=== PATIENT | female | born 1985 | race Caucasian/White ===

== ENCOUNTER 2018-03-21 01:31 | Inpatient (IN) | payer OTHER ==
[~2018-03-21] VITALS: Ht 162.6 cm; Wt 103.6 kg
[2018-03-21 04:15] LABS: CLARITY,URINE CLOUDY (CLEAR); COLOR,URINE AMBER (YELLOW)
[2018-03-21 04:16] LABS: BACTERIA,URINE MANY /HPF; BILIRUBIN,URINE NEGATIVE (NEGATIVE); EPITHELIAL CELLS,URINE FEW /LPF; KETONES,URINE TRACE (NEGATIVE); LEUKOCYTE ESTERASE ,URINE 1+ (NEGATIVE); MUCUS,URINE MANY (RARE); NITRITE,URINE POSITIVE (NEGATIVE); PROTEIN,URINE DIPSTICK 2+ (NEGATIVE); RBC,URINE >50 /HPF (0-5); URINE UROBILINOGEN 0.2 mg/dL (0.2 - 1); WBC,URINE (MAN) 21-50 /HPF (0-5)
[2018-03-21] MEDS ORDERED: CEFTRIAXONE SOD 1 GM/NS 50 ML 50 ML IV ONE (04:45)
[2018-03-21 04:46] LABS: BASOPHILS % 0.4 % (0.0-1.0); EOSINOPHILS # (AUTO) 0.4 (0.0-0.4); EOSINOPHILS % 4.1 % (0.0-6.0); HEMATOCRIT 42.7 % (34.2-44.1); HEMOGLOBIN 13.8 g/dL (12.0-16.0); LYMPHOCYTES # (AUTO) 5.6 (1.0-3.2); LYMPHOCYTES % 54.3 % (18.0-39.1); MEAN CORPUSCULAR HEMOGLOBIN 29.2 pg (28-32); MEAN CORPUSCULAR HGB CONC 32.3 g/dL (31-35); MEAN CORPUSCULAR VOLUME 90.5 fL (81-99); MONOCYTES # (AUTO) 0.6 (0.2-0.8); NEUTROPHILS # (AUTO) 3.6 (2.1-6.9); NEUTROPHILS % 34.7 % (38.7-80.0); PLATELET COUNT 268 x10e3/uL (140-360); RED BLOOD COUNT 4.72 x10e6/uL (3.6-5.1); RED CELL DISTRIBUTION WIDTH 13.7 % (11.7-14.4)
--- NOTE | 2018-03-21 05:03 | Diagnostic Imaging Report ---
EXAM: CT Abdomen and Pelvis WITHOUT contrast INDICATION: Pain COMPARISON: None. TECHNIQUE: Abdomen and Pelvis was scanned utilizing a multidetector helical scanner without the use of IV contrast. Coronal and sagittal reformations were obtained. IV CONTRAST: None COMPLICATIONS: None RADIATION DOSE: Total DLP: 851 mGy*cm Estimated effective dose: (DLP x 0.015 x size factor) mSv CTDIvol has been reviewed. It is below the limits set by the Radiation Protocol Committee (RPC). Appropriate CT dose reduction techniques were utilized. FINDINGS: Abdomen: Lung Bases: Respiratory motion limits. Solid Organs: Cholecystectomy clips. Several calculi right kidney, largest central renal pelvis 7 mm. No ureteral calculi. Nonenhanced images solid organs otherwise unremarkable. Upper GI Tract: Decompressed stomach limits evaluation. No small bowel obstructive changes. Vascularity: No aortic aneurysm. Lymph Nodes: No suspicious adenopathy. Other: None. Pelvis: Bladder: Decompressed, limiting evaluation. Other: IUD present. Colon: No acute colonic findings. Bones: Height loss superior endplate L5, likely secondary to Schmorl's node. IMPRESSION: 1. Several central calcifications right kidney, largest central renal pelvis 7 mm. Minimal inflammation about renal pelvis and proximal right ureter. Superimposed infection possible. Signed by: Dr. Dustin Diallo MD on 03/21/2018 5:00 AM
[2018-03-21 05:44] LABS: ALANINE AMINOTRANSFERASE 39 IU/L (0-55); ALBUMIN 3.6 g/dL (3.5-5.0); ALBUMIN/GLOBULIN RATIO 1.2 (0.8-2.0); ALKALINE PHOSPHATASE 52 IU/L (40-150); AMYLASE 35 U/L (25-125); ANION GAP 14.5 mmol/L (8-16); BLOOD UREA NITROGEN 9 mg/dL (7-26); BUN/CREATININE RATIO 15 (6-25); CALCIUM 9.1 mg/dL (8.4-10.2); CARBON DIOXIDE 17 mmol/L (22-29); CHLORIDE 109 mmol/L (98-107); CREATININE, SERUM 0.62 mg/dL (0.57-1.11); EST GLOMERULAR FILTRATION RATE > 60 ML/MIN (60-); GLUCOSE 93 mg/dL (74-118); LIPASE 46 U/L (8-78); POTASSIUM 3.5 mmol/L (3.5-5.1); SODIUM 137 mmol/L (136-145)
[2018-03-21] MEDS ORDERED: HYDROMORPHONE 1MG/1ML INJ IV PRN (06:15)
[2018-03-21] MEDS ORDERED: SODIUM CHLORIDE 0.9% 1000ML 1,000 ML ONE (06:22)
[2018-03-21] MEDS: SODIUM CHLORIDE 0.9% 1000ML 1,000 ML IV SCH ×3 (06:23→22:44)
[2018-03-21] MEDS ORDERED: MORPHINE SULFATE 2 MG/ML SYR 1ML IV PRN (06:30)
[2018-03-21] MEDS: ONDANSETRON HCL INJ 2MG/ML 2ML 2 MG/ML VIAL IV PRN ×4 (06:39→22:29)
[2018-03-21] MEDS: MEROPENEM 1GM 100 ML IV SCH ×3 (06:39→22:15)
--- NOTE | 2018-03-21 06:55 | NUR ---
ASSUMED CARE AT THIS TIME. PATIENT LAYING IN BED WITH EYES CLOSED. SKIN WARM AND DRY. RESP EVEN AND UNLABORED. NO SIGNS OF ACUTE DISTRESS NOTED AT THIS TIME.
[2018-03-21] MEDS ORDERED: ACETAMINOPHEN 325 MG TAB PO PRN (08:30)
[2018-03-21] MEDS ORDERED: HYDRALAZINE HCL 20 MG/ML VIAL IV PRN (08:30)
--- NOTE | 2018-03-21 08:41 | NUR ---
OMAR GALINDO, AMPLIFIER MECHANIC AT BEDSIDE FOR PATIENT EVAL AND DISCUSSING THE CURRENT PLAN OF CARE WITH PATIENT, VERBALIZED UNDERSTANDING. NO SIGNS OF ACUTE DISTRESS NOTED AT THIS TIME.
[2018-03-21] MEDS ORDERED: FLUOXETINE HCL20 MG PO (08:58)
[2018-03-21] MEDS ORDERED: GUAIFENESI100 MG/5 M (08:58)
--- NOTE | 2018-03-21 08:59 | NUR ---
DR Dariel POST AT BEDSIDE FOR PATIENT EVAL.
--- OUTSIDE RECORDS SUMMARY | 2018-03-21 09:03 | XMS REPORT ---
Author Author [facility] Address Unknown Phone Unavailable Care Team Providers Care Technician Anatomic Pathology Name Role Phone Arnav PEREZ Unavailable Unavailable Problems This patient has no known problems. Allergies, Adverse Reactions, Alerts Allergy Name Allergy Type Status Severity Reaction(s) Onset Date Inactive Date Treating Clinician Comments No Known Allergies DA Active U 2017-01-06 00:00:00 Medications This patient has no known medications. Results Test Description Test Time Test Comments Text Results Atomic Results Result Comments CT ABDOMEN/PELVIS WO 2018-03-21 04:56:00 [place] [address] Patient Name: YUSEF SMART MR #: [id number] : 1985 Age/Sex: 32/F Req #: [id number] Adm Physician: Ordered by: LORA PEREZ MD Report #: [id number] Location: ER Room/Bed: Procedure: 1960-1944 CT/CT ABDOMEN/PELVIS WO Exam Date: Exam Time: REPORT STATUS: Signed EXAM: CT Abdomen and Pelvis WITHOUT contrast INDICATION: Pain COMPARISON: None. TECHNIQUE: Abdomen and Pelvis was scanned utilizing a multidetector helical scanner without the use of IV contrast. Coronal and sagittal reformations were obtained. IV CONTRAST: None COMPLICATIONS: None RADIATION DOSE: Total DLP: 851 mGy*cm Estimated effective dose: (DLP x 0.015 x size factor) mSv C TDIvol has been reviewed. It is below the limits set by the Radiation Protocol Committee (RPC). Appropriate CT dose reduction techniques were utilized. FINDINGS: Abdomen: Lung Bases: Respiratory motion limits. Solid Organs: Cholecystectomy clips. Several calculi right kidney, largest central renal pelvis 7 mm. No ureteral calculi. Nonenhanced images solid organs otherwise unremarkable. Upper GI Tract: Decompressed stomach limits evaluation. No small bowel obstructive changes. Vascularity: No aortic aneurysm. Lymph Nodes: No suspicious adenopathy. Other: None. Pelvis: Bladder: Decompressed, limiting evaluation. Other: IUD present. Colon: No acute colonic findings. Bones: Height loss superior endplate L5, likely secondary to Schmorl's node. IMPRESSION: 1. Several central calcifications right kidney, largest central renal pelvis 7 mm. Minimal inflammation about renal pelvis and proximal right ureter. Superimposed infection possible. Signed by: Dr. Dustin Koehler MD on 03/21/2018 5:00 AM Dictated By: DUSTIN KOEHLER MD 9 Transcribed By: MARY on 03/21/18499 COPY TO: LORA PEREZ MD COMPREHENSIVE METABOLIC PANEL 2018-03-12 06:30:00 SODIUM (test code=NA) 139 mEq/L 134-147 POTASSIUM (test code=K) 3.8 mEq/L 3.4-5.0 CHLORIDE (test code=CL) 112 mEq/L 100-108 CARBON DIOXIDE (test code=CO2) 20 mEq/L 21-33 ANION GAP (test code=GAP) 11 0-20 GLUCOSE (test code=GLU) 87 mg/dL 70-110 BLOOD UREA NITROGEN (test code=BUN) 11 mg/dL 7-18 GLOMERULAR FILTRATION RATE (test code=GFR) 142.1 105-110 Units of measure=ml/min/1.73 m2 CREATININE (test code=CREAT) 0.5 mg/dL 0.6-1.3 TOTAL PROTEIN (test code=PROT) 6.9 g/dL 6.4-8.2 ALBUMIN (test code=ALB) 3.40 g/dL 3.4-5.0 CALCIUM (test code=CA) 8.4 mg/dL 8.0-10.5 BILIRUBIN TOTAL (test code=BILT) 0.30 mg/dL 0.0-1.0 SGOT/AST (test code=AST) 28 IUnit/L 15-37 SGPT/ALT (test code=ALT) 42 IUnit/L 15-65 ALKALINE PHOSPHATASE TOTAL (test code=ALKP) 61 IUnit/L 20-125 [facility] PHONE# for [phone] or [phone] PHONE [phone], FAX# [phone] W/AUTO [id number] 06:22:00* Test Item Value Reference Range Comments WHITE BLOOD CELL (test code=WBC) 8.67 x10 3/uL 4.5-11.0 RED BLOOD CELL (test code=RBC) 4.16 x10 6/uL 3.54-5.02 HEMOGLOBIN (test code=HGB) 12.2 g/dL 11.0-15.0 HEMATOCRIT (test code=HCT) 38.4 % 33.0-45.0 MEAN CELL VOLUME (test code=MCV) 92.3 fL 81.0-99.0 MEAN CELL HGB (test code=MCH) 29.3 pg 27.0-33.0 MEAN CELL HGB CONCETRATION (test code=MCHC) 31.8 g/dL 33.0-37.0 RED CELL DISTRIBUTION WIDTH CV (test code=RDW) 13.2 % 11.5-14.5 RED CELL DISTRIBUTION WIDTH SD (test code=RDW-SD) 44.7 fL 37.0-54.0 PLATELET COUNT (test code=PLT) 239 x10 3/uL 150-400 MEAN PLATELET VOLUME (test code=MPV) 10.5 fL 7.0-9.0 NEUTROPHIL % (test code=NT%) 49.7 % 56.0-77.0 IMMATURE GRANULOCYTE % (test code=IG%) 1.0 % 0.0-2.0 LYMPHOCYTE % (test code=LY%) 37.3 % 14.0-32.0 MONOCYTE % (test code=MO%) 7.3 % 4.8-9.0 EOSINOPHIL % (test code=EO%) 4.5 % 0.3-3.7 BASOPHIL % (test code=BA%) 0.2 % 0.0-2.0 NUCLEATED RBC % (test code=NRBC%) 0.0 % 0-0 NEUTROPHIL # (test code=NT#) 4.31 x10 3/uL 2.0-7.6 IMMATURE GRANULOCYTE # (test code=IG#) 0.09 x10 3/uL 0.00-0.03 LYMPHOCYTE # (test code=LY#) 3.23 x10 3/uL 1.0-3.8 MONOCYTE # (test code=MO#) 0.63 x10 3/uL 0.1-0.8 EOSINOPHIL # (test code=EO#) 0.39 x10 3/uL 0.0-0.2 BASOPHIL # (test code=BA#) 0.02 x10 3/uL 0.0-0.2 NUCLEATED RBC # (test code=NRBC#) 0.00 x10 3/uL 0.0-0.1 MANUAL DIFF REQUIRED (test code=MDIFF) [facility] PHONE# for [phone] or [phone] PHONE , FAX#
[2018-03-21] MEDS ORDERED: XARELTO20 MG PO (09:10)
[2018-03-21] MEDS ORDERED: ULTRAM 50MG50 MG PO (09:10)
[2018-03-21] MEDS ORDERED: ACETAMINOPHEN325 M1 PO (09:10)
[2018-03-21] MEDS ORDERED: MAALOX MAXIMUM355 ML PO (09:10)
[2018-03-21] MEDS ORDERED: TOPIRAMATE25 MG PO (09:10)
[2018-03-21] MEDS ORDERED: MIRALAX17 GM PO (09:10)
[2018-03-21] MEDS ORDERED: CHLORASEPTIC177 ML MT (09:10)
[2018-03-21] MEDS ORDERED: LAMICTAL100 MG PO (09:10)
[2018-03-21] MEDS ORDERED: VENLAFAXINE HCL75 M1 PO (09:10)
[2018-03-21] MEDS ORDERED: ZOFRAN4 MG PO (09:10)
[2018-03-21] MEDS ORDERED: TRANSDERM-SCOP1 EACH TD (09:10)
[2018-03-21] MEDS ORDERED: RISPERIDONE0.5 MG PO ×2 (09:10)
[2018-03-21] MEDS ORDERED: MELATONIN3 MG PO (09:10)
[2018-03-21] MEDS ORDERED: NAPROXEN250 MG PO (09:10)
[2018-03-21] MEDS ORDERED: LACTULOSE20 GM/30 M PO (09:10)
[2018-03-21] MEDS ORDERED: FLOMAX0.4 MG PO (09:10)
--- NOTE | 2018-03-21 09:50 | NUR ---
INCONTINENT CARE PROVIDED, CLEAN BRIEF APPLIED, TOLERATED WELL. HEAL PROTECTORS APPPLIED AND REPOSITIONED IN BED FOR COMFORT. NO SIGNS OF ACUTE DISTRESS NOTED AT THIS TIME
--- NOTE | 2018-03-21 09:55 | NUR ---
PATIENT VOMMITED APPROX 100ML YELLOW/GREEN EMESIS, CLEAN SHEETS APPLIED, PATIENT CLEANED, REPOSITIONED IN BED FOR COMFORT,CLEAN EMESIS BAG PROVIDED. SUCTION AT BEDSIDE. NO SIGNS OF ACUTE DISTRESS NOTED AT THIS TIME.
[2018-03-21] MEDS: MORPHINE SULFATE INJ 4 MG/ML INJ 1ML IV PRN ×2 (10:01→17:52)
[2018-03-21] MEDS: FAMOTIDINE 20 MG TAB PO SCH ×2 (10:02→17:42)
--- NOTE | 2018-03-21 10:04 | NUR ---
PATIENT AWAKE AND ALERT LAYING IN BED ON I-PAD. RESP EVEN AND UNLABORED. SKIN WARM AND DRY. NO SIGNS OF ACUTE DISTRESS NOTED AT THIS TIME.
[2018-03-21] MEDS ORDERED: GUAIFENESIN 200 MG/10 ML UDC PO PRN (10:15)
[2018-03-21] MEDS ORDERED: PROMETHAZINE 25MG/ NS 50ML (IV) IV PRN (11:00)
--- NOTE | 2018-03-21 11:40 | NUR ---
PATIENT REPOSITIONED IN BED FOR COMFORT, POSITIONING WEDGE PLACED UNDER RIGHT HIP, POSITIONED IN LEFT LATERAL, TOLERATED WELL. EDUCATED PATIENT AND FAMILY ON WEIGHT SHIFTING WHILE IN BED AND PRESSURE ULCER PREVENTION TECHNIQUES,VERBALIZED UNDERSTANDING. NO SIGNS OF ACUTE DISTRESS NOTED AT THIS TIME.
[2018-03-21] MEDS: SCOPOLAMINE 1.5 MG PATCH TD SCH (12:00)
--- NOTE | 2018-03-21 12:38 | NUR ---
PATIENT LAYING IN BED WITH EYES CLOSED. SKIN WARM AND DRY. RESP EVEN AND UNLABORED. NO SIGNS OF ACUTE DISTRESS NOTED AT THIS TIME.
--- NOTE | 2018-03-21 13:10 | NUR ---
PATIENT REFUSING TO TAKE SCHEDULED MEDICATIONS, STATES SHE HAS NOT EATEN AND WILL NOT TAKE MEDICATIONS UNTIL EATING, OFFER PATIENT LUNCH TRAY, PATIENT DECLINED. NO SIGNS OF ACUTE DISTRESS NOTED AT THIS TIME.
--- NOTE | 2018-03-21 13:18 | Consultation ---
DATE OF CONSULTATION: March 21, 2018 UROLOGY CONSULTATION REASON FOR CONSULTATION: Kidney stone and renal colic. HISTORY OF PRESENT ILLNESS: David Campbell is a 32-year-old woman with a history of urolithiasis. The patient has had a previous history of stone management, including ESWL and what sounds like stents and ureteroscopy as well. The patient had right-sided flank pain. She was brought from [facility] to the emergency room where she was evaluated, and found to have the diagnoses as below, and was appropriately admitted. The patient has recurrent urinary tract infections. She has had gross hematuria as well. She did not have any fever according to her. She does have urinary incontinence. She is debilitated and unable to get up. She voids into a diaper. PAST MEDICAL AND SURGICAL HISTORY 1. Status post tonsillectomy. 2. zero. 3. Multiple sclerosis. 4. Bipolar. 5. Depression. 6. Tremors. 7. Insomnia. 8. Obesity. ALLERGIES: NONE KNOWN. CURRENT MEDICATIONS: Refer to the MAR. SOCIAL HISTORY: The patient denies smoking, ethanol or drug use. 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 REVIEW OF SYSTEMS: As consistent above in the history of present illness and past medical history. Otherwise, negative for all other systems. FAMILY HISTORY: Noncontributory to the active urological problems. PHYSICAL EXAMINATION GENERAL: A very pleasant 32-year-old woman lying in bed in no apparent distress. VITALS: She is currently afebrile. Vital signs are currently stable. ABDOMEN: Soft, obese and nondistended. She is tender in the right flank with mild right-sided costovertebral angle tenderness. Kidneys not palpable without hepatosplenomegaly. No obvious evidence of hernia. GENITOURINARY: The patient has a diaper in place. The diaper had yellow urine without any sign of gross hematuria. For the remaining physical examination systems, please refer to the admission history and physical on the chart. LABORATORY STUDIES: The patient's white blood cell count is 10,350, hemoglobin 13.8 and platelets 268,000. The patient's creatinine is 0.62. Her calcium is normal at 9.1. Urinalysis significant for greater than 50 rbcs, 21-50 wbcs, many bacteria. Urine culture is pending. CT scan of the abdomen and pelvis was done as a stone protocol. It reveals several calculi in the right kidney. The largest is in the central renal pelvis measuring 7 mm. There is minimal inflammation around the renal pelvis and the right proximal ureter. ASSESSMENT 1. Right nephrolithiasis. 2. Right renal colic. 3. Urinary tract infection. 4. Hematuria. 5. Gross hematuria in the past. 6. Urinary incontinence. 7. Obesity. 8. Microhematuria. PLAN 1. IV antibiotics. 2. Admission. 3. Will follow. 4. Once the patient is appropriately on antibiotics, extracorporal shock wave lithotripsy, as well as possible ureteral stenting will be indicated. Thank you very much for involving us in the care of your patient. Will be happy to follow her along with you, as well as an outpatient. Job#: [id number] HANNAH
[2018-03-21] MEDS: HYDROMORPHONE 2MG/ML 2 MG/ML ML IV PRN (13:57)
[2018-03-21] MEDS: LAMOTRIGINE 100 MG TAB PO SCH ×2 (14:23→22:04)
[2018-03-21] MEDS: TOPIRAMATE 25 MG TAB PO SCH ×2 (14:23→22:05)
--- NOTE | 2018-03-21 14:25 | NUR ---
DR LE AT BEDSIDE FOR PATIENT EVAL.
--- NOTE | 2018-03-21 15:20 | NUR ---
INCONTINENT CARE PROVIDED, CLEAN BRIEF APPLIED, TOLERATED WELL. POSITIONING WEDGE PLACED UNDER LEFT HIP ,PATIENT REPOSITIONED IN RIGHT LATERAL. NO SIGNS OF ACUTE DISTRESS NOTED AT THIS TIME.
[2018-03-21 16:00] VITALS: BP 113/57
--- NOTE | 2018-03-21 16:29 | NUR ---
WOUND CARE CONSULTATION- INITIAL EVALUATION Patient admitted from [place] to ER for Renal Pelvis Calculous with pyelonephritis, dull flank pain for > 2 Wks. HX: MS, Contractures. LABS: WBC10.35 HCT42.7 NEUT%34.7 GLU93 ALB3.6 Wound Care Consulted for Bilateral Gluteal Ulcers: Patient Visit: -Fuad Score 10 -Strict PUP Active -Visco Mattress in place -Bilateral Heel Protectors - Patient in bed, in good spirits with Mother at bedside. - Head to toe assessment performed during visit. - Left Gluteal - Open skin area of 0.3x0.3x0.1cm - Scant Serosanguineous fluid. Healing with epithelialization to kimberlyn wound and pink healthy scarring. - Right Gluteal - 100% epithelialized. Bodfish, Healthy appearance. - Wilner Feet foot drop otherwise unremarkable. IMPRESSION: Bilateral Gluteal - Healing Stage II Pressure Ulcers Present On Admission RECOMMENDATION: 1. Bilateral Gluteal- Healing Stage II P.U. POA. - Cleanse areas with NS and 4x4 gauze and Pat Dry Thoroughly. - Apply Bryan Skin Barrier Every Other Day. - Apply Allevyn Life Sacrum Foam Dressings Daily and PRN Soiling. 2. Turn and Reposition Every 2 Hours 3. Alternating Pressure Air Mattress 4. Continue using Bilateral Heel Protectors. Thank you for Consulting with Wound Care. Addendum: 03/21/18 at 1637 by Yazan Vega RN Amended: Links added.
[2018-03-21 17:15] VITALS: BP 113/57
--- NOTE | 2018-03-21 17:33 | Consultation ---
DATE OF CONSULTATION: March 21, 2018 NEUROLOGY CONSULT NOTE HISTORY OF PRESENT ILLNESS: Ms. Campbell is a 32-year-old woman with past medical history significant for multiple sclerosis, admitted to [facility] on March 21, 2018, with a right renal pelvis calculus and pyelonephritis. The neurology service is consulted for management of multiple sclerosis. Ms. Campbell reports being diagnosed with multiple sclerosis "a long time ago." According to her mother, the patient first showed signs of multiple sclerosis at the age of 18 years. However, she was not diagnosed until her early 20s. As a result of her multiple sclerosis, the patient is unable to walk. She is losing strength in both arms. Ms. Campbell reports possible urinary retention with possible overflow urinary incontinence. Her mother reports cognitive impairment as a result of multiple sclerosis as well. Ms. Campbell was diagnosed by Dr. White in the [facility]. According to the patient, she has never received treatment for multiple sclerosis. Most recently, Ms. Campbell has been seen by Dr. Laisha Glaser at [facility] for further evaluation and treatment of her multiple sclerosis. At present, the patient is not taking any medications for treatment of multiple sclerosis. Dr. Glaser is in the process of collecting and reviewing the patient's prior medical records before recommending further evaluation and treatment. Ms. Campbell is receiving physical and occupational therapy at her custodial multiple days per week. Ms. Campbell does not report new or worsening neurological symptoms suspicious for a multiple sclerosis exacerbation at present. REVIEW OF SYSTEMS: Abdominal/flank pain, nausea, vomiting, dysphasia for 1 year, dark discoloration to the urine, malodorous urine, urinary frequency, urinary urgency, cognitive impairment, weakness of the arms and legs, urinary incontinence, possible urinary retention, word finding difficulty. PAST MEDICAL HISTORY: Reactive airway disease, bipolar disorder, multiple sclerosis, chronic pain, prior pulmonary embolus and DVT, multiple bouts of pneumonia, decubitus ulcers. PAST SURGICAL HISTORY: Cholecystectomy, tonsillectomy/adenoidectomy, left knee surgery, lithotripsy, surgery to remove renal calculus. PAST HOSPITALIZATIONS: Surgeries/procedures as listed, multiple hospitalizations for pneumonia, unknown prior hospitalizations for multiple sclerosis exacerbations. FAMILY MEDICAL HISTORY: The patient's paternal and maternal grandparents are . Their medical histories are unknown. The patient's father is alive and has asthma. The patient's mother is alive and has a clotting disorder requiring her to take aspirin daily. Ms. Campbell has one sibling, a brother, who is alive. Her brother has asthma, eczema, macular degeneration, and glaucoma. The patient has no children. SOCIAL HISTORY: Ms. Campbell is single. She resides in a custodial. The patient is on disability. Ms. Campbell does not report current or prior tobacco or recreational drug use. She reports occasional alcohol use. HOME MEDICATIONS: Reviewed. Please see the list of home medications available in the electronic medical record. ALLERGIES: NO KNOWN DRUG ALLERGIES. FISH. NO KNOWN ALLERGIES TO LATEX. NO KNOWN ALLERGIES TO IODINE OR OTHER CONTRAST MATERIALS. PHYSICAL EXAMINATION VITAL SIGNS: Height 64 inches, weight 210 pounds, BMI 36.0 kg per meter squared. Blood pressure 114/63 mmHg, pulse 95 beats per minute, respiratory rate 20 breaths per minute, oxygen saturation 97% on room air. GENERAL: The patient is awake and alert, does not appear distressed. Obese. HEENT: Normocephalic and atraumatic. Pupils are equal, round and reactive to light. Moist mucous membranes. NECK: Supple. No appreciable thyromegaly. No appreciable carotid bruits. CARDIOVASCULAR: S1, S2. Regular rate and rhythm. No murmurs, rubs, or gallops. RESPIRATORY: Clear to auscultation bilaterally. No wheezes, rhonchi, or rales. EXTREMITIES: The skin is warm and dry. No clubbing, cyanosis, or edema. The posterior tibial and dorsalis pedis pulses are 2+ and symmetric. SKIN: According to the emergency center documentation, the patient has stage 2 decubitus ulcers on both buttocks. NEUROLOGIC Memory/Attention: The patient is awake and alert. Oriented to person, place, time and situation. Cranial Nerves: Cranial nerve I--not tested. Cranial nerve II, III, IV, and --pupils are equal and round, react briskly to light (from 4 mm to 2 mm). Extraocular movements intact. No nystagmus. Cranial nerve V--sensation to light touch and pinprick is intact in the bilateral V1 through V3 distributions. Strength of the temporalis and masseter muscles is within normal limits. Cranial nerve VII--the face is symmetric as are all facial movements. Strength is within normal limits. Cranial nerve VIII--hearing is intact to finger rub bilaterally. Cranial nerve IX, X--the soft palate elevates equally and symmetrically. Cranial nerve XI--normal strength of the bilateral sternocleidomastoid and trapezius muscles. Cranial nerve XII--the tongue protrudes midline and moves symmetrically from side to side. Strength: Bulk is diminished in the legs. Strength is 3/5 in the arms with drift in the right arm. Strength is 0/5 in both legs. Tone is markedly increased in both legs and the left arm. Tone is normal in the right arm. DTRs: Deep tendon reflexes are 3+ at the left triceps, biceps, brachioradialis, bilateral patellas, and bilateral Achilles. Deep tendon reflexes are 2+ at the right triceps, biceps, and brachioradialis. Plantar responses are mute bilaterally. Sensation: Sensation is intact to noxious stimulation in both arms and both legs. Cerebellar: Ncagvo-gpxz-ojpbci and heel-ramos movements are impaired but within the bounds of paresis. Gait: Deferred. Speech: Spontaneous speech is mildly dysarthric without aphasia. Repetition is intact. Involuntary Movements: None. Pronator Drift: As per motor exam. LABORATORY DATA: A comprehensive metabolic panel shows an elevated chloride of 109, and a carbon dioxide 17. Amylase 35. Lipase 46. The CBC with differential and platelets reveals a white blood cell count of 10.35 with a right shift with 34.7% neutrophils, 54.3% lymphocytes, 6.0% monocytes, 4.1% eosinophils, and 0.4% basophils. A urinalysis revealed ez colored urine, cloudy, with a specific gravity of 1.030, 2+ protein, trace ketones, 4+ blood, positive nitrites, 1+ leukocyte esterase, greater than 50 red blood cells, 21 to 50 white blood cells, few urine epithelials cells, and many urine bacteria. A urine culture has been collected and is pending. A urine test is negative. DIAGNOSTIC STUDIES: CT of the abdomen/pelvis without contrast 03/21/2018: Several central calcifications, right kidney, largest central renal pelvis 7 mm. Minimal inflammation about renal pelvis and proximal right ureter. Superimposed infection possible. ASSESSMENT AND PLAN: Ms. Campbell is a 32-year-old woman with reported multiple sclerosis, admitted to [facility] on March 21, 2018, with right renal pelvis calculus with pyelonephritis. The patient has undergone a thorough neurological examination with findings detailed above. Her laboratory data and other diagnostic studies have been reviewed and are documented above. I will make an effort to contact the patient's outpatient neurologist to determine whether or not any diagnostic study should be performed while the patient is in the hospital. Otherwise, initiation of disease modifying therapy is not recommended at this time. Thank you for this consultation. I will continue to follow the patient while she remains in the hospital. TIME SPENT: 70 minutes. Job#: [id number] JORGE CATALAN
--- NOTE | 2018-03-21 17:34 | NUR ---
PT ADMITTED FROM ER 1620 TO RM 213, [id number], TRANSPORTED VIA STRETCHER, HX OF MS PT IS PARAPLEGIC AND HAS SOME CONTRACTIONS ON UPPER EXTREMITIES BUT CAN FEED SELF. PT HAS A STAGE 2 ON RT SACRUM AND STAGE 1 ON LT SACRUM. DRESSING CHANGE AND INTACT. GENERAL SKIN INTACT. IN ROOM WITH MOTHER, ORIENTED TO ROOM AND CALL LIGHT IN PLACE. PAIN MEDS GIVEN ORDERED. WILL CONTINUE TO MONITOR. NOT MUCH FROM FAMILY HISTORY BUT BROTHER WITH ASTHMA. PT IS ON RA AND NO DISTRESS NOTED. WILL CONTINUE TO MONITOR.
--- NOTE | 2018-03-21 19:30 | NUR ---
Patient received lying in bed. Mother at bedside. AAO x 3. Patient had no complaints of pain. No signs of respiratory distress. Fall precautions maintained. Patient instructed to call for assistance when needed. Call light within reach.
[2018-03-21 20:00] VITALS: BP 97/57
--- NOTE | 2018-03-21 20:57 | NUR ---
Patient assessed and noted to be wheezing. An order received from Estrella Teague ([facility]SS[facility]) for Nebulizer treatments Q4 PRN.
[2018-03-21] MEDS ORDERED: ALBUTEROL/IPRATROPIUM 3 ML NEB NEB PRN (21:15)
[2018-03-21] MEDS: RISPERIDONE 0.5 MG TAB PO SCH (22:05)
[2018-03-21] MEDS: MELATONIN 3 MG TAB PO SCH (22:05)
[2018-03-21] MEDS: TRAMADOL HCL 50 MG TAB PO PRN (22:28)
[2018-03-22] VITALS (8 sets, daily range): BP systolic 97–132; BP diastolic 51–73
[2018-03-22] MEDS: LAMOTRIGINE 100 MG TAB PO SCH ×3 (01:30→21:00)
[2018-03-22] MEDS: MELATONIN 3 MG TAB PO SCH ×2 (01:30→21:00)
[2018-03-22] MEDS: TOPIRAMATE 25 MG TAB PO SCH ×3 (01:30→21:00)
[2018-03-22] MEDS: RISPERIDONE 0.5 MG TAB PO SCH ×3 (01:30→21:00)
[2018-03-22] MEDS: MEROPENEM 1GM 100 ML IV SCH ×3 (06:24→22:00)
[2018-03-22] MEDS: SODIUM CHLORIDE 0.9% 1000ML 1,000 ML IV SCH ×3 (06:25→22:10)
[2018-03-22 07:26] LABS: BASOPHILS % 0.3 % (0.0-1.0); EOSINOPHILS # (AUTO) 0.3 (0.0-0.4); EOSINOPHILS % 4.2 % (0.0-6.0); HEMATOCRIT 35.8 % (34.2-44.1); HEMOGLOBIN 11.6 g/dL (12.0-16.0); LYMPHOCYTES # (AUTO) 2.9 (1.0-3.2); LYMPHOCYTES % 46.7 % (18.0-39.1); MEAN CORPUSCULAR HEMOGLOBIN 29.3 pg (28-32); MEAN CORPUSCULAR HGB CONC 32.4 g/dL (31-35); MEAN CORPUSCULAR VOLUME 90.4 fL (81-99); MONOCYTES # (AUTO) 0.5 (0.2-0.8); MONOCYTES % 7.2 % (4.4-11.3); NEUTROPHILS # (AUTO) 2.5 (2.1-6.9); PLATELET COUNT 231 x10e3/uL (140-360); RED BLOOD COUNT 3.96 x10e6/uL (3.6-5.1); RED CELL DISTRIBUTION WIDTH 13.8 % (11.7-14.4)
--- NOTE | 2018-03-22 07:26 | NUR ---
Walking rounds done. Shift report given to oncoming nurse.
[2018-03-22 07:43] LABS: ANION GAP 9.7 mmol/L (8-16); BLOOD UREA NITROGEN 7 mg/dL (7-26); BUN/CREATININE RATIO 11 (6-25); CALCIUM 8.1 mg/dL (8.4-10.2); CARBON DIOXIDE 18 mmol/L (22-29); CHLORIDE 115 mmol/L (98-107); CREATININE, SERUM 0.65 mg/dL (0.57-1.11); EST GLOMERULAR FILTRATION RATE > 60 ML/MIN (60-); GLUCOSE 87 mg/dL (74-118); POTASSIUM 3.7 mmol/L (3.5-5.1); SODIUM 139 mmol/L (136-145)
[2018-03-22] MEDS: FLUOXETINE HCL 20 MG CAP PO SCH (09:41)
[2018-03-22] MEDS: MORPHINE SULFATE INJ 4 MG/ML INJ 1ML IV PRN ×3 (09:41→21:00)
[2018-03-22] MEDS: FAMOTIDINE 20 MG TAB PO SCH ×2 (09:41→16:30)
[2018-03-22] MEDS: TAMSULOSIN HCL 0.4 MG CAP PO SCH (09:41)
[2018-03-22] MEDS: ONDANSETRON HCL INJ 2MG/ML 2ML 2 MG/ML VIAL IV PRN ×3 (09:41→21:28)
[2018-03-22] MEDS: ALBUTEROL/IPRATROPIUM 3 ML NEB NEB SCH ×3 (11:00→20:25)
[2018-03-22] MEDS: LORATADINE 10 MG TAB PO SCH (11:15)
[2018-03-22] MEDS ORDERED: LACTULOSE SYRUP 20 GM/30 ML UDC PO PRN (11:15)
[2018-03-22] MEDS ORDERED: ONDANSETRON HCL INJ 2MG/ML 2ML 2 MG/ML VIAL ONE ×2 (13:31→19:12)
[2018-03-22] MEDS ORDERED: PROPOFOL IV EMULSION 10 MG/ML 20 ML VIAL ONE (13:31)
[2018-03-22] MEDS ORDERED: LIDOCAINE HCL 2% LOCAL INJ 5 ML SDV VIAL INJ ONE (13:31)
[2018-03-22] MEDS ORDERED: DEXAMETHASONE SOD PHOS INJ 4 MG/ML VIAL ONE (13:31)
[2018-03-22] MEDS ORDERED: SEVOFLURANE INHAL SOLN 250 ML PEN BTL ONE (13:31)
[2018-03-22] MEDS ORDERED: MIDAZOLAM HCL 2 MG/2 ML VIAL ONE (13:39)
--- NOTE | 2018-03-22 15:28 | NUR ---
CASE MANAGEMENT INITIAL ASSESSMENT Mailing Clerk to bedside to discuss plan of care with patient/family. CM/SW role and care transitions discussed. Anticipated discharge plan discussed along with duration of care. CM/SW discussed patients right to make decisions in care. CM/SW work hours given. Patient lives: at [facility] Admit/Transfer: thru ED Hospital/ER visits since last admit: last hospitalization in 2017 POA/Emergency contact: kvng Campbell [phone] (cell), (work) Current/Previous Home Health: none PCP/Follow-up Care: Pt and her mom does not remember name of MD following pt at [facility], as she has only been there less than 1 week. Current/Previous DME: wheelchair, nebulizer Medications (referring to index hospitalization or the first time you were in the hospital) a. Were changes made in your medications when you were in the hospital on [date of index hospitalization]? n/a b. Did you understand the changes? n/a c. Were you able to obtain your new medications right away? n/a d. Were you able to take your medications like the doctor wanted you to? n/a e. Did the hospital give you an accurate, easy to understand list of medications when you left? n/a Scale of 1-10 how comfortable does patient feel with disease management in outpatient setting: Other Services: none Employment Status: unemployed Areas of Concerns: renal calculus, pyelonephritis Referral Needs: none, will return to [place] on discharge Education Needs: medical management IMM/GOMEZ given and signed (if applicable): n/a Goal for discharge: back to [facility] - choice letter signed and placed in chart. copy given to pt's mom. CM/SW left business card at the bedside with contact information. Name and number was also written on the patients whiteboard. Patient verbalized understanding of discussion. CM will follow-up with ongoing discharge and transition of care needs.
--- NOTE | 2018-03-22 16:02 | NUR ---
SPOKE WITH [facility] AND LET KNOW PT WAITING ON UROLOGY AND SHOULD BE READY TO SEND BACK TO FACILITY TOMORROW. SHE IS A [facility] PATIENT THERE AND WILL ONLY NEED NURSE TO CALL REPORT TO [phone]. SHE WILL RETURN TO HER ROOM AT FACILITY. ONCE DISCHARGE ORDER IS RECEIVED READY FOR DISCHARGE FROM CM STANDPOINT.
[2018-03-22] MEDS ORDERED: BELLADONNA/OPIUM 30 MG SUPP RC ONE ×2 (16:54→18:08)
[2018-03-22] MEDS ORDERED: IOPAMIDOL 610MG/1ML 300 MG/ML VIAL IV ONE ×2 (16:54→18:08)
[2018-03-22] MEDS: OYST-CAL-D 500MG TABLET PO SCH (17:00)
--- NOTE | 2018-03-22 17:35 | NUR ---
PATIENT OFF UNIT FOR CYSTOSCOPY WITH POSSIBLE STENT PLACEMENT.
[2018-03-22] MEDS ORDERED: FENTANYL CITRATE/PF 100MCG/2 ML INJ ONE (19:04)
--- NOTE | 2018-03-22 19:05 | NUR ---
PATIENT CONTINUES OFF UNIT, REPORT GIVEN TO ONCOMING NURSE.
[2018-03-22] MEDS ORDERED: METOCLOPRAMIDE HCL 10 MG/2ML VIAL ONE (19:12)
--- NOTE | 2018-03-22 19:30 | NUR ---
Patient back to room from Cystoscopy /Retrograde pyelogram procedure. Patient assessed and in stable condition.
--- NOTE | 2018-03-22 22:00 | NUR ---
Patient refused medications scheduled for 2100 except Merrem 1gm and pain medications. Patient's mother notified (Daria) of patient's refusal of medications. Mother arrived at facility and encouraged patient to take her medications. Medication administered at 0100.
[2018-03-22] MEDS: TRAMADOL HCL 50 MG TAB PO PRN (22:37)
[2018-03-22] MEDS: HYDROMORPHONE 2MG/ML 2 MG/ML ML IV PRN (23:34)
[2018-03-23] VITALS (9 sets, daily range): BP systolic 108–132; BP diastolic 56–73
[2018-03-23] MEDS: RISPERIDONE 0.5 MG TAB PO SCH ×3 (01:00→21:35)
[2018-03-23] MEDS: TOPIRAMATE 25 MG TAB PO SCH ×3 (01:00→21:35)
[2018-03-23] MEDS: MELATONIN 3 MG TAB PO SCH ×2 (01:00→21:35)
[2018-03-23] MEDS: LAMOTRIGINE 100 MG TAB PO SCH ×3 (01:00→21:35)
[2018-03-23] MEDS: ALBUTEROL/IPRATROPIUM 3 ML NEB NEB SCH ×4 (01:30→19:00)
--- NOTE | 2018-03-23 03:30 | NUR ---
Blood specimen sent to lab for analysis.
[2018-03-23 04:30] LABS: BASOPHILS % 0.3 % (0.0-1.0); EOSINOPHILS % 0.1 % (0.0-6.0); HEMATOCRIT 36.1 % (34.2-44.1); HEMOGLOBIN 11.4 g/dL (12.0-16.0); LYMPHOCYTES % 14.2 % (18.0-39.1); MEAN CORPUSCULAR HEMOGLOBIN 29.1 pg (28-32); MEAN CORPUSCULAR HGB CONC 31.6 g/dL (31-35); MEAN CORPUSCULAR VOLUME 92.1 fL (81-99); MONOCYTES # (AUTO) 0.2 (0.2-0.8); MONOCYTES % 2.5 % (4.4-11.3); NEUTROPHILS # (AUTO) 5.5 (2.1-6.9); NEUTROPHILS % 81.6 % (38.7-80.0); PLATELET COUNT 221 x10e3/uL (140-360); RED BLOOD COUNT 3.92 x10e6/uL (3.6-5.1); RED CELL DISTRIBUTION WIDTH 13.8 % (11.7-14.4)
[2018-03-23] MEDS: MORPHINE SULFATE INJ 4 MG/ML INJ 1ML IV PRN (04:33)
[2018-03-23] MEDS: ONDANSETRON HCL INJ 2MG/ML 2ML 2 MG/ML VIAL IV PRN ×3 (04:34→21:35)
[2018-03-23 04:52] LABS: ANION GAP 10.9 mmol/L (8-16); BLOOD UREA NITROGEN 5 mg/dL (7-26); BUN/CREATININE RATIO 7 (6-25); CALCIUM 8.3 mg/dL (8.4-10.2); CARBON DIOXIDE 16 mmol/L (22-29); CHLORIDE 115 mmol/L (98-107); CREATININE, SERUM 0.74 mg/dL (0.57-1.11); EST GLOMERULAR FILTRATION RATE > 60 ML/MIN (60-); GLUCOSE 142 mg/dL (74-118); MAGNESIUM 2.1 MG/DL (1.3-2.1); POTASSIUM 3.9 mmol/L (3.5-5.1); SODIUM 138 mmol/L (136-145)
[2018-03-23] MEDS: MEROPENEM 1GM 100 ML IV SCH (06:30)
[2018-03-23] MEDS: SODIUM CHLORIDE 0.9% 1000ML 1,000 ML IV SCH ×3 (06:30→22:10)
[2018-03-23] MEDS ORDERED: CEFTRIAXONE SOD 1 GM VIAL IV SCH (09:00)
[2018-03-23] MEDS: RIVAROXABAN 20 MG TABLET PO SCH (09:00)
[2018-03-23] MEDS: FAMOTIDINE 20 MG TAB PO SCH ×2 (09:33→17:04)
[2018-03-23] MEDS: OYST-CAL-D 500MG TABLET PO SCH ×2 (09:33→17:04)
[2018-03-23] MEDS: VENLAFAXINE HCL 75 MG CAPCR PO SCH (09:33)
[2018-03-23] MEDS: TAMSULOSIN HCL 0.4 MG CAP PO SCH (09:33)
[2018-03-23] MEDS: FLUOXETINE HCL 20 MG CAP PO SCH (09:33)
[2018-03-23] MEDS: HYDROMORPHONE 2MG/ML 2 MG/ML ML IV PRN ×4 (09:33→21:35)
[2018-03-23] MEDS: LORATADINE 10 MG TAB PO SCH (09:33)
[2018-03-23] MEDS: CEFTRIAXONE SOD 1 GM/NS 50 ML 50 ML IV SCH (09:41)
[2018-03-23] MEDS: FLUTICASONE PROPIONATE NASAL SPRAY NS SCH ×2 (10:12→17:04)
[2018-03-23] MEDS: PHENAZOPYRIDINE HCL 100 MG TAB PO SCH ×2 (17:05→21:35)
--- NOTE | 2018-03-23 17:05 | NUR ---
per may administer 1st dose pyridium now.
[2018-03-23] MEDS: OXYBUTYNIN CHLORIDE 5 MG TAB PO SCH (21:35)
[2018-03-24 00:36] VITALS: BP 103/80
[2018-03-24] MEDS: ALBUTEROL/IPRATROPIUM 3 ML NEB NEB SCH ×4 (01:00→19:00)
[2018-03-24 05:07] LABS: BASOPHILS % 0.4 % (0.0-1.0); EOSINOPHILS # (AUTO) 0.6 (0.0-0.4); EOSINOPHILS % 6.9 % (0.0-6.0); HEMATOCRIT 34.6 % (34.2-44.1); HEMOGLOBIN 10.7 g/dL (12.0-16.0); LYMPHOCYTES # (AUTO) 3.7 (1.0-3.2); LYMPHOCYTES % 43.2 % (18.0-39.1); MEAN CORPUSCULAR HEMOGLOBIN 28.7 pg (28-32); MEAN CORPUSCULAR HGB CONC 30.9 g/dL (31-35); MEAN CORPUSCULAR VOLUME 92.8 fL (81-99); MONOCYTES # (AUTO) 0.5 (0.2-0.8); MONOCYTES % 6.3 % (4.4-11.3); NEUTROPHILS # (AUTO) 3.7 (2.1-6.9); NEUTROPHILS % 42.6 % (38.7-80.0); PLATELET COUNT 215 x10e3/uL (140-360); RED BLOOD COUNT 3.73 x10e6/uL (3.6-5.1); RED CELL DISTRIBUTION WIDTH 14.2 % (11.7-14.4)
[2018-03-24] MEDS: ONDANSETRON HCL INJ 2MG/ML 2ML 2 MG/ML VIAL IV PRN ×2 (05:21→21:38)
[2018-03-24] MEDS: HYDROMORPHONE 2MG/ML 2 MG/ML ML IV PRN ×3 (05:21→21:38)
[2018-03-24 05:30] LABS: BLOOD UREA NITROGEN 7 mg/dL (7-26); BUN/CREATININE RATIO 12 (6-25); CALCIUM 8.3 mg/dL (8.4-10.2); CARBON DIOXIDE 18 mmol/L (22-29); CHLORIDE 114 mmol/L (98-107); CREATININE, SERUM 0.59 mg/dL (0.57-1.11); EST GLOMERULAR FILTRATION RATE > 60 ML/MIN (60-); GLUCOSE 87 mg/dL (74-118); MAGNESIUM 1.9 MG/DL (1.3-2.1); SODIUM 138 mmol/L (136-145)
[2018-03-24 05:59] VITALS: BP 125/65
[2018-03-24] MEDS: SODIUM CHLORIDE 0.9% 1000ML 1,000 ML IV SCH ×3 (06:10→22:10)
[2018-03-24 07:47] VITALS: BP 117/62
[2018-03-24 08:08] VITALS: BP 117/62
[2018-03-24] MEDS: CEFTRIAXONE SOD 1 GM/NS 50 ML 50 ML IV SCH (09:25)
[2018-03-24] MEDS: FLUTICASONE PROPIONATE NASAL SPRAY NS SCH ×2 (09:25→17:19)
[2018-03-24] MEDS: FAMOTIDINE 20 MG TAB PO SCH ×2 (09:25→15:35)
[2018-03-24] MEDS: LORATADINE 10 MG TAB PO SCH (09:25)
[2018-03-24] MEDS: OYST-CAL-D 500MG TABLET PO SCH ×2 (09:26→17:19)
[2018-03-24] MEDS: TOPIRAMATE 25 MG TAB PO SCH ×2 (09:26→21:37)
[2018-03-24] MEDS: FLUOXETINE HCL 20 MG CAP PO SCH (09:26)
[2018-03-24] MEDS: RIVAROXABAN 20 MG TABLET PO SCH (09:26)
[2018-03-24] MEDS: TAMSULOSIN HCL 0.4 MG CAP PO SCH (09:26)
[2018-03-24] MEDS: PHENAZOPYRIDINE HCL 100 MG TAB PO SCH ×3 (09:26→21:37)
[2018-03-24] MEDS: LAMOTRIGINE 100 MG TAB PO SCH ×2 (09:26→21:37)
[2018-03-24] MEDS: RISPERIDONE 0.5 MG TAB PO SCH ×2 (09:26→21:37)
[2018-03-24] MEDS: VENLAFAXINE HCL 75 MG CAPCR PO SCH (09:26)
[2018-03-24] MEDS: OXYBUTYNIN CHLORIDE 5 MG TAB PO SCH ×3 (09:26→21:37)
[2018-03-24 12:02] VITALS: BP 112/60
[2018-03-24] MEDS: SCOPOLAMINE 1.5 MG PATCH TD SCH (12:48)
[2018-03-24 17:03] VITALS: BP 103/56
[2018-03-24] MEDS: MELATONIN 3 MG TAB PO SCH (21:37)
[2018-03-25] VITALS (9 sets, daily range): BP systolic 90–118; BP diastolic 52–58
[2018-03-25] MEDS: ALBUTEROL/IPRATROPIUM 3 ML NEB NEB SCH ×4 (01:00→20:18)
[2018-03-25] MEDS: SODIUM CHLORIDE 0.9% 1000ML 1,000 ML IV SCH ×3 (06:10→22:10)
[2018-03-25] MEDS: RISPERIDONE 0.5 MG TAB PO SCH ×2 (09:00→21:06)
[2018-03-25] MEDS: VENLAFAXINE HCL 75 MG CAPCR PO SCH (10:17)
[2018-03-25] MEDS: LAMOTRIGINE 100 MG TAB PO SCH ×2 (10:17→21:06)
[2018-03-25] MEDS: OXYBUTYNIN CHLORIDE 5 MG TAB PO SCH ×3 (10:17→21:06)
[2018-03-25] MEDS: OYST-CAL-D 500MG TABLET PO SCH ×2 (10:17→17:25)
[2018-03-25] MEDS: LORATADINE 10 MG TAB PO SCH (10:17)
[2018-03-25] MEDS: TAMSULOSIN HCL 0.4 MG CAP PO SCH (10:17)
[2018-03-25] MEDS: TOPIRAMATE 25 MG TAB PO SCH ×2 (10:17→21:06)
[2018-03-25] MEDS: FAMOTIDINE 20 MG TAB PO SCH ×2 (10:17→16:10)
[2018-03-25] MEDS: HYDROMORPHONE 2MG/ML 2 MG/ML ML IV PRN ×2 (10:17→14:08)
[2018-03-25] MEDS: FLUTICASONE PROPIONATE NASAL SPRAY NS SCH ×2 (10:17→17:25)
[2018-03-25] MEDS: FLUOXETINE HCL 20 MG CAP PO SCH (10:17)
[2018-03-25] MEDS: PHENAZOPYRIDINE HCL 100 MG TAB PO SCH ×3 (10:17→21:06)
[2018-03-25] MEDS: RIVAROXABAN 20 MG TABLET PO SCH (10:17)
[2018-03-25] MEDS: CEFTRIAXONE SOD 1 GM/NS 50 ML 50 ML IV SCH (10:17)
--- NOTE | 2018-03-25 12:11 | NUR ---
PT WILL RETURN TO PCB DESIGN ENGINEER CARE PLACEMENT, RTF COMPLETED AND PUT ON CHART. CALLED MOTHER MURALI EDUCATED ABOUT IMM, SHE STATES JUST TO LET HER KNOW WHEN SHE IS BEING TRANSPORTED BACK TO FACILITY. SHE STATES NO PREFERENCE ON TRANSPORT BACK TO FACILITY. RTF COMPLETED AND GIVEN TO NURSE, CLINICALS PUT IN ENVELOPE TO RETURN WITH PT BACK TO FACILITY. POST DISCHARGE FORM SIGNED AND FILED IN CHART. PT TO GO TO ROOM 109B UNDER DR SHERRIE MYRICK. CALL REPORT TO [phone].
--- NOTE | 2018-03-25 19:40 | NUR ---
Patient visited in room during nursing rounds. Patient bed bound and extremely weak on all extremities. Mother at bedside. Allevyn covering right and left buttock ulcers (Stage 2 and 1 respectively). Pt c/o of frequent pain on right side. Patient aware BP low at 94/54. Informed pt will re-check BP later and when above 100 SBP, pt will have pain med.
[2018-03-25] MEDS ORDERED: Albuterol/Ipratropium Nebulize NEB ×2 (20:01)
[2018-03-25] MEDS ORDERED: FAMOTIDINE20 MG PO (20:01)
[2018-03-25] MEDS ORDERED: ASCORBIC ACID500 MG PO (20:01)
[2018-03-25] MEDS ORDERED: PYRIDIUM100 MG PO (20:01)
[2018-03-25] MEDS ORDERED: Hydrocodone/Apap 10MG-325MG PO (20:01)
[2018-03-25] MEDS ORDERED: Calcium Carbonate PO (20:01)
[2018-03-25] MEDS ORDERED: OXYBUTYNIN CHLOR5 MG PO (20:01)
[2018-03-25] MEDS: MELATONIN 3 MG TAB PO SCH (21:06)
--- NOTE | 2018-03-25 21:30 | NUR ---
Nurse (Curly) spoke to Dariashe Campbell (mother). Daria requested that patient not be discharged or transferred to [facility]. Informed mother that Sergio Nascimento will be called and asked about this request.
--- NOTE | 2018-03-25 22:00 | NUR ---
Patient requested to be disconnnected from IVF. IV saline locked at this time.
[2018-03-25] MEDS: ONDANSETRON HCL INJ 2MG/ML 2ML 2 MG/ML VIAL IV PRN (22:23)
--- NOTE | 2018-03-25 22:40 | NUR ---
Called and spoke with Sarah (nurse at [facility]) for report. Sarah mentioned that since patient still has pain, she might send patient back to the hospital. She also said its too late at night and suggested best to d/c patient tomorrow morning.
--- NOTE | 2018-03-25 22:52 | NUR ---
Called and spoke with Sergio Nascimento to inform that patient is refusing to be transferred tonight; mother request for patient to stay tonight and possibly d/c tomorrow morning (03/27/18); nurse at [facility] informing she might send pt back to hospital if pt still c/o pain. Sergio decided to keep pt at the hospital tonight and will re-evaluate pt tomorrow.
--- NOTE | 2018-03-25 22:57 | NUR ---
Called and spoke to Daria (mother) to inform pt will stay tonight per order from Sergio Nascimento NP.
[2018-03-26] VITALS (7 sets, daily range): BP systolic 103–123; BP diastolic 55–92
[2018-03-26] MEDS: HYDROCODONE/APAP 10MG-325MG TAB PO PRN ×3 (00:23→15:56)
[2018-03-26] MEDS: ALBUTEROL/IPRATROPIUM 3 ML NEB NEB SCH ×4 (01:25→20:37)
--- NOTE | 2018-03-26 04:54 | Discharge Summary ---
NO DICTATION (length 00:16 seconds) ABDULLAHI FERREIRA MD Job#: [id number] CF
--- NOTE | 2018-03-26 05:20 | Discharge Summary ---
PERTINENT HISTORY AND PHYSICAL FINDINGS: Ms. Campbell is a 32-year-old female who initially complained of sharp, constant right flank pain for 2 weeks. Nothing improved the pain or worsened the pain. She denied fever, dysuria, hematuria, or frequency. She is a resident of [facility]. PAST MEDICAL HISTORY: Significant for pneumonia, bipolar depression, tremors, insomnia, and kidney stones. The patient's outpatient neurologist spoke with Dr. Watts today and per their discussion the patient does not a definite diagnosis of multiple sclerosis. PAST SURGICAL HISTORY: Tonsillectomy. ALLERGIES: NONE KNOWN. ADMISSION DIAGNOSES 1. Urinary tract infection. 2. Kidney stones. 3. Multiple sclerosis. 4. Bipolar depression. 5. Tremors. 6. Insomnia. DISCHARGE DIAGNOSES 1. Right nephrolithiasis, status post stent March 17, 2018. 2. Urinary tract infection with Escherichia coli. 3. Possible multiple sclerosis. 4. Bipolar depression. 5. Insomnia. 6. Hypocalcemia. 7. Bilateral buttock decubitus ulcers, stage 1 on the left side and stage 2 on the right. 8. [facility] the [facility]. 9. Morbid obesity. During her stay, Dr. Warren with urology and Dr. Watts with neurology followed the patient. Patient's white blood cell count is improved to 8.56. BUN 7 and creatinine 0.59. GFR greater than 60. B-type natriuretic peptide 110.1. Urine culture from March 21, 2018, showed E. coli of the urine. The patient has been on Rocephin IV q.24 h. Vitamin C added. Continue wound care. Subjectively, the patient has minimal complaints overall, some sore throat. Does complain of dysuria and pain that is "11/10." However, the patient was calm and relaxed with her eyes closed when I entered the room. Per the nursing staff, she stated that she loved Dilaudid. The patient told me that she wanted to [facility]id at the [facility] after discharge. I explained to the patient that they do not give Dilaudid in the [facility]. I have discontinued her Dilaudid and put her on Gill 10 mg per 325 mg 1 tablet p.o. q.6 h. p.r.n. for severe pain. Patient is to follow up with neurology on an outpatient basis p.r.n. and follow up with Dr. Warren with urology in 2 weeks. No major change in physical examination. Currently, there is normal saline infusing at 75 mL an hour. Continue regular diet. Dictated by: Sergio Nascimento, LYSSA ABDULLAHI FERREIRA MD Job#: [id number] CF
[2018-03-26] MEDS: SODIUM CHLORIDE 0.9% 1000ML 1,000 ML IV SCH ×2 (06:10→12:58)
[2018-03-26] MEDS: CEFTRIAXONE SOD 1 GM/NS 50 ML 50 ML IV SCH (09:41)
[2018-03-26] MEDS: OXYBUTYNIN CHLORIDE 5 MG TAB PO SCH ×3 (09:42→22:14)
[2018-03-26] MEDS: PHENAZOPYRIDINE HCL 100 MG TAB PO SCH ×3 (09:42→22:15)
[2018-03-26] MEDS: RIVAROXABAN 20 MG TABLET PO SCH (09:42)
[2018-03-26] MEDS: LORATADINE 10 MG TAB PO SCH (09:42)
[2018-03-26] MEDS: OYST-CAL-D 500MG TABLET PO SCH ×2 (09:42→15:53)
[2018-03-26] MEDS: LAMOTRIGINE 100 MG TAB PO SCH ×2 (09:42→22:15)
[2018-03-26] MEDS: ONDANSETRON HCL INJ 2MG/ML 2ML 2 MG/ML VIAL IV PRN ×3 (09:42→20:21)
[2018-03-26] MEDS: TAMSULOSIN HCL 0.4 MG CAP PO SCH (09:42)
[2018-03-26] MEDS: FLUTICASONE PROPIONATE NASAL SPRAY NS SCH ×2 (09:42→15:53)
[2018-03-26] MEDS: ASCORBIC ACID 500 MG TAB PO SCH ×2 (09:42→15:53)
[2018-03-26] MEDS: RISPERIDONE 0.5 MG TAB PO SCH ×2 (09:42→22:15)
[2018-03-26] MEDS: FAMOTIDINE 20 MG TAB PO SCH ×2 (09:42→15:53)
[2018-03-26] MEDS: TOPIRAMATE 25 MG TAB PO SCH ×2 (09:42→22:16)
[2018-03-26] MEDS: FLUOXETINE HCL 20 MG CAP PO SCH (09:42)
[2018-03-26] MEDS: VENLAFAXINE HCL 75 MG CAPCR PO SCH (09:42)
--- NOTE | 2018-03-26 19:15 | NUR ---
Patient visited in room during nursing rounds. Patient bed bound and extremely weak on all extremities. Patient alert and oriented x2-3. Allevyn covering right and left buttock ulcers (Stage 2 and 1 respectively). Patient having frequent pain on right side of body. Pt aware Dr. Benítez would not order IV pain med. Pt on [place] 10/325mg prn. Patient stated she does not want to be transferred to [facility]. Call henderson within reach. Bed alarm active.
--- NOTE | 2018-03-26 20:00 | NUR ---
Dr. Benítez came to the unit. aware pt requests not to go back to [facility]. Dr. Benítez ordered to consult for help on searching for other nursing homes.
--- NOTE | 2018-03-26 21:00 | NUR ---
Spoke to patient's mother, Daria, and informed her that Dr. Benítez ordered CM consult to help in searching for other nursing homes (aside from [facility]).
[2018-03-26] MEDS: MELATONIN 3 MG TAB PO SCH (22:15)
[2018-03-27] VITALS: BP 99/55
[2018-03-27] MEDS: HYDROCODONE/APAP 10MG-325MG TAB PO PRN (00:15)
[2018-03-27] MEDS: ALBUTEROL/IPRATROPIUM 3 ML NEB NEB SCH ×3 (01:22→13:00)
[2018-03-27 04:00] VITALS: BP 110/64
[2018-03-27 05:27] LABS: BASOPHILS % 0.3 % (0.0-1.0); EOSINOPHILS # (AUTO) 0.7 (0.0-0.4); EOSINOPHILS % 7.8 % (0.0-6.0); HEMATOCRIT 34.5 % (34.2-44.1); HEMOGLOBIN 10.7 g/dL (12.0-16.0); LYMPHOCYTES % 34.5 % (18.0-39.1); MEAN CORPUSCULAR HEMOGLOBIN 28.7 pg (28-32); MEAN CORPUSCULAR VOLUME 92.5 fL (81-99); MONOCYTES # (AUTO) 0.6 (0.2-0.8); MONOCYTES % 6.3 % (4.4-11.3); NEUTROPHILS # (AUTO) 4.5 (2.1-6.9); NEUTROPHILS % 50.8 % (38.7-80.0); PLATELET COUNT 197 x10e3/uL (140-360); RED BLOOD COUNT 3.73 x10e6/uL (3.6-5.1); RED CELL DISTRIBUTION WIDTH 13.8 % (11.7-14.4)
[2018-03-27 05:43] LABS: ANION GAP 10.7 mmol/L (8-16); BLOOD UREA NITROGEN 10 mg/dL (7-26); BUN/CREATININE RATIO 17 (6-25); CALCIUM 8.6 mg/dL (8.4-10.2); CARBON DIOXIDE 19 mmol/L (22-29); CHLORIDE 110 mmol/L (98-107); CREATININE, SERUM 0.59 mg/dL (0.57-1.11); EST GLOMERULAR FILTRATION RATE > 60 ML/MIN (60-); GLUCOSE 91 mg/dL (74-118); POTASSIUM 3.7 mmol/L (3.5-5.1); SODIUM 136 mmol/L (136-145)
[2018-03-27 07:58] VITALS: BP 100/63
[2018-03-27 09:00] VITALS: BP 100/63
[2018-03-27] MEDS: CEFTRIAXONE SOD 1 GM/NS 50 ML 50 ML IV SCH (09:15)
[2018-03-27] MEDS: FLUTICASONE PROPIONATE NASAL SPRAY NS SCH (09:40)
[2018-03-27] MEDS: FLUOXETINE HCL 20 MG CAP PO SCH (09:40)
[2018-03-27] MEDS: TOPIRAMATE 25 MG TAB PO SCH (09:40)
[2018-03-27] MEDS: LORATADINE 10 MG TAB PO SCH (09:40)
[2018-03-27] MEDS: OXYBUTYNIN CHLORIDE 5 MG TAB PO SCH (09:40)
[2018-03-27] MEDS: PHENAZOPYRIDINE HCL 100 MG TAB PO SCH (09:40)
[2018-03-27] MEDS: TAMSULOSIN HCL 0.4 MG CAP PO SCH (09:40)
[2018-03-27] MEDS: ASCORBIC ACID 500 MG TAB PO SCH (09:40)
[2018-03-27] MEDS: RIVAROXABAN 20 MG TABLET PO SCH (09:40)
[2018-03-27] MEDS: FAMOTIDINE 20 MG TAB PO SCH (09:40)
[2018-03-27] MEDS: OYST-CAL-D 500MG TABLET PO SCH (09:40)
[2018-03-27] MEDS: RISPERIDONE 0.5 MG TAB PO SCH (09:40)
[2018-03-27] MEDS: VENLAFAXINE HCL 75 MG CAPCR PO SCH (09:40)
[2018-03-27] MEDS: LAMOTRIGINE 100 MG TAB PO SCH (09:40)
[2018-03-27 11:43] VITALS: BP 105/77
[2018-03-27] MEDS: SCOPOLAMINE 1.5 MG PATCH TD SCH (12:56)
--- NOTE | 2018-03-27 13:11 | NUR ---
pt going to [facility], room 109B report called to [phone]. Dr. Cortes accepting patient at this facility. Report given to Jordan.
--- NOTE | 2018-03-27 15:24 | NUR ---
pt left via stretcher with EMS to [place] in stable condition with all personal belongings. Mother at side.
--- NOTE | 2018-04-15 08:01 | Operative Report ---
DATE OF PROCEDURE: 03/22/2018 SURGEON: Magdaleno Warren MD PREOPERATIVE DIAGNOSES: 1. Right hydronephrosis due to stone. 2. Urinary tract infection. 3. Hematuria. POSTOPERATIVE DIAGNOSIS: Mild cystocele. OPERATION PERFORMED: 1. Cystourethroscopy with bilateral ureteral catheterization and retrograde ureteropyelography (separate procedure performed for the hematuria and urinary tract infections). 2. Interpretation of retrograde ureteropyelography. 3. Supervision of fluoroscopy, no radiologist present. 4. Cystourethroscopy with insertion of right indwelling ureteral stent (separate procedure performed for the hydronephrosis). 5. Pelvic examination under anesthesia. ANESTHESIA: General. COMPLICATIONS: None. CLINICAL SUMMARY: Davdi Campbell is a 32-year-old woman with obstructing nephrolithiasis. She is brought for the above procedures. She and her mother are aware of the risks of bleeding, infection, injury to adjacent structures, need for additional procedures and elected to proceed. OPERATIVE PROCEDURE IN DETAIL: Informed consent was verified. David Campbell was properly identified, taken to the operating room, placed on the cystoscopy table in supine position. Anesthesia was uneventfully begun. The patient was then carefully and gently repositioned in dorsal lithotomy position with all pressure points well padded. Her genitalia were prepared and draped in usual sterile fashion. A cystoscope sheath was inserted in the patient's urethra and the bladder was drained. Panendoscopy revealed no suspicious mucosal lesions, no tumors, no stones, and no diverticula, normally positioned and configured ureteral orifices were identified. Mild erythema was noted. A ureteral catheter was used to cannulate the left ureter and retrograde ureteropyelogram was performed. It was then inserted in the right ureter and retrograde ureteropyelogram was performed. Interpretation of Retrograde Ureteropyelography: Contrast was instilled in a retrograde fashion bilaterally. There were no tumors, no stones, and no diverticula. Unobstructed drainage was observed on the left hand side. The right hand side exhibited a large stone in the kidney and some hydronephrosis. With cystoscopic and fluoroscopic guidance, a right-sided indwelling ureteral stent was then placed. It was curled in the patient's kidneys as well as the patient's bladder. The retaining suture was cut short. The patient's bladder was drained. Pelvic examination revealed a mild cystocele. No rectocele. No abnormal palpable pelvic masses could be appreciated. No suspicious mucosal lesions were identified. The patient was then uneventfully reversed from anesthesia and taken to recovery room in stable condition. Explicit postop instructions were left in the chart. Plan will be to [facility] the [facility] following this hospitalization and bring her back electively for ureteroscopy with laser lithotripsy and stent change. Magdaleno MD PATY Warren/CLARY /[id number]
== END 2018-03-27 15:25 | DRG 661 ==
LOC: ER 01:31 → ERHOLD 06:10 → MED/SURG2 15:57
PROVIDERS: ADMIT Internal Medicine; ATTEND Internal Medicine
PROC: 0T788ZZ Dilation of Bilateral Ureters, Via Natural or Artificial Opening Endoscopic (ICD-10-PCS; principal; 2018-03-22 18:11)
PROC: BT141ZZ Fluoroscopy of Kidneys, Ureters and Bladder using Low Osmolar Contrast (ICD-10-PCS; principal; 2018-03-22 18:11)
PROC: 0T768DZ Dilation of Right Ureter with Intraluminal Device, Via Natural or Artificial Opening Endoscopic (ICD-10-PCS; principal; 2018-03-22 18:11)
DX: N13.2 Hydronephrosis with renal and ureteral calculous obstruction (principal); N39.0 Urinary tract infection, site not specified; N20.0 Calculus of kidney; G35 Multiple sclerosis; F31.9 Bipolar disorder, unspecified; G47.00 Insomnia, unspecified; R25.1 Tremor, unspecified; Z91.19 Patient's noncompliance with other medical treatment and regimen; L89.321 Pressure ulcer of left buttock, stage 1; E83.51 Hypocalcemia; B96.20 Unspecified Escherichia coli [E. coli] as the cause of diseases classified elsewhere; L89.312 Pressure ulcer of right buttock, stage 2; E66.9 Obesity, unspecified; Z68.39 Body mass index [BMI] 39.0-39.9, adult; Z86.718 Personal history of other venous thrombosis and embolism; Z79.01 Long term (current) use of anticoagulants; Z86.711 Personal history of pulmonary embolism; N39.490 Overflow incontinence; G31.84 Mild cognitive impairment of uncertain or unknown etiology; R31.29 Other microscopic hematuria
CPT/HCPCS: 36415; 74176; 74420; 80048; 80053; 81001; 81025; 82150; 82948; 83690; 83735; 83880; 85025; 87086; 87186; 94640; 99285; C1758; C2617; J0696; J1100; J2001; J2250; J2270; J2405; J2550; J2765; J7030

== ENCOUNTER 2018-04-10 07:55 | Observation (INO) | payer OTHER ==
[~2018-04-10] VITALS: Ht 167.6 cm; Wt 101.2 kg
[~2018-04-10 07:55] MED LIST: ACETAMINOPHEN325 M1 PO; ASCORBIC ACID500 MG PO; Albuterol/Ipratropium Nebulize NEB; CHLORASEPTIC177 ML MT; Calcium Carbonate PO; FAMOTIDINE20 MG PO; FLOMAX0.4 MG PO; FLUOXETINE HCL20 MG PO; GUAIFENESI100 MG/5 M; Hydrocodone/Apap 10MG-325MG PO; LACTULOSE20 GM/30 M PO; LAMICTAL100 MG PO; MAALOX MAXIMUM355 ML PO; MELATONIN3 MG PO; MIRALAX17 GM PO; NAPROXEN250 MG PO; OXYBUTYNIN CHLOR5 MG PO; PYRIDIUM100 MG PO; RISPERIDONE0.5 MG PO; TOPIRAMATE25 MG PO; TRANSDERM-SCOP1 EACH TD; ULTRAM 50MG50 MG PO; VENLAFAXINE HCL75 M1 PO; XARELTO20 MG PO; ZOFRAN4 MG PO
[2018-04-10] MEDS ORDERED: SODIUM CHLORIDE 0.9% 1000ML 1,000 ML IV STA (08:18)
--- NOTE | 2018-04-10 08:34 | NUR ---
I spoke w/ Dr Lolis Warren - admit pt to Dr Benítez, hold npo for likely surgery today, IV Cefepime. He does not want any imaging
[2018-04-10] MEDS ORDERED: SODIUM CHLORIDE 0.9% 1000ML 1,000 ML IV SCH (08:47)
[2018-04-10] MEDS ORDERED: HYDROMORPHONE 1MG/1ML INJ IV PRN (09:00)
[2018-04-10] MEDS ORDERED: ONDANSETRON HCL INJ 2MG/ML 2ML 2 MG/ML VIAL IV PRN (09:00)
[2018-04-10] MEDS: HYDROMORPHONE 2MG/ML 2 MG/ML ML IV PRN ×2 (09:34→16:35)
[2018-04-10] MEDS: CEFEPIME 2 GM/NS 0.9% 100 ML 100 ML IV SCH ×2 (09:40→21:58)
[2018-04-10 10:24] LABS: PREGNANCY TEST, URINE NEGATIVE (NEGATIVE)
[2018-04-10 10:29] LABS: BASOPHILS % 0.2 % (0.0-1.0); EOSINOPHILS # (AUTO) 0.4 (0.0-0.4); EOSINOPHILS % 4.5 % (0.0-6.0); HEMATOCRIT 34.8 % (34.2-44.1); HEMOGLOBIN 10.8 g/dL (12.0-16.0); LYMPHOCYTES # (AUTO) 3.2 (1.0-3.2); MEAN CORPUSCULAR HEMOGLOBIN 29.2 pg (28-32); MEAN CORPUSCULAR VOLUME 94.1 fL (81-99); MONOCYTES # (AUTO) 0.5 (0.2-0.8); MONOCYTES % 6.2 % (4.4-11.3); NEUTROPHILS # (AUTO) 4.3 (2.1-6.9); NEUTROPHILS % 50.5 % (38.7-80.0); PLATELET COUNT 228 x10e3/uL (140-360); RED CELL DISTRIBUTION WIDTH 14.6 % (11.7-14.4)
[2018-04-10] MEDS ORDERED: GENTAMICIN 120MG/NS 100ML 100 ML IV STA (10:35)
[2018-04-10 10:42] LABS: CLARITY,URINE CLOUDY (CLEAR); COLOR,URINE BROWN (YELLOW); KETONES,URINE NEGATIVE (NEGATIVE); LEUKOCYTE ESTERASE ,URINE NEGATIVE (NEGATIVE); NITRITE,URINE NEGATIVE (NEGATIVE); PROTEIN,URINE DIPSTICK 2+ (NEGATIVE); URINE UROBILINOGEN 0.2 mg/dL (0.2 - 1)
[2018-04-10 10:43] LABS: BACTERIA,URINE RARE /HPF; BILIRUBIN,URINE 2+ (NEGATIVE); RBC,URINE >50 /HPF (0-5); WBC,URINE (MAN) 0-5 /HPF (0-5)
[2018-04-10 11:15] LABS: ALANINE AMINOTRANSFERASE 24 IU/L (0-55); ALBUMIN 3.7 g/dL (3.5-5.0); ALBUMIN/GLOBULIN RATIO 1.2 (0.8-2.0); ALKALINE PHOSPHATASE 68 IU/L (40-150); ANION GAP 13.1 mmol/L (8-16); BLOOD UREA NITROGEN 15 mg/dL (7-26); BUN/CREATININE RATIO 23 (6-25); CALCIUM 9.2 mg/dL (8.4-10.2); CARBON DIOXIDE 16 mmol/L (22-29); CHLORIDE 111 mmol/L (98-107); CREATININE, SERUM 0.65 mg/dL (0.57-1.11); EST GLOMERULAR FILTRATION RATE > 60 ML/MIN (60-); GLUCOSE 94 mg/dL (74-118); POTASSIUM 4.1 mmol/L (3.5-5.1); SODIUM 136 mmol/L (136-145)
[2018-04-10] MEDS ORDERED: BELLADONNA/OPIUM 30 MG SUPP RC ONE (11:16)
[2018-04-10] MEDS ORDERED: IOPAMIDOL 610MG/1ML 300 MG/ML VIAL IV ONE (11:17)
[2018-04-10 11:20] LABS: INR 0.99
[2018-04-10 11:21] LABS: PARTIAL THROMBOPLASTIN TIME 29.4 seconds (23.8-35.5)
[2018-04-10] MEDS ORDERED: FENTANYL CITRATE/PF 100MCG/2 ML INJ ONE ×2 (12:58→18:44)
[2018-04-10] MEDS ORDERED: BISACODYL 10 MG SUPP PR PRN (13:45)
[2018-04-10] MEDS ORDERED: BELLADONNA/OPIUM 30 MG SUPP RC PRN (13:45)
[2018-04-10] MEDS ORDERED: NALOXONE HCL INJ 0.4 MG/ML AMP IV PRN (13:45)
[2018-04-10] MEDS ORDERED: MORPHINE SULFATE 1 MG/ML 30ML PCA IV PRN (13:45)
[2018-04-10] MEDS ORDERED: DIPHENHYDRAMINE HCL 25 MG CAP PO PRN (13:45)
[2018-04-10] MEDS ORDERED: HYDROMORPHONE 2MG/ML 2 MG/ML ML ONE (14:25)
--- NOTE | 2018-04-10 14:45 | NUR ---
RECEIVED REPORT FROM TYLER IN PACU. AWAITING FOR PT TO ARRIVE TO UNIT
[2018-04-10 15:06] VITALS: BP_SYST 112; BP_DIAS 72; BP_DIAS 91
--- NOTE | 2018-04-10 15:06 | NUR ---
RECEIVED PT TO FLOOR [id number]. WITH HX OF MENTAL RETARDATION. MOTHER IS AT BEDSIDE. PT IS COMPLETE BEDBOUND. UNABLE TO MOVE LOWER EXTREMITIES DUE TO MS. PT IS ON AIR MATRESS AND ON SEDS FOR DVT PRECAUTION. PT HAS A IN TO THE RIGHT FA IV THAT IS PATENT DRY AND INTACT. PT COMPLAINTS OF PAIN UNABLE TO RATE PAIN TO BLADDER SITE. PT HAS A BED SORE X2 TO THE BUTTOCKS AREA. APPLIED ALLIVEN DRESSING PER PROTOCOL. PT RECEIVED PAIN MEDICINE IN PACU. WILL WAIT FOR TIME TO BE DUE AGAIN. AT THIS TIME CALL LIGHT IS AT REACH. BED ALARM IS ON , BED WHEELS LOCKED, INSTRUCTED TO CALL FOR ASSISTANCE IF NEEDED
[2018-04-10] MEDS ORDERED: AL HYDROX PO PRN (15:15)
[2018-04-10] MEDS ORDERED: GUAIFENESIN 200 MG/10 ML UDC PO PRN (15:15)
[2018-04-10] MEDS ORDERED: NON-FORMULARY MEDICATION ([Albuterol/Ipratropium Nebulize] 3 ML) NEB PRN (15:15)
[2018-04-10] MEDS ORDERED: SIMETH PO PRN (15:15)
[2018-04-10] MEDS ORDERED: LACTULOSE SYRUP 20 GM/30 ML UDC PO PRN (15:15)
[2018-04-10] MEDS ORDERED: ACETAMINOPHEN 325 MG TAB PO PRN (15:15)
[2018-04-10] MEDS ORDERED: [UNRECOGNIZED DRUG - OTHER] PO PRN (15:15)
[2018-04-10] MEDS ORDERED: TRAMADOL HCL 50 MG TAB PO PRN (15:15)
[2018-04-10] MEDS ORDERED: NON-FORMULARY MEDICATION ([Hydrocodone/Apap 10MG-325MG] 1 EA) PO PRN (15:15)
[2018-04-10] MEDS ORDERED: CHLORASEPTIC SPRAY 177 ML BTL MM PRN (15:15)
[2018-04-10] MEDS ORDERED: NON-FORMULARY MEDICATION (Ondansetron Hcl* (Zofran*) 4 MG) PO PRN (15:15)
[2018-04-10] MEDS ORDERED: MAG HYDROX PO PRN (15:15)
[2018-04-10 15:30] LABS: % IRON SATURATION 16 % (15-50); IRON 49 ug/dL (50-170); TOTAL IRON BINDING CAPACITY 298 ug/dL (261-478); TRANSFERRIN 213 mg/dL (180-382)
[2018-04-10] MEDS ORDERED: ALBUTEROL/IPRATROPIUM 3 ML NEB INH PRN (16:15)
[2018-04-10] MEDS ORDERED: BISACODYL 10 MG SUPP PR NR (16:30)
[2018-04-10] MEDS ORDERED: HYDROCODONE/APAP 10MG-325MG TAB PO PRN (16:30)
[2018-04-10] MEDS ORDERED: ONDANSETRON HCL 4 MG ORAL DISINTEGRATING TAB PO PRN (16:30)
[2018-04-10] MEDS: FAMOTIDINE 20 MG TAB PO SCH (16:30)
[2018-04-10] MEDS ORDERED: MAGNESIUM/ALUMINUM/SIMETHICONE 30 ML UDC PO PRN (16:30)
[2018-04-10] MEDS: D5.45%NS/KCL 20MEQ 1,000 ML IV SCH (16:35)
[2018-04-10] MEDS ORDERED: ASCORBIC ACID 500 MG TAB PO SCH (17:00)
[2018-04-10] MEDS ORDERED: NON-FORMULARY MEDICATION ([Calcium Carbonate] 500 MG) PO SCH (17:00)
--- NOTE | 2018-04-10 17:00 | NUR ---
CLARIFIED DIET WITH MD POST DUE TO NPO STATUS ORDER ON COMP. STATES PT CAN HAVE REG DIET AT THIS TIME
[2018-04-10] MEDS ORDERED: NORCO 5-325 TA1 EACH PO (17:26)
[2018-04-10] MEDS ORDERED: ROBITUSSIN-COU237 ML PO (17:26)
[2018-04-10] MEDS ORDERED: LORATADINE10 MG PO (17:26)
[2018-04-10] MEDS ORDERED: ASCORBIC ACID500 MG PO (17:26)
[2018-04-10] MEDS ORDERED: FLUTICASONE PRO16 GM NS (17:26)
[2018-04-10] MEDS ORDERED: DOCUSATE SODIU100 MG PO (17:26)
[2018-04-10] MEDS ORDERED: BENADRYL25 M1 PO (17:26)
[2018-04-10] MEDS ORDERED: TYLENOL # 31 EA PO (17:26)
[2018-04-10] MEDS ORDERED: CALCIUM +D & M1 EACH PO (17:26)
--- NOTE | 2018-04-10 17:27 | NUR ---
REVIEWED HOME MEDICATIONS WITH PT FAMILY. A LIST WAS GIVEN FROM HER CURRENT SNF AND ARE NOW UP TO DATE ON REC MEDS
[2018-04-10] MEDS: CALCIUM CARBONATE 500 MG CHEWABLE TABS PO SCH (18:21)
[2018-04-10] MEDS: PHENAZOPYRIDINE HCL 100 MG TAB PO SCH (18:21)
[2018-04-10] MEDS: DOCUSATE SODIUM 100 MG CAP PO SCH (18:21)
[2018-04-10] MEDS: LAMOTRIGINE 100 MG TAB PO SCH (18:21)
[2018-04-10] MEDS: TOPIRAMATE 25 MG TAB PO SCH (18:21)
[2018-04-10] MEDS ORDERED: PROPOFOL IV EMULSION 10 MG/ML 20 ML VIAL ONE (18:39)
[2018-04-10] MEDS ORDERED: LIDOCAINE HCL 2% LOCAL INJ 5 ML SDV VIAL INJ ONE (18:39)
[2018-04-10] MEDS ORDERED: SEVOFLURANE INHAL SOLN 250 ML PEN BTL ONE (18:39)
[2018-04-10] MEDS ORDERED: ONDANSETRON HCL INJ 2MG/ML 2ML 2 MG/ML VIAL ONE (18:39)
[2018-04-10] MEDS ORDERED: MIDAZOLAM HCL 2 MG/2 ML VIAL ONE (18:44)
[2018-04-10] MEDS ORDERED: NON-FORMULARY MEDICATION ([Albuterol/Ipratropium Nebulize] 3 ML) NEB SCH (19:00)
[2018-04-10] MEDS: ALBUTEROL/IPRATROPIUM 3 ML NEB INH SCH (19:50)
[2018-04-10 20:00] VITALS: BP 134/75
[2018-04-10] MEDS: RISPERIDONE 0.5 MG TAB PO SCH (21:58)
[2018-04-10] MEDS: OXYBUTYNIN CHLORIDE 5 MG TAB PO SCH (21:58)
[2018-04-10] MEDS: MELATONIN 3 MG TAB PO SCH (21:58)
[2018-04-11] VITALS (7 sets, daily range): BP systolic 89–117; BP diastolic 53–73
--- NOTE | 2018-04-11 00:16 | NUR ---
REFUSED Q2 TURN
[2018-04-11] MEDS: ALBUTEROL/IPRATROPIUM 3 ML NEB INH SCH ×4 (00:30→21:00)
[2018-04-11] MEDS: D5.45%NS/KCL 20MEQ 1,000 ML IV SCH ×4 (01:38→18:25)
[2018-04-11] MEDS: ONDANSETRON HCL INJ 2MG/ML 2ML 2 MG/ML VIAL IV PRN ×2 (04:16→14:31)
[2018-04-11 06:32] LABS: BASOPHILS % 0.3 % (0.0-1.0); EOSINOPHILS # (AUTO) 0.3 (0.0-0.4); EOSINOPHILS % 3.4 % (0.0-6.0); HEMATOCRIT 31.9 % (34.2-44.1); LYMPHOCYTES # (AUTO) 1.9 (1.0-3.2); LYMPHOCYTES % 25.6 % (18.0-39.1); MEAN CORPUSCULAR HEMOGLOBIN 29.5 pg (28-32); MEAN CORPUSCULAR HGB CONC 31.3 g/dL (31-35); MEAN CORPUSCULAR VOLUME 94.1 fL (81-99); MONOCYTES # (AUTO) 0.6 (0.2-0.8); MONOCYTES % 8.5 % (4.4-11.3); NEUTROPHILS # (AUTO) 4.5 (2.1-6.9); NEUTROPHILS % 61.7 % (38.7-80.0); PLATELET COUNT 193 x10e3/uL (140-360); RED BLOOD COUNT 3.39 x10e6/uL (3.6-5.1); RED CELL DISTRIBUTION WIDTH 14.6 % (11.7-14.4)
[2018-04-11 06:48] LABS: ANION GAP 9.1 mmol/L (8-16); BLOOD UREA NITROGEN 7 mg/dL (7-26); BUN/CREATININE RATIO 13 (6-25); CALCIUM 8.5 mg/dL (8.4-10.2); CARBON DIOXIDE 17 mmol/L (22-29); CHLORIDE 114 mmol/L (98-107); CREATININE, SERUM 0.56 mg/dL (0.57-1.11); EST GLOMERULAR FILTRATION RATE > 60 ML/MIN (60-); GLUCOSE 99 mg/dL (74-118); POTASSIUM 4.1 mmol/L (3.5-5.1); SODIUM 136 mmol/L (136-145)
[2018-04-11 07:26] LABS: FOLATE 8.8 ng/mL (7.0-15.4)
--- NOTE | 2018-04-11 07:37 | NUR ---
Received patient and walking rounds complete. Patient awake at this time no signs of distress. Call light in reach, will continue to monitor.
[2018-04-11] MEDS ORDERED: ACETAMINOPHEN/CODEINE 300MG - 30MG TAB PO PRN (08:30)
[2018-04-11] MEDS ORDERED: SCOPOLAMINE 1.5 MG PATCH TD SCH (09:00)
[2018-04-11] MEDS: DOCUSATE SODIUM 100 MG CAP PO SCH ×2 (09:07→17:02)
[2018-04-11] MEDS: RISPERIDONE 0.5 MG TAB PO SCH ×2 (09:07→21:45)
[2018-04-11] MEDS: CEFEPIME 2 GM/NS 0.9% 100 ML 100 ML IV SCH ×2 (09:07→21:35)
[2018-04-11] MEDS: CALCIUM CARBONATE 500 MG CHEWABLE TABS PO SCH ×2 (09:07→17:02)
[2018-04-11] MEDS: PHENAZOPYRIDINE HCL 100 MG TAB PO SCH ×3 (09:07→17:02)
[2018-04-11] MEDS: LAMOTRIGINE 100 MG TAB PO SCH ×2 (09:07→17:02)
[2018-04-11] MEDS: OXYBUTYNIN CHLORIDE 5 MG TAB PO SCH ×3 (09:07→21:45)
[2018-04-11] MEDS: VENLAFAXINE HCL 75 MG CAPCR PO SCH (09:07)
[2018-04-11] MEDS: FLUOXETINE HCL 20 MG CAP PO SCH (09:07)
[2018-04-11] MEDS: TOPIRAMATE 25 MG TAB PO SCH ×2 (09:07→21:45)
[2018-04-11] MEDS: TAMSULOSIN HCL 0.4 MG CAP PO SCH (09:07)
[2018-04-11] MEDS: FAMOTIDINE 20 MG TAB PO SCH ×2 (09:07→17:02)
--- NOTE | 2018-04-11 09:45 | NUR ---
Patient A/O X3 even respirations on 2LNC. Bowel sounds active, no edema. SCD's in place. Stage 2 pressure ulcer on buttock, wound care consulted. Right FA 20 gauge IV with fluids at 125 mls/hr. Patient needs assistance with ADL'S. Rosenthal in place with dark ez urine. ANIMAL CARE ATTENDANT morphine at bedside. Mother at bedside, call light in reach, will continue to monitor.
--- NOTE | 2018-04-11 15:17 | NUR ---
Discontinued patients CORPORATE TRAVEL MANAGER pump at this time.
--- NOTE | 2018-04-11 15:47 | NUR ---
WOUND CARE CONSULTATION - INITIAL EVALUATION Patient admitted from [facility] to ER for right flank pain.S/P sent placement and fecal disimpaction. HX: MS, Recurrent Kidney Stones, Contractures. Wound care consulted for wounds present on admission to bilateral buttocks. LABS: WBC7.3 HGB10 HCT31.9 ALB3.7 NEUT%61.7 PATIENT VISIT: Sergo 32 y/o f with mother at bedside. Fuad Score 14 Alternating Pressure Air Mattress in place Moderate PUP Active Bilateral heels intact, no pressure ulcers noted. no swelling, no tenderness. Diapered Left Gluteal - Healing - 100% epithelialized wound. Dry Scaly frail appearance Right Gluteal - Oval ulceration with serosanguineous, fluid filled bullae r/t shear friction and pressure. Bilateral Breast folds presents with moisture related linear ulcerations at fold crease. Epithelialization present and appears to be healing well. No redness, no swelling noted. Voices tenderness at site upon touch. Bilateral Groin - moisture related linear ulcerations at fold crease. Epithelialization present and appears to be healing well. No redness, no swelling noted. Does however complain of tenderness at site upon touch. IMPRESSION: Left Gluteal - Healing Stage II Pressure Ulcer - Present On Admission Right Gluteal - Stage II pressure ulcer- Present on Admission. Bilateral Groin and Breast Folds - Moisture related ulcerations Present on Admission RECOMMENDATION: 1. Bilateral Gluteal- Healing Stage II P.U. Present on Admission: - Cleanse areas with NS and 4x4 gauze and Pat Dry Thoroughly. - Apply Venelex Ointment and Cover with Allevyn Foam Sacrum Dressing Daily. 2. Bilateral Groin and Breast Folds - Moisture related ulcerations Present on Admission: - Wash areas with mild soap and water daily - Apply Nystatin Powder q12 and PRN Soiling. 3. Turn and Reposition Every 2 Hours 4. Alternating Pressure Air Mattress 5. Bilateral Heel Protectors. Thank you for consulting with Wound Care. Addendum: 04/11/18 at 1607 by Yazan Vega RN Amended: Links added.
[2018-04-11] MEDS: HYDROMORPHONE 2MG/ML 2 MG/ML ML IV PRN ×2 (17:03→22:25)
[2018-04-11] MEDS: NYSTATIN 15 GM POWDER UD BTL TOP SCH (18:19)
[2018-04-11] MEDS: LACTULOSE SYRUP 20 GM/30 ML UDC PO SCH (18:19)
[2018-04-11] MEDS ORDERED: POLYETHYLENE GLYCOL 3350 17 GM PACK PO SCH (21:00)
[2018-04-11] MEDS: MELATONIN 3 MG TAB PO SCH (21:45)
[2018-04-12] VITALS: BP 103/61
[2018-04-12 04:00] VITALS: BP 111/59
[2018-04-12] MEDS: NYSTATIN 15 GM POWDER UD BTL TOP SCH ×2 (04:20→15:26)
[2018-04-12] MEDS: HYDROMORPHONE 2MG/ML 2 MG/ML ML IV PRN ×3 (04:20→15:54)
[2018-04-12] MEDS: D5.45%NS/KCL 20MEQ 1,000 ML IV SCH ×2 (05:34→13:34)
[2018-04-12] MEDS: LACTULOSE SYRUP 20 GM/30 ML UDC PO SCH ×3 (06:00→12:55)
[2018-04-12 06:11] LABS: BASOPHILS % 0.3 % (0.0-1.0); EOSINOPHILS # (AUTO) 0.4 (0.0-0.4); EOSINOPHILS % 6.5 % (0.0-6.0); HEMATOCRIT 32.9 % (34.2-44.1); LYMPHOCYTES # (AUTO) 2.4 (1.0-3.2); LYMPHOCYTES % 36.3 % (18.0-39.1); MEAN CORPUSCULAR HEMOGLOBIN 29.2 pg (28-32); MEAN CORPUSCULAR HGB CONC 30.4 g/dL (31-35); MEAN CORPUSCULAR VOLUME 95.9 fL (81-99); MONOCYTES # (AUTO) 0.6 (0.2-0.8); MONOCYTES % 9.2 % (4.4-11.3); NEUTROPHILS # (AUTO) 3.1 (2.1-6.9); NEUTROPHILS % 47.4 % (38.7-80.0); PLATELET COUNT 231 x10e3/uL (140-360); RED BLOOD COUNT 3.43 x10e6/uL (3.6-5.1); RED CELL DISTRIBUTION WIDTH 14.6 % (11.7-14.4)
[2018-04-12 06:28] LABS: ANION GAP 7.2 mmol/L (8-16); BLOOD UREA NITROGEN 5 mg/dL (7-26); BUN/CREATININE RATIO 9 (6-25); CALCIUM 9.1 mg/dL (8.4-10.2); CARBON DIOXIDE 20 mmol/L (22-29); CHLORIDE 114 mmol/L (98-107); CREATININE, SERUM 0.57 mg/dL (0.57-1.11); EST GLOMERULAR FILTRATION RATE > 60 ML/MIN (60-); GLUCOSE 97 mg/dL (74-118); POTASSIUM 4.2 mmol/L (3.5-5.1); SODIUM 137 mmol/L (136-145)
--- NOTE | 2018-04-12 06:55 | NUR ---
SPOKE TO DR. POST AT THIS TIME. NEW ORDER RCV TO REMOVE RAM. ALSO SAID PT IS OK DC BACK TO [facility]
[2018-04-12] MEDS: ALBUTEROL/IPRATROPIUM 3 ML NEB INH SCH ×2 (07:00→12:52)
[2018-04-12] MEDS: FAMOTIDINE 20 MG TAB PO SCH (08:30)
[2018-04-12] MEDS: RISPERIDONE 0.5 MG TAB PO SCH (09:00)
[2018-04-12] MEDS ORDERED: BISACODYL 10 MG SUPP PR SCH (09:00)
[2018-04-12] MEDS ORDERED: BALSAM PERU/CASTOR OIL 60 GM OINT...G. TP SCH (09:00)
[2018-04-12 09:16] VITALS: BP 101/55
[2018-04-12] MEDS: PHENAZOPYRIDINE HCL 100 MG TAB PO SCH ×2 (10:00→14:00)
[2018-04-12] MEDS: CALCIUM CARBONATE 500 MG CHEWABLE TABS PO SCH (10:00)
[2018-04-12] MEDS: FLUOXETINE HCL 20 MG CAP PO SCH (10:00)
[2018-04-12] MEDS: VENLAFAXINE HCL 75 MG CAPCR PO SCH (10:00)
[2018-04-12] MEDS: LAMOTRIGINE 100 MG TAB PO SCH (10:00)
[2018-04-12] MEDS: OXYBUTYNIN CHLORIDE 5 MG TAB PO SCH ×2 (10:00→15:26)
[2018-04-12] MEDS: TAMSULOSIN HCL 0.4 MG CAP PO SCH (10:00)
[2018-04-12] MEDS: DOCUSATE SODIUM 100 MG CAP PO SCH (10:00)
[2018-04-12] MEDS: TOPIRAMATE 25 MG TAB PO SCH (10:00)
[2018-04-12] MEDS ORDERED: SODIUM CHLORIDE 0.9% 250ML 250 ML IV ONE (11:00)
[2018-04-12] MEDS: ONDANSETRON HCL INJ 2MG/ML 2ML 2 MG/ML VIAL IV PRN (11:15)
[2018-04-12 11:57] VITALS: BP 101/55
[2018-04-12 12:20] VITALS: BP 105/65
--- NOTE | 2018-04-12 14:45 | NUR ---
REPORT TO GHULAM AT [facility], BRISTLE MACHINE OPERATOR TELEPHONED AMBULANCE, ETA 1 HOUR , NO FAMILY AT SIDE AT THIS TIME, SPOKE WITH MOTHER LIBERTAD EARLIER IN DAY, AWARE THAT PT IS TRANSFERRING BACK TO [facility] TODAY
--- NOTE | 2018-04-12 15:59 | NUR ---
PT MEDICATED FOR 5/10 PAIN PER MD ORDER, PT REFUSED TO HAVE IV REMOVED, STATES " I WANT THE DILAUDID OVER THERE", PT EDUCATED THAT THE DR WILL DECIDE ONCE SHE IS THERE TO WHAT PAIN MEDICATION SHE WILL BE GETTING AND THEY DO NOT GIVE IV DILAUDID, PT STILL REFUSING TO HAVE IV REMOVED, AMBULANCE HERE TO TRANSFER PT TO HOLDEN ROOM 109B, TELEPHONED TO MAKE GHULAM AWARE THAT PT REFUSING TO HAVE IV REMOVED, WHEELED OFF UNIT FOR TRANSFER, NO CHANGE IN CONDITION
[2018-04-12] MEDS ORDERED: FUROSEMIDE INJ 10 MG/ML 2 ML VIAL IV SCH (17:00)
--- NOTE | 2018-04-13 18:23 | Discharge Summary ---
ADMISSION DIAGNOSES: 1. Acute blood loss anemia. 2. Hematuria. 3. Kidney stones. 4. Bipolar. 5. Morbid obesity. 6. Chronic constipation. 7. Multiple sclerosis. 8. Buttock decubitus, stage 2. DISCHARGE DIAGNOSES: 1. Acute blood loss anemia. 2. Hematuria. 3. Kidney stones. 4. Bipolar. 5. Morbid obesity. 6. Chronic constipation. 7. Multiple sclerosis. 8. Buttock decubitus, stage 2. 9. Rule out urinary tract infection, status post right stent placement. HISTORY: The patient has a history of pneumonia, bipolar, depression, tremors, insomnia, kidney stones. The patient has a functional quad, has chronic constipation and sometimes experienced auditory hallucination. SURGICAL HISTORY: Tosillectomy. HOSPITAL COURSE: A 32-year-old female with kidney stones and renal colic and hematuria for the last few days. She resides at [facility]. On admission, the patient's urine culture was negative, blood culture was negative. The patient was taken to have a cystoscopy with right stent placement as well as catheter placement. Hematuria was stable. Hemoglobin on admission was 10.8; on discharge, hemoglobin was 10. Rosenthal was discontinued prior to discharge. The patient will discharge back to [facility] on regular medicine. Vital signs stable. The patient afebrile. The patient's pain will be controlled at [facility] as that appears to be the biggest problem. The patient will follow up with Dr. Warren in about 4 weeks and primary care in 1 to 2 weeks. The patient and mother understand discharge instructions and agreed to plan. Dictated by Estrella Teague NP MD SOBEIDA Doss/MODL /[id number]
--- NOTE | 2018-04-15 11:08 | Operative Report ---
DATE OF PROCEDURE: 04/10/2018 SURGEON: Magdaleno Warren MD PREOPERATIVE DIAGNOSES: 1. Right nephrolithiasis. 2. Right hydronephrosis. 3. Indwelling ureteral stent. 4. Mild cystocele. POSTOPERATIVE DIAGNOSES: OPERATIONS PERFORMED: 1. Cystourethroscopy with complicated removal of right indwelling ureteral stent (separate procedure performed for the diagnosis of the stent was done with a separate scope). 2. Right ureteroscopy with holmium laser lithotripsy and placement of stent (separate procedure performed for the right nephrolithiasis). 3. Urological Services with supervision and interpretation of ureteroscopy. 4. Interpretation of retrograde ureteropyelography. 5. Supervision of fluoroscopy, no radiologist present. 6. Pelvic examination under anesthesia. ANESTHESIA: General. COMPLICATIONS: None. CLINICAL SUMMARY: David Campbell is a 32-year-old woman with an indwelling ureteral stent placed for a large obstructing renal stone. The patient is brought for the above procedure. She and her mother are aware of the risks of bleeding, infection, injury to adjacent structures, need for additional procedures, and elected to proceed. OPERATIVE PROCEDURE IN DETAIL: Informed consent was verified. David Campbell was properly identified, taken to the operating room, placed on the cystoscopy table in supine position. Anesthesia was uneventfully begun. The patient was then carefully and gently repositioned in the dorsal lithotomy position with all pressure points well padded. Her genitalia were prepared and draped in usual sterile fashion. The 22.5-Swedish cystoscope sheath with the obturator in place was atraumatically inserted into the patient's urethra. The urethra was stenotic, but did accommodate this sheath. We drained the bladder. Panendoscopy revealed a stent emerging from the right ureteral orifice and it was somewhat encrusted. A guidewire was then placed alongside the stent and guided to the level of the patient's kidney. The stent was then grasped, completely removed and discarded. A flexible ureteroscope was then placed over the guidewire and guided to the level of the patient's kidney. We identified a large stone burden. We then performed holmium laser lithotripsy and fragmented all visible stones into smaller fragments. There was old blood within the kidney and some debris and visualization was less than ideal. Nevertheless, we pulverized multiple stones into small fragments and then we left the second guidewire in place and placed a stent coiled within the patient's kidney as well as the patient's bladder. The retaining suture was cut short. The patient's bladder was drained with a Rosenthal catheter. Pelvic examination under anesthesia revealed a mild cystocele. No rectocele. No atrophy was noted. No abdominal or palpable pelvic masses could be appreciated. The patient was then uneventfully reversed from the anesthesia and taken to the recovery room in stable condition. There were no complications to the procedure. She tolerated the procedure well. Plans will be to admit the patient postoperatively for pain control and monitoring. Following this, we will discharge the patient back to her [facility] and bring her back to the operating room in several weeks to remove her stent, perform ureteroscopy and hopefully render her stent free and stone free at that time. Magdaleno Warren MD [place]/MODL /[id number]
== END 2018-04-12 16:04 ==
LOC: ER 07:55 → ERHOLD 09:03 → UNDOADMOB 09:03 → OR 11:04 → INTOOBSV 13:36 → PACU V 13:36 → MED/SURG 14:55
PROVIDERS: ADMIT Internal Medicine; ATTEND Internal Medicine
DX: N13.2 Hydronephrosis with renal and ureteral calculous obstruction (principal); N23 Unspecified renal colic; F31.9 Bipolar disorder, unspecified; D62 Acute posthemorrhagic anemia; R31.9 Hematuria, unspecified; E66.01 Morbid (severe) obesity due to excess calories; Z68.33 Body mass index [BMI] 33.0-33.9, adult; K21.9 Gastro-esophageal reflux disease without esophagitis; Z86.711 Personal history of pulmonary embolism; G40.909 Epilepsy, unspecified, not intractable, without status epilepticus; R32 Unspecified urinary incontinence; Z82.49 Family history of ischemic heart disease and other diseases of the circulatory system; Z91.013 Allergy to seafood; Z87.442 Personal history of urinary calculi; Z86.718 Personal history of other venous thrombosis and embolism; Z96.0 Presence of urogenital implants; K59.09 Other constipation; G35 Multiple sclerosis; L89.322 Pressure ulcer of left buttock, stage 2; L89.312 Pressure ulcer of right buttock, stage 2; N81.10 Cystocele, unspecified
CPT/HCPCS: 36415 ×3; 52356; 74420; 80048 ×2; 80053; 81001; 81025; 82607; 82746; 83540; 83605; 84443; 84466; 85025 ×3; 85610; 85730; 87040; 87086; 94640 ×5; 99284; C2617; G0378 ×3; J1170 ×3; J1580; J2001; J2250; J2270; J2405 ×3; J2704; J7030; Q0162; Q9967; C1758

== ENCOUNTER 2018-04-29 07:57 | Inpatient (IN) | payer OTHER ==
[2018-04-29] VITALS (8 sets, daily range): BP systolic 95–109; BP diastolic 51–60
[~2018-04-29] VITALS: Ht 165.1 cm; Wt 105.8 kg
[~2018-04-29 07:57] MED LIST changes: +BENADRYL25 M1 PO; +CALCIUM +D & M1 EACH PO; +DOCUSATE SODIU100 MG PO; +FLUTICASONE PRO16 GM; +LORATADINE10 MG PO; +NORCO 5-325 TA1 EACH PO; +ROBITUSSIN-COU237 ML PO; +TYLENOL # 31 EA PO
--- NOTE | 2018-04-29 08:15 | NUR ---
PATIENT REFUSING ANY MEDICAL TREATMENT TILL HER MOTHER ARRIVES. NOTIFIED HER MOTHER, SHE IS ON HER WAY AFTER STOPPING BY THE NURSING FACILITY TO RELATIONSHIP B[employer]ER ITEMS FOR HER
--- NOTE | 2018-04-29 08:38 | NUR ---
MOTHER ARRIVED, SHE WILL NOT ALLOW US TO COMPLETE ORDERED TREATMENTS
[2018-04-29] MEDS ORDERED: KETOROLAC TROMETHAMINE 30 MG/ML VIAL IV STA (08:46)
[2018-04-29] MEDS ORDERED: ONDANSETRON HCL INJ 2MG/ML 2ML 2 MG/ML VIAL IV STA (08:46)
[2018-04-29 08:57] LABS: BASOPHILS % 0.4 % (0.0-1.0); EOSINOPHILS # (AUTO) 0.2 (0.0-0.4); EOSINOPHILS % 2.2 % (0.0-6.0); HEMATOCRIT 36.6 % (34.2-44.1); HEMOGLOBIN 11.7 g/dL (12.0-16.0); LYMPHOCYTES # (AUTO) 3.5 (1.0-3.2); LYMPHOCYTES % 35.2 % (18.0-39.1); MEAN CORPUSCULAR HEMOGLOBIN 29.3 pg (28-32); MEAN CORPUSCULAR VOLUME 91.7 fL (81-99); MONOCYTES # (AUTO) 0.8 (0.2-0.8); MONOCYTES % 8.2 % (4.4-11.3); NEUTROPHILS # (AUTO) 5.4 (2.1-6.9); NEUTROPHILS % 53.4 % (38.7-80.0); PLATELET COUNT 296 x10e3/uL (140-360); RED BLOOD COUNT 3.99 x10e6/uL (3.6-5.1); RED CELL DISTRIBUTION WIDTH 13.3 % (11.7-14.4)
[2018-04-29] MEDS ORDERED: SODIUM CHLORIDE 0.9% 1000ML 1,000 ML IV SCH (09:00)
[2018-04-29 09:16] LABS: ALANINE AMINOTRANSFERASE 24 IU/L (0-55); ALBUMIN 3.4 g/dL (3.5-5.0); ALBUMIN/GLOBULIN RATIO 0.7 (0.8-2.0); ALKALINE PHOSPHATASE 62 IU/L (40-150); ANION GAP 11.9 mmol/L (8-16); BLOOD UREA NITROGEN 11 mg/dL (7-26); BUN/CREATININE RATIO 14 (6-25); CALCIUM 8.8 mg/dL (8.4-10.2); CARBON DIOXIDE 20 mmol/L (22-29); CHLORIDE 108 mmol/L (98-107); CREATININE, SERUM 0.77 mg/dL (0.57-1.11); EST GLOMERULAR FILTRATION RATE > 60 ML/MIN (60-); GLUCOSE 109 mg/dL (74-118); LIPASE 124 U/L (8-78); POTASSIUM 4.9 mmol/L (3.5-5.1); SODIUM 135 mmol/L (136-145)
[2018-04-29 09:21] LABS: PREGNANCY TEST, URINE NEGATIVE (NEGATIVE)
[2018-04-29 09:25] LABS: CLARITY,URINE CLOUDY (CLEAR); COLOR,URINE BROWN (YELLOW)
[2018-04-29 09:46] LABS: AMORPHOUS SEDIMENT,URINE FEW (FEW); BACTERIA,URINE MANY /HPF; EPITHELIAL CELLS,URINE FEW /LPF; RBC,URINE >50 /HPF (0-5); WBC,URINE (MAN) >50 /HPF (0-5)
[2018-04-29 09:47] LABS: BILIRUBIN,URINE 2+ (NEGATIVE); KETONES,URINE TRACE (NEGATIVE); LEUKOCYTE ESTERASE ,URINE 1+ (NEGATIVE); NITRITE,URINE POSITIVE (NEGATIVE); PROTEIN,URINE DIPSTICK 3+ (NEGATIVE); URINE UROBILINOGEN 4 mg/dL (0.2 - 1)
[2018-04-29] MEDS ORDERED: CEFTRIAXONE SOD 1 GM/NS 50 ML 50 ML IV SCH (10:15)
--- NOTE | 2018-04-29 11:14 | Diagnostic Imaging Report ---
EXAM: CT ABDOMEN AND PELVIS without IV CONTRAST DATE: 04/29/2018 Time stamp on Exam: 9:41 AM INDICATION: Right flank pain COMPARISON: 03/21/2018 TECHNIQUE: The abdomen and pelvis were scanned using a multidetector helical scanner. Coronal and sagittal reformations were obtained. Renal stone protocol performed. CTDIvol has been reviewed. It is below the limits set by the Radiation Protocol Committee (RPC). Appropriate CT dose reduction techniques were utilized. IV Contrast: None Oral Contrast: None Radiation Dose: Total DLP 842.80 mGy*cm Estimated effective dose: DLP x 0.015 x size factor FINDINGS: LOWER THORAX: No consolidations with a calcified bilateral lower lobe granulomas. LIVER: No masses BILIARY: The gallbladder is absent. No ductal dilatation. SPLEEN: No masses PANCREAS: No masses ADRENALS: No nodules KIDNEYS: Right double-J ureteral stent appropriate in location. There is mild central pelvic dilatation that is more prominent than when compared to the prior study-this suggests that the stent may be clogged. Several small upper pole right renal stones with the largest measuring 5.7 mm. The stone size and burden compared to the prior study is smaller. GI TRACT: No distention, wall thickening or evidence of obstruction. VESSELS: Unremarkable PERITONEUM/RETROPERITONEUM: No free air or fluid LYMPH NODES: No lymphadenopathy REPRODUCTIVE ORGANS: IUD within the uterus. BLADDER: Unremarkable SOFT TISSUES: Unremarkable BONES: No suspicious bone lesions. Central compression deformity of the superior endplate of L5. IMPRESSION: 1. Right double-J ureteral stent in appropriate position. Mild renal pelvic and calyceal dilatation suggests that the stent may be clogged. 2. Small right upper pole renal stones as described above. Signed by: Dr. Sammy Zhu DO on 04/29/2018 11:11 AM
[2018-04-29] MEDS ORDERED: CEFEPIME 1GM/NS 0.9% 50 ML 50 ML IV STA (11:36)
--- NOTE | 2018-04-29 11:36 | NUR ---
DR. MYLES SPOKE WITH FAMILY UPDATING THEM ON PATIENTS STATUS.
[2018-04-29] MEDS: SODIUM CHLORIDE 0.9% 1000ML 1,000 ML IV SCH ×2 (11:38→19:56)
[2018-04-29] MEDS ORDERED: MORPHINE SULFATE 2 MG/ML SYR 1ML IV PRN (11:45)
[2018-04-29] MEDS: CEFTRIAXONE SOD 1 GM/NS 50 ML 50 ML IV SCH ×3 (11:45→23:30)
--- NOTE | 2018-04-29 12:00 | NUR ---
PT RECEIVED IN [facility]RETCHER FROM ER. PT WITH MS A&O X 1. PT MOTHER AT BEDSIDE. PT CAME WITH STAGE 3 PRESSURE ULCER ON THE LOWER BACK, STAGE 2 ON BILATERAL BREAST FOLDS, GROINS BILATERALLY, REDNESS ON URINARY MEATUS BILATERALLY. SAFETY AND FALL PRECAUTIONS MAINTAINED. CALL [facility] WITH IN REACH. BED ALARM IS ON.PT DENIED NEEDS AT THIS TIME. INSTRUCTED PT TO CALL WHEN NEEDED
--- NOTE | 2018-04-29 16:30 | NUR ---
CALLED BETTY AT [facility] OFFICE. SHE VERIFIED THAT DR. GENNARO BUTTS CALLED AND SPOKE TO DR. POST ON CONSULTATION.
[2018-04-29] MEDS: ONDANSETRON HCL INJ 2MG/ML 2ML 2 MG/ML VIAL IV PRN (19:56)
[2018-04-29] MEDS: MORPHINE SULFATE INJ 4 MG/ML INJ 1ML IV PRN (19:56)
[2018-04-30] VITALS (8 sets, daily range): BP systolic 103–129; BP diastolic 56–74
[2018-04-30] MEDS: ONDANSETRON HCL INJ 2MG/ML 2ML 2 MG/ML VIAL IV PRN ×4 (01:12→18:45)
[2018-04-30] MEDS: MORPHINE SULFATE INJ 4 MG/ML INJ 1ML IV PRN ×5 (01:12→18:45)
[2018-04-30] MEDS: SODIUM CHLORIDE 0.9% 1000ML 1,000 ML IV SCH ×2 (05:18→11:38)
--- NOTE | 2018-04-30 07:00 | NUR ---
SHIFT REPORT RECEIVED FROM NIGHT RN WHILE ROUNDING AT BEDSIDE. PT DENIES NEEDS AT THIS TIME.
[2018-04-30] MEDS ORDERED: DEXTROMETHORPHAN PO PRN (08:30)
[2018-04-30] MEDS ORDERED: DIPHENHYDRAMINE HCL 25 MG CAP PO PRN (08:30)
[2018-04-30] MEDS ORDERED: [UNRECOGNIZED DRUG - OTHER] PO PRN (08:30)
[2018-04-30] MEDS ORDERED: ALBUTEROL/IPRATROPIUM 3 ML NEB NEB PRN (08:30)
[2018-04-30] MEDS ORDERED: HYDRALAZINE HCL 20 MG/ML VIAL IV PRN (08:30)
[2018-04-30] MEDS ORDERED: GUAIFENESIN PO PRN (08:30)
--- NOTE | 2018-04-30 09:28 | NUR ---
AFTER BLADDER SCAN, PT IS SHOW CONSISTANT RESIDUAL OF ONLY 35 TO 64 ML. THIS RESULT SHOWN TO DR. POST AND TOLD TO OMAR. PT WILL STILL BE NPO PER OMAR. DR. POST INFORMED PT THAT WHEN INFECTION UNDER CONTROL, HE WILL REMOVE STENTS.
[2018-04-30] MEDS ORDERED: BISACODYL 10 MG SUPP PR NR (10:00)
[2018-04-30] MEDS ORDERED: GUAIFENESIN/DEXTROMETHORPHAN LIQD 5 ML UDC PO PRN (10:00)
[2018-04-30] MEDS: TOPIRAMATE 25 MG TAB PO SCH ×2 (10:41→21:33)
[2018-04-30] MEDS: LORATADINE 10 MG TAB PO SCH (10:43)
[2018-04-30] MEDS: DOCUSATE SODIUM 100 MG CAP PO SCH ×2 (10:44→17:02)
[2018-04-30] MEDS: OXYBUTYNIN CHLORIDE 5 MG TAB PO SCH ×3 (10:46→21:33)
[2018-04-30] MEDS: VENLAFAXINE HCL 75 MG CAPCR PO SCH (10:47)
[2018-04-30] MEDS: TAMSULOSIN HCL 0.4 MG CAP PO SCH (10:49)
[2018-04-30] MEDS: LAMOTRIGINE 100 MG TAB PO SCH ×2 (10:51→17:02)
[2018-04-30] MEDS: FLUOXETINE HCL 20 MG CAP PO SCH (10:52)
[2018-04-30] MEDS: PHENAZOPYRIDINE HCL 100 MG TAB PO SCH ×3 (10:53→21:34)
[2018-04-30] MEDS: NYSTATIN 15 GM POWDER UD BTL TOP SCH ×3 (10:59→17:00)
[2018-04-30] MEDS: ASCORBIC ACID 500 MG TAB PO SCH ×3 (10:59→21:34)
[2018-04-30] MEDS: RISPERIDONE 0.5 MG TAB PO SCH ×2 (11:00→21:34)
[2018-04-30] MEDS: FLUTICASONE PROPIONATE NASAL SPRAY NS SCH ×2 (11:02→17:00)
[2018-04-30] MEDS: ALBUTEROL/IPRATROPIUM 3 ML NEB NEB SCH ×2 (13:00→19:00)
--- NOTE | 2018-04-30 13:00 | NUR ---
PT REFUSED SUPPOSITORY. PT BARLEY LET THIS NURSE AND TECH CHANGE AND CLEAN HER. WILL TRY AGAIN LATER AND IF NOT, WILL GIVE LACTULOSE.
[2018-04-30] MEDS ORDERED: AMPICILLIN SOD 1 GM/NS 50ML 1 G in AMPICILLIN SOD 1 GM/NS 50ML 50 ML IV SCH (14:00)
--- NOTE | 2018-04-30 14:02 | NUR ---
SPOKE WITH PT AND MOTHER, PT WOULD LIKE TO GO HOME WITH MOTHER, MOTHER STATES SHE IS AWARE THAT HER DAUGHTER IS NONCOMPLIANT BUT STILL WANTS HER TO GET GOOD CARE. SHE STATES SHE IS HAPPY WITH THE NURSES BUT IS CONCERNED ABOUT THE [employer] AND IS NOT SURE IF THE ADMINISTRATION STEAM THERE IS DOING WHAT THEY NEED TO. SHE STATES SHE WILL TAKE HER WINNIE WITH HER IF SHE GETS 24 HOUR CARE AND ASSISTANCE IN THE HOME DUE TO HER WORKING. EDUCATED ABOUT THE DIFFERENT PROGRAMS THAT ASSIST WITH THAT PROCESS AND THAT THE PROCESS TAKE FROM 90 TO 120 DAYS. PT MOTHER STATES HER DAUGHTER WILL GO BACK TO [place] AND SHE WILL BEGIN THE PROCESS TO HER HER HOME BUT WILL CONTACT THE INSURANCE COMPANY AND OTHER ORGANIZATIONS SUCH [employer] OR [employer] FOLLOWS THE PERSON TO GET HER PLACED BACK IN THE COMMUNITY. NO OTHER CONCERNS AT THIS TIME.
[2018-04-30] MEDS: AMPICILLIN SOD 1 GM/NS 50ML 50 ML IV SCH ×2 (14:23→21:34)
--- NOTE | 2018-04-30 14:29 | NUR ---
WOUND CARE CONSULTATION: THIS IS A 32 YEAR OLD FEMALE PATIENT ADMITTED TO [facility] FOR INFECTED RENAL STENT AND POSSIBLE OBSTRUCTED RENAL STENT. PATIENT HAS A HISTORY OF MULTIPLE SCLEROSIS AND IS BEDBOUND STATUS. HEAD TO TOE SKIN ASSESSMENT PREFORMED. PATIENT HAS A STAGE 2 PRESSURE ULCER TO BILATERAL BUTTOCKS MEASURING 4.5X 8.2X0.1CM, MULTIPLE SMALL STABLE ESCHARS NOTED TO WOUND BED AND PINK GRANULATION NOTED TO 95% OF WOUND. PATIENT HAS DENUDED AREAS OF SKIN NOTED TO BILATERAL BREAST FOLDS AND ABDOMINAL FOLDS. LABS: WBC10.01 ALB3.4 GLUCOSE 109 BLOOD CULTURE = PENDING URINE CULTURE = + FOR STREPTOCOCCUS SPECIES MEDICATIONS: CEFTRIAXONE AMPICILLIN RECOMMENDATION: -CONTINUE ALTERNATING PRESSURE RELIEF MATTRESS. -APPLY BILATERAL HEEL PROTECTORS WITH PILLOW SUSPENSION. -TURN EVERY 2 HOURS AND PRN. -NURSING TO CLEAN STAGE 2 PRESSURE ULCER TO BILATERAL BUTTOCKS WITH NORMAL SALINE, PAT DRY, APPLY VENELEX THEN COVER WITH ALLEVYN FOAM DRESSING; CHANGE DAILY AND PRN. -NURSING TO APPLY NYSTATIN POWDER MIXED WITH VENELEX OINTMENT TO BILATERAL BREAST FOLDS AND ABDOMINAL FOLDS BID AND PRN. THANK YOU FOR THIS WOUND CARE CONSULT. Addendum: 04/30/18 at 1442 by Delia Guerrero RN Amended: Links added.
[2018-04-30] MEDS: FAMOTIDINE 20 MG TAB PO SCH (17:00)
[2018-04-30] MEDS: OYST-CAL-D 500MG TABLET PO SCH (17:01)
[2018-04-30] MEDS: LACTULOSE SYRUP 20 GM/30 ML UDC PO PRN (18:40)
[2018-04-30] MEDS: MELATONIN 3 MG TAB PO SCH (21:34)
[2018-05-01] VITALS (8 sets, daily range): BP systolic 99–118; BP diastolic 55–70
[2018-05-01] MEDS: ALBUTEROL/IPRATROPIUM 3 ML NEB NEB SCH ×4 (01:40→19:47)
[2018-05-01] MEDS: ONDANSETRON HCL INJ 2MG/ML 2ML 2 MG/ML VIAL IV PRN ×5 (02:15→21:07)
[2018-05-01] MEDS: MORPHINE SULFATE INJ 4 MG/ML INJ 1ML IV PRN ×5 (02:15→21:06)
[2018-05-01] MEDS: SODIUM CHLORIDE 0.9% 1000ML 1,000 ML IV SCH (02:15)
[2018-05-01] MEDS: AMPICILLIN SOD 1 GM/NS 50ML 50 ML IV SCH ×3 (05:00→22:00)
[2018-05-01 05:58] LABS: BASOPHILS % 0.4 % (0.0-1.0); EOSINOPHILS # (AUTO) 0.1 (0.0-0.4); EOSINOPHILS % 1.5 % (0.0-6.0); HEMATOCRIT 30.9 % (34.2-44.1); HEMOGLOBIN 9.6 g/dL (12.0-16.0); LYMPHOCYTES % 23.1 % (18.0-39.1); MEAN CORPUSCULAR HEMOGLOBIN 29.2 pg (28-32); MEAN CORPUSCULAR HGB CONC 31.1 g/dL (31-35); MEAN CORPUSCULAR VOLUME 93.9 fL (81-99); MONOCYTES # (AUTO) 0.8 (0.2-0.8); MONOCYTES % 9.1 % (4.4-11.3); NEUTROPHILS # (AUTO) 5.6 (2.1-6.9); NEUTROPHILS % 65.5 % (38.7-80.0); PLATELET COUNT 231 x10e3/uL (140-360); RED BLOOD COUNT 3.29 x10e6/uL (3.6-5.1); RED CELL DISTRIBUTION WIDTH 13.1 % (11.7-14.4)
--- NOTE | 2018-05-01 07:00 | NUR ---
Received patient mid fowlers position, side rails upx3, call light within reach, mother at bedside. Resting with eyes closed. Arousable to verbal stimuli. Respirations even and unlabored. Will continue to monitor.
[2018-05-01 07:46] LABS: ALANINE AMINOTRANSFERASE 14 IU/L (0-55); ALBUMIN 2.7 g/dL (3.5-5.0); ALKALINE PHOSPHATASE 67 IU/L (40-150); ANION GAP 10.5 mmol/L (8-16); BILIRUBIN,DIRECT 0.1 mg/dL (0.0-0.5); BLOOD UREA NITROGEN 12 mg/dL (7-26); BUN/CREATININE RATIO 16 (6-25); CALCIUM 8.4 mg/dL (8.4-10.2); CARBON DIOXIDE 17 mmol/L (22-29); CHLORIDE 112 mmol/L (98-107); CREATININE, SERUM 0.74 mg/dL (0.57-1.11); EST GLOMERULAR FILTRATION RATE > 60 ML/MIN (60-); GLUCOSE 91 mg/dL (74-118); LIPASE 40 U/L (8-78); MAGNESIUM 1.9 MG/DL (1.3-2.1); POTASSIUM 3.5 mmol/L (3.5-5.1); SODIUM 136 mmol/L (136-145)
[2018-05-01] MEDS: LORATADINE 10 MG TAB PO SCH (09:25)
[2018-05-01] MEDS: FLUOXETINE HCL 20 MG CAP PO SCH (09:25)
[2018-05-01] MEDS: FLUTICASONE PROPIONATE NASAL SPRAY NS SCH ×2 (09:25→16:27)
[2018-05-01] MEDS: LAMOTRIGINE 100 MG TAB PO SCH ×2 (09:25→16:27)
[2018-05-01] MEDS: OXYBUTYNIN CHLORIDE 5 MG TAB PO SCH ×3 (09:25→21:10)
[2018-05-01] MEDS: PHENAZOPYRIDINE HCL 100 MG TAB PO SCH ×3 (09:25→21:10)
[2018-05-01] MEDS: TAMSULOSIN HCL 0.4 MG CAP PO SCH (09:25)
[2018-05-01] MEDS: FAMOTIDINE 20 MG TAB PO SCH ×2 (09:25→16:27)
[2018-05-01] MEDS: DOCUSATE SODIUM 100 MG CAP PO SCH ×2 (09:25→16:27)
[2018-05-01] MEDS: VENLAFAXINE HCL 75 MG CAPCR PO SCH (09:25)
[2018-05-01] MEDS: OYST-CAL-D 500MG TABLET PO SCH ×2 (09:25→16:27)
[2018-05-01] MEDS: TOPIRAMATE 25 MG TAB PO SCH ×2 (09:25→21:10)
[2018-05-01] MEDS: RISPERIDONE 0.5 MG TAB PO SCH ×2 (09:26→21:10)
[2018-05-01] MEDS: ASCORBIC ACID 500 MG TAB PO SCH ×3 (09:26→21:10)
[2018-05-01] MEDS: ACETAMINOPHEN 325 MG TAB PO PRN (09:26)
[2018-05-01] MEDS: NYSTATIN 15 GM POWDER UD BTL TOP SCH ×4 (09:26→16:07)
[2018-05-01] MEDS: BALSAM PERU/CASTOR OIL 5 GM OINT...G. TP SCH (09:26)
[2018-05-01] MEDS ORDERED: CITRATE OF MAGNESIA 300ML BOTTLE PO ONE (10:00)
--- NOTE | 2018-05-01 14:46 | NUR ---
PT HAVING PROCEDURE ON SUNDAY SO HOPE TO RETURN TO SNF ON SUNDAY AFTER PROCEDURE, WILL FAX CLINICALS WHEN CLEARED
--- NOTE | 2018-05-01 15:32 | NUR ---
CASE MANAGEMENT INITIAL ASSESSMENT Distribution Field Technician to bedside to discuss plan of care with patient/family. CM/SW role and care transitions discussed. Anticipated discharge plan discussed along with duration of care. CM/SW discussed patients right to make decisions in care. CM/SW work hours given. Patient lives: HOME WITH MOTHER IN 1 STORY HOME BUT CAME FROM NURSING HOME FACILITY Admit/Transfer: ED Hospital/ER visits since last admit: LAST VISIT WAS APR 10, 2018 POA/Emergency contact: Herbert Campbell:[phone] (cell), (work) Current/Previous Home Health: NONE PCP/Follow-up Care: NONE Current/Previous DME: wheelchair, nebulizer Medications (referring to index hospitalization or the first time you were in the hospital) a. Were changes made in your medications when you were in the hospital on [date of index hospitalization]? n/a b. Did you understand the changes? n/a c. Were you able to obtain your new medications right away? n/a d. Were you able to take your medications like the doctor wanted you to? n/a e. Did the hospital give you an accurate, easy to understand list of medications when you left? n/a Scale of 1-10 how comfortable does patient feel with disease management in outpatient setting: Other Services: none Employment Status: unemployed Areas of Concerns: renal calculus, pyelonephritis Referral Needs: none, will return to [place] on discharge Education Needs: medical management IMM/GOMEZ given and signed (if applicable): n/a Goal for discharge: RETURN TO [facility]. CM/SW left business card at the bedside with contact information. Name and number was also written on the patients whiteboard. Patient verbalized understanding of discussion. CM will follow-up with ongoing discharge and transition of care needs.
--- NOTE | 2018-05-01 18:31 | NUR ---
Resting in bed. No s/s of acute distress noted. Report to be given to oncoming nurse.
--- NOTE | 2018-05-01 19:24 | NUR ---
Patient received lying in bed. AAO x 3. No complaints of pain. No signs of respiratory distress. Bed locked and in lowest position. Bed rails up x 2. Patient instructed to call for assistance when needed. Call light within reach.
[2018-05-01] MEDS: MELATONIN 3 MG TAB PO SCH (21:10)
[2018-05-02] VITALS (7 sets, daily range): BP systolic 109–127; BP diastolic 70–86
[2018-05-02] MEDS: AMPICILLIN SOD 1 GM/NS 50ML 50 ML IV SCH ×3 (05:25→22:00)
[2018-05-02] MEDS: ALBUTEROL/IPRATROPIUM 3 ML NEB NEB SCH ×4 (07:00→20:22)
[2018-05-02] MEDS: OYST-CAL-D 500MG TABLET PO SCH ×2 (09:40→16:03)
[2018-05-02] MEDS: VENLAFAXINE HCL 75 MG CAPCR PO SCH (09:40)
[2018-05-02] MEDS: FLUTICASONE PROPIONATE NASAL SPRAY NS SCH ×2 (09:40→16:03)
[2018-05-02] MEDS: TOPIRAMATE 25 MG TAB PO SCH ×2 (09:40→20:44)
[2018-05-02] MEDS: BALSAM PERU/CASTOR OIL 5 GM OINT...G. TP SCH (09:40)
[2018-05-02] MEDS: OXYBUTYNIN CHLORIDE 5 MG TAB PO SCH ×3 (09:40→20:44)
[2018-05-02] MEDS: FAMOTIDINE 20 MG TAB PO SCH ×2 (09:40→16:03)
[2018-05-02] MEDS: MORPHINE SULFATE INJ 4 MG/ML INJ 1ML IV PRN ×3 (09:40→21:09)
[2018-05-02] MEDS: LORATADINE 10 MG TAB PO SCH (09:40)
[2018-05-02] MEDS: ASCORBIC ACID 500 MG TAB PO SCH ×3 (09:40→20:44)
[2018-05-02] MEDS: TAMSULOSIN HCL 0.4 MG CAP PO SCH (09:40)
[2018-05-02] MEDS: NYSTATIN 15 GM POWDER UD BTL TOP SCH ×4 (09:40→16:03)
[2018-05-02] MEDS: PHENAZOPYRIDINE HCL 100 MG TAB PO SCH ×3 (09:40→20:44)
[2018-05-02] MEDS: ONDANSETRON HCL INJ 2MG/ML 2ML 2 MG/ML VIAL IV PRN ×3 (09:40→21:09)
[2018-05-02] MEDS: FLUOXETINE HCL 20 MG CAP PO SCH (09:40)
[2018-05-02] MEDS: RISPERIDONE 0.5 MG TAB PO SCH ×2 (09:40→20:44)
[2018-05-02] MEDS: DOCUSATE SODIUM 100 MG CAP PO SCH ×3 (09:40→17:00)
[2018-05-02] MEDS: LAMOTRIGINE 100 MG TAB PO SCH ×2 (09:40→16:03)
--- NOTE | 2018-05-02 15:31 | NUR ---
Nutrition Intervention Note RD Recommendation(s) for Physician: -Advance to regular diet as medically appropriate -Rec MVi w/minerals and vitamin C for wound healing -Rec Suraj BID to promote wound healing when PO is feasible Plan of Care: RD following, monitoring for tolerance and adequacy, ONS rec Nutrition reason for involvement: Diagnosis Stage II pressure ulcer RD Assessment 05/02 Chart reviewed. 32yo F, who was admitted for infected renal stent. 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 Pt denied chewing/swallowing problems and nausea/vomiting. Pt was asking for more foods. Discussed menu options with pt. Suraj was recommended to increase protein intake for healing of her pressure ulcer. Will cont to monitor. Please consult as needed. Principal Problems/Diagnoses: infected renal stent and possible obstructed renal stent PMH: Multiple sclerosis, bedbound GI: abdomen soft, non-tender, large, round, flatus present Skin: stage II pressure ulcer on bilateral buttocks, per wound care. Labs: (05/02) reviewed Meds: oscal, pepcid, colace, vitamin C, zofran Ht: 65in Wt: 220.5l b BMI: 36.7kg/m2 IBW: 125lb Malnutrition Evaluation (05/02) The patient does not meet criteria for a specified degree of malnutrition at this time. Will re-evaluate at follow-up as appropriate. Nutrition Prescription (Diet Order): Regular diet Estimated Nutritional Needs: Calories: 1254 1425kcal(22-25kcal/kg/d) Weight used: IBW Protein: 86 143g(1.5-2.5g/kg/d) Weight used: IBW Diet Adequacy: Meeting calorie needs, Not meeting protein needs Diet Education Needs Assessment: Diet education not indicated. Nutrition Care Level: low Nutrition Diagnosis: Increased protein needs related to altered skin integrity as evidenced by stage II pressure wound. Goal: Patient will meet 75-100% of estimated needs by follow up Progress: Progressing Interventions: General healthful diet, Commercial food, Composition, Multivitamin/mineral supplement therapy Monitoring/Evaluation: Total energy intake, Total protein intake, diet, supplement, Weight change Signed: Randi Garibay, MS, RD, LD
[2018-05-02] MEDS ORDERED: SODIUM CHLORIDE 0.9% 250ML 250 ML ONE (15:36)
--- NOTE | 2018-05-02 19:34 | NUR ---
Report given to oncoming nurse of patient's status. NO s/s of acute distress noted.
--- NOTE | 2018-05-02 19:38 | NUR ---
Patient received lying in bed. Mother at bedside. AAO x 3. Patient had no complaints of pain. Respirations even and non-labored. Bed locked and in lowest position. Bed rails up x 2. Patient instructed to call for assistance when needed. Call light within reach.
[2018-05-02] MEDS: MELATONIN 3 MG TAB PO SCH (20:44)
[2018-05-03] VITALS (7 sets, daily range): BP systolic 93–127; BP diastolic 56–81
[2018-05-03] MEDS: ALBUTEROL/IPRATROPIUM 3 ML NEB NEB SCH ×4 (01:00→16:49)
[2018-05-03] MEDS: ONDANSETRON HCL INJ 2MG/ML 2ML 2 MG/ML VIAL IV PRN ×2 (05:56→17:27)
[2018-05-03] MEDS: MORPHINE SULFATE INJ 4 MG/ML INJ 1ML IV PRN ×2 (05:56→17:27)
[2018-05-03] MEDS: AMPICILLIN SOD 1 GM/NS 50ML 50 ML IV SCH ×4 (05:59→22:00)
[2018-05-03] MEDS: FAMOTIDINE 20 MG TAB PO SCH ×2 (07:30→16:09)
[2018-05-03] MEDS: FLUTICASONE PROPIONATE NASAL SPRAY NS SCH ×2 (08:26→16:09)
[2018-05-03] MEDS: TOPIRAMATE 25 MG TAB PO SCH ×2 (08:26→22:08)
[2018-05-03] MEDS: DOCUSATE SODIUM 100 MG CAP PO SCH ×2 (08:26→16:09)
[2018-05-03] MEDS: VENLAFAXINE HCL 75 MG CAPCR PO SCH (08:26)
[2018-05-03] MEDS: TAMSULOSIN HCL 0.4 MG CAP PO SCH (08:26)
[2018-05-03] MEDS: OXYBUTYNIN CHLORIDE 5 MG TAB PO SCH ×3 (08:26→22:08)
[2018-05-03] MEDS: LORATADINE 10 MG TAB PO SCH (08:26)
[2018-05-03] MEDS: NYSTATIN 15 GM POWDER UD BTL TOP SCH ×4 (08:27→16:09)
[2018-05-03] MEDS: RISPERIDONE 0.5 MG TAB PO SCH ×2 (08:27→22:08)
[2018-05-03] MEDS: LAMOTRIGINE 100 MG TAB PO SCH ×2 (08:27→16:09)
[2018-05-03] MEDS: ASCORBIC ACID 500 MG TAB PO SCH ×3 (08:27→22:08)
[2018-05-03] MEDS: PHENAZOPYRIDINE HCL 100 MG TAB PO SCH ×3 (08:27→22:08)
[2018-05-03] MEDS: OYST-CAL-D 500MG TABLET PO SCH ×2 (08:27→16:09)
[2018-05-03] MEDS: FLUOXETINE HCL 20 MG CAP PO SCH (08:27)
[2018-05-03] MEDS: BALSAM PERU/CASTOR OIL 5 GM OINT...G. TP SCH (08:28)
[2018-05-03 09:04] LABS: BASOPHILS % 0.2 % (0.0-1.0); EOSINOPHILS # (AUTO) 0.4 (0.0-0.4); EOSINOPHILS % 4.1 % (0.0-6.0); HEMOGLOBIN 9.7 g/dL (12.0-16.0); LYMPHOCYTES # (AUTO) 2.9 (1.0-3.2); LYMPHOCYTES % 31.9 % (18.0-39.1); MEAN CORPUSCULAR HEMOGLOBIN 28.9 pg (28-32); MEAN CORPUSCULAR HGB CONC 30.3 g/dL (31-35); MEAN CORPUSCULAR VOLUME 95.2 fL (81-99); MONOCYTES # (AUTO) 0.6 (0.2-0.8); NEUTROPHILS # (AUTO) 5.2 (2.1-6.9); NEUTROPHILS % 56.4 % (38.7-80.0); PLATELET COUNT 251 x10e3/uL (140-360); RED BLOOD COUNT 3.36 x10e6/uL (3.6-5.1); RED CELL DISTRIBUTION WIDTH 13.2 % (11.7-14.4)
[2018-05-03 09:22] LABS: ANION GAP 10.4 mmol/L (8-16); BLOOD UREA NITROGEN 12 mg/dL (7-26); BUN/CREATININE RATIO 14 (6-25); CARBON DIOXIDE 20 mmol/L (22-29); CHLORIDE 108 mmol/L (98-107); CREATININE, SERUM 0.86 mg/dL (0.57-1.11); EST GLOMERULAR FILTRATION RATE > 60 ML/MIN (60-); GLUCOSE 86 mg/dL (74-118); MAGNESIUM 2.3 MG/DL (1.3-2.1); POTASSIUM 4.4 mmol/L (3.5-5.1); SODIUM 134 mmol/L (136-145)
--- NOTE | 2018-05-03 10:30 | NUR ---
pt off unit for cystoscopy
[2018-05-03] MEDS ORDERED: IOPAMIDOL 610MG/1ML 300 MG/ML VIAL IV ONE (11:09)
[2018-05-03] MEDS ORDERED: BELLADONNA/OPIUM 60 MG SUPP PR ONE (11:09)
--- NOTE | 2018-05-03 11:51 | NUR ---
spoke to in regards to possible d/c today or tomorrow if ok from his specialty and per "may discharge tomorrow."
[2018-05-03] MEDS ORDERED: BELLADONNA/OPIUM 30 MG SUPP RC PRN (12:30)
[2018-05-03] MEDS: SODIUM CHLORIDE 0.9% 1000ML 1,000 ML IV SCH ×2 (12:30→22:30)
[2018-05-03] MEDS ORDERED: ONDANSETRON HCL INJ 2MG/ML 2ML 2 MG/ML VIAL ONE ×2 (12:53→18:31)
[2018-05-03] MEDS ORDERED: FENTANYL CITRATE/PF 100MCG/2 ML INJ ONE ×2 (13:03→18:53)
[2018-05-03] MEDS ORDERED: KETOROLAC TROMETHAMINE 30 MG/ML VIAL ONE (13:34)
[2018-05-03] MEDS ORDERED: IPRATROPIUM BROMIDE 0.02% 2.5 ML NEB NEB SCH (13:45)
[2018-05-03] MEDS ORDERED: SEVOFLURANE INHAL SOLN 250 ML PEN BTL ONE (18:31)
[2018-05-03] MEDS ORDERED: PROPOFOL IV EMULSION 10 MG/ML 20 ML VIAL ONE (18:31)
[2018-05-03] MEDS ORDERED: LIDOCAINE HCL 2% LOCAL INJ 5 ML SDV VIAL INJ ONE (18:31)
[2018-05-03] MEDS ORDERED: MIDAZOLAM HCL 2 MG/2 ML VIAL ONE (18:53)
[2018-05-03] MEDS: MELATONIN 3 MG TAB PO SCH (22:08)
[2018-05-04] VITALS (8 sets, daily range): BP systolic 91–128; BP diastolic 51–67
[2018-05-04] MEDS: MORPHINE SULFATE INJ 4 MG/ML INJ 1ML IV PRN
[2018-05-04] MEDS: ACETAMINOPHEN 325 MG TAB PO PRN ×3 (00:17→20:30)
--- NOTE | 2018-05-04 00:19 | NUR ---
Patient's IV infiltrated. Old IV removed from left hand with tip intact. New IV inserted in left upper arm 20 G. Patient tolerated well.
[2018-05-04] MEDS: ALBUTEROL/IPRATROPIUM 3 ML NEB NEB SCH ×4 (01:00→18:50)
--- NOTE | 2018-05-04 01:45 | NUR ---
Irrigation performed per MD's orders. Patient tolerated well.
--- NOTE | 2018-05-04 05:10 | NUR ---
Patient's temperature and heart rate elevated (102.1F; 125). Gerald Loyola (LYSSA) notified. Order received for blood cultures x 2.
[2018-05-04 05:47] LABS: BASOPHILS % 0.2 % (0.0-1.0); EOSINOPHILS # (AUTO) 0.1 (0.0-0.4); EOSINOPHILS % 0.7 % (0.0-6.0); HEMATOCRIT 30.5 % (34.2-44.1); HEMOGLOBIN 9.2 g/dL (12.0-16.0); LYMPHOCYTES # (AUTO) 0.5 (1.0-3.2); LYMPHOCYTES % 2.8 % (18.0-39.1); MEAN CORPUSCULAR HEMOGLOBIN 28.9 pg (28-32); MEAN CORPUSCULAR HGB CONC 30.2 g/dL (31-35); MEAN CORPUSCULAR VOLUME 95.9 fL (81-99); MONOCYTES # (AUTO) 0.7 (0.2-0.8); MONOCYTES % 4.2 % (4.4-11.3); NEUTROPHILS % 91.2 % (38.7-80.0); PLATELET COUNT 229 x10e3/uL (140-360); RED BLOOD COUNT 3.18 x10e6/uL (3.6-5.1); RED CELL DISTRIBUTION WIDTH 13.6 % (11.7-14.4)
[2018-05-04] MEDS: AMPICILLIN SOD 1 GM/NS 50ML 50 ML IV SCH (05:53)
[2018-05-04 06:13] LABS: BLOOD UREA NITROGEN 15 mg/dL (7-26); BUN/CREATININE RATIO 17 (6-25); CALCIUM 8.3 mg/dL (8.4-10.2); CARBON DIOXIDE 18 mmol/L (22-29); CHLORIDE 110 mmol/L (98-107); CREATININE, SERUM 0.88 mg/dL (0.57-1.11); EST GLOMERULAR FILTRATION RATE > 60 ML/MIN (60-); GLUCOSE 126 mg/dL (74-118); SODIUM 134 mmol/L (136-145)
--- NOTE | 2018-05-04 08:00 | NUR ---
spoke to Estrella OMALLEY in regards to concerning v/s obtained this am and pt noted with blank stare with delayed verbal response when asked questions. O2 saturation level fluctuating between 88-92% s/p DuoNeb and on 2lpm NC. new orders received.
[2018-05-04] MEDS ORDERED: SODIUM CHLORIDE 0.9% 500ML 500 ML IV ONE ×3 (08:15→09:15)
[2018-05-04] MEDS ORDERED: FUROSEMIDE INJ 10 MG/ML 4 ML VIAL IV ONE (08:45)
[2018-05-04] MEDS ORDERED: METHYLPREDNISOLONE SOD SUCC 40 MG/ML VIAL 1ML IV ONE (08:45)
[2018-05-04] MEDS: PIPER-TAZ 3.375 GM 50 ML IV SCH ×3 (09:05→20:28)
--- NOTE | 2018-05-04 09:10 | Diagnostic Imaging Report ---
EXAMINATION: CHEST SINGLE (PORTABLE) COMPARISON: CT abdomen/pelvis 04/29/2017 INDICATION: ^SOB ^[id number] ^[id number] DISCUSSION: Frontal view of the chest obtained at 0849 hours. HEART AND MEDIASTINUM: The cardiomediastinal silhouette is unremarkable. LINES: None. LUNGS: Low lung volumes and bilateral perihilar airspace opacities, left lung greater than right. PLEURA: No pleural effusion or pneumothorax. BONES AND SOFT TISSUES: No focal osseous lesion. The soft tissues are normal. IMPRESSION: Low lung volumes and bilateral airspace opacities suggestive of atelectasis or pneumonia. Signed by: Dr. Gisela Locke MD on 05/04/2018 9:07 AM
[2018-05-04] MEDS: ASCORBIC ACID 500 MG TAB PO SCH ×3 (09:15→20:28)
[2018-05-04] MEDS: LORATADINE 10 MG TAB PO SCH (09:15)
[2018-05-04] MEDS: FLUOXETINE HCL 20 MG CAP PO SCH (09:15)
[2018-05-04] MEDS: NYSTATIN 15 GM POWDER UD BTL TOP SCH ×2 (09:15→17:17)
[2018-05-04] MEDS: RISPERIDONE 0.5 MG TAB PO SCH ×2 (09:15→20:28)
[2018-05-04] MEDS: SODIUM CHLORIDE 0.9% 1000ML 1,000 ML IV SCH ×3 (09:15→23:02)
[2018-05-04] MEDS: VENLAFAXINE HCL 75 MG CAPCR PO SCH (09:15)
[2018-05-04] MEDS: PHENAZOPYRIDINE HCL 100 MG TAB PO SCH ×3 (09:15→20:28)
[2018-05-04] MEDS: OYST-CAL-D 500MG TABLET PO SCH ×2 (09:15→17:00)
[2018-05-04] MEDS: DOCUSATE SODIUM 100 MG CAP PO SCH ×2 (09:15→17:00)
[2018-05-04] MEDS: FAMOTIDINE 20 MG TAB PO SCH ×2 (09:15→16:30)
[2018-05-04] MEDS: FLUTICASONE PROPIONATE NASAL SPRAY NS SCH ×2 (09:15→17:00)
[2018-05-04] MEDS: BALSAM PERU/CASTOR OIL 5 GM OINT...G. TP SCH (09:15)
[2018-05-04] MEDS: LAMOTRIGINE 100 MG TAB PO SCH ×2 (09:15→17:00)
[2018-05-04] MEDS: TOPIRAMATE 25 MG TAB PO SCH ×2 (09:15→20:28)
[2018-05-04] MEDS: OXYBUTYNIN CHLORIDE 5 MG TAB PO SCH ×3 (09:15→20:28)
[2018-05-04] MEDS: TAMSULOSIN HCL 0.4 MG CAP PO SCH (09:15)
--- NOTE | 2018-05-04 09:15 | NUR ---
patient lying in bed with eyes open, Resp even and unlabored. pt mother at bedside speaking with patient and patient able to hold conversation. denies pain, denies SOB. O2 @3lpm via NC with O2 sat @ 96%. call light within reach.
[2018-05-04] MEDS: VANCOMYCIN 1GM/NS 250 ML 250 ML IV SCH (09:38)
[2018-05-04 09:51] LABS: COLOR,URINE ORANGE (YELLOW)
[2018-05-04 09:52] LABS: CLARITY,URINE CLOUDY (CLEAR); KETONES,URINE NEGATIVE (NEGATIVE); LEUKOCYTE ESTERASE ,URINE 1+ (NEGATIVE); NITRITE,URINE POSITIVE (NEGATIVE); PROTEIN,URINE DIPSTICK 2+ (NEGATIVE)
[2018-05-04 09:53] LABS: BILIRUBIN,URINE NEGATIVE (NEGATIVE); URINE UROBILINOGEN 1 mg/dL (0.2 - 1)
[2018-05-04 09:55] LABS: BACTERIA,URINE MODERATE /HPF; EPITHELIAL CELLS,URINE FEW /LPF; MUCUS,URINE FEW (RARE); RBC,URINE >50 /HPF (0-5); WBC,URINE (MAN) 21-50 /HPF (0-5)
--- NOTE | 2018-05-04 19:20 | NUR ---
BEDSIDE ROUNDING DONE. PT RESTING QUIETLY EASILY AROUSED. PATIENT STATED SHE HAS MILD DISCOMFORT IN THE ABDOMEN, POSSIBLY GAS. PATIENT'S MOTHER IS REQUESTED PAIN MEDICATION. RN ASSESSED THE ABDOMEN NOTING HYPOACTIVE. RN EDUCATED PATIENT/MOTHER TO UTILIZE LAXATIVE TO ASSIST WITH BM. BOTH VERBALIZED UNDERSTANDING
[2018-05-04] MEDS: LACTULOSE SYRUP 20 GM/30 ML UDC PO PRN (20:28)
[2018-05-04] MEDS: MELATONIN 3 MG TAB PO SCH (20:28)
--- NOTE | 2018-05-04 20:30 | NUR ---
PATIENT'S MOTHER SPOKE WITH RN REGARDING THE PATIENT'S ABDOMEN PAIN DUE TO POSSIBLE GAS. RN STATED THE PATIENT IS HYPOACTIVE AND WOULD REQUIRE MEDICATION TO ASSIST WITH BOWEL MOVEMENT. PATIENT AGREED TO TAKE LACTULOSE TO ASSIST WITH BM. PATIENT HAD LARGE BM AFTER TAKING LACTULOSE AND FEELS RELIEF IN HER ABDOMEN
[2018-05-04] MEDS: ONDANSETRON HCL INJ 2MG/ML 2ML 2 MG/ML VIAL IV PRN ×2 (21:49)
[2018-05-05] VITALS (8 sets, daily range): BP systolic 94–115; BP diastolic 59–78
[2018-05-05] MEDS: ALBUTEROL/IPRATROPIUM 3 ML NEB NEB SCH ×4 (00:13→20:09)
--- NOTE | 2018-05-05 00:29 | NUR ---
SPOKE WITH SERENA VU REGARDING PATIENT'S BP AT 94/61 WHILE RECEIVING NS 100 ML/HR. PER CONVERSATION, PATIENT'S BP IS POSSIBLY LOW TO SLEEPING AND IS ASYMPTOMATIC, CONTINUE TO MONITOR BP AND UPDATE WITH PHYSICIAN NEEDED.
[2018-05-05] MEDS: PIPER-TAZ 3.375 GM 50 ML IV SCH ×2 (01:53→09:19)
[2018-05-05] MEDS: ONDANSETRON HCL INJ 2MG/ML 2ML 2 MG/ML VIAL IV PRN ×4 (06:24→20:30)
[2018-05-05] MEDS: ACETAMINOPHEN 325 MG TAB PO PRN (06:24)
[2018-05-05 07:00] LABS: BASOPHILS % 0.1 % (0.0-1.0); HEMATOCRIT 25.9 % (34.2-44.1); HEMOGLOBIN 7.8 g/dL (12.0-16.0); LYMPHOCYTES # (AUTO) 0.8 (1.0-3.2); LYMPHOCYTES % 7.3 % (18.0-39.1); MEAN CORPUSCULAR HEMOGLOBIN 28.7 pg (28-32); MEAN CORPUSCULAR HGB CONC 30.1 g/dL (31-35); MEAN CORPUSCULAR VOLUME 95.2 fL (81-99); MONOCYTES # (AUTO) 0.4 (0.2-0.8); MONOCYTES % 3.7 % (4.4-11.3); NEUTROPHILS # (AUTO) 10.2 (2.1-6.9); NEUTROPHILS % 88.5 % (38.7-80.0); PLATELET COUNT 211 x10e3/uL (140-360); RED BLOOD COUNT 2.72 x10e6/uL (3.6-5.1); RED CELL DISTRIBUTION WIDTH 14.1 % (11.7-14.4)
[2018-05-05 07:15] LABS: ANION GAP 11.4 mmol/L (8-16); BLOOD UREA NITROGEN 21 mg/dL (7-26); BUN/CREATININE RATIO 25 (6-25); CALCIUM 8.4 mg/dL (8.4-10.2); CARBON DIOXIDE 20 mmol/L (22-29); CHLORIDE 106 mmol/L (98-107); CREATININE, SERUM 0.85 mg/dL (0.57-1.11); EST GLOMERULAR FILTRATION RATE > 60 ML/MIN (60-); GLUCOSE 102 mg/dL (74-118); MAGNESIUM 1.9 MG/DL (1.3-2.1); POTASSIUM 3.4 mmol/L (3.5-5.1); SODIUM 134 mmol/L (136-145)
[2018-05-05] MEDS ORDERED: POTASSIUM CHLORIDE 20 MEQ TAB CR PO NR (08:45)
[2018-05-05] MEDS ORDERED: FLUCONAZOLE 200 MG/100 ML 100 ML IV SCH (08:45)
[2018-05-05] MEDS: FAMOTIDINE 20 MG TAB PO SCH ×2 (09:18→16:48)
[2018-05-05] MEDS: DOCUSATE SODIUM 100 MG CAP PO SCH ×2 (09:19→16:49)
[2018-05-05] MEDS: NYSTATIN 15 GM POWDER UD BTL TOP SCH ×2 (09:19→16:49)
[2018-05-05] MEDS: OYST-CAL-D 500MG TABLET PO SCH ×2 (09:19→16:49)
[2018-05-05] MEDS: OXYBUTYNIN CHLORIDE 5 MG TAB PO SCH ×3 (09:19→20:30)
[2018-05-05] MEDS: PHENAZOPYRIDINE HCL 100 MG TAB PO SCH ×3 (09:19→20:30)
[2018-05-05] MEDS: LAMOTRIGINE 100 MG TAB PO SCH ×2 (09:19→16:48)
[2018-05-05] MEDS: VENLAFAXINE HCL 75 MG CAPCR PO SCH (09:19)
[2018-05-05] MEDS: FLUOXETINE HCL 20 MG CAP PO SCH (09:19)
[2018-05-05] MEDS: LORATADINE 10 MG TAB PO SCH (09:19)
[2018-05-05] MEDS: TOPIRAMATE 25 MG TAB PO SCH ×2 (09:19→20:30)
[2018-05-05] MEDS: TAMSULOSIN HCL 0.4 MG CAP PO SCH (09:19)
[2018-05-05] MEDS: RISPERIDONE 0.5 MG TAB PO SCH ×2 (09:19→20:30)
[2018-05-05] MEDS: ASCORBIC ACID 500 MG TAB PO SCH ×3 (09:19→20:30)
[2018-05-05] MEDS: BALSAM PERU/CASTOR OIL 5 GM OINT...G. TP SCH (09:19)
[2018-05-05] MEDS: FLUTICASONE PROPIONATE NASAL SPRAY NS SCH ×2 (09:19→16:48)
[2018-05-05 09:32] LABS: BAND NEUTROPHILS % (MANUAL) 2 %; LYMPHOCYTES % (MANUAL) 7 % (19-48); MONOCYTES % (MANUAL) 3 % (3.4-9.0); NEUTROPHILS % (MANUAL) 88 % (40-74); PLATELET ESTIMATE ADEQUATE; PLATELET MORPHOLOGY COMMENT NORMAL
[2018-05-05 09:33] LABS: RBC MORPHOLOGY COMMENT NORMAL
[2018-05-05] MEDS: VANCOMYCIN 1GM/NS 250 ML 250 ML IV SCH (09:39)
[2018-05-05] MEDS: FLUCONAZOLE 200 MG/100 ML 100 ML IV SCH (10:00)
[2018-05-05] MEDS: MORPHINE SULFATE INJ 4 MG/ML INJ 1ML IV PRN ×3 (11:32→20:30)
[2018-05-05 15:25] LABS: BASOPHILS % 0.2 % (0.0-1.0); EOSINOPHILS # (AUTO) 0.1 (0.0-0.4); EOSINOPHILS % 1.1 % (0.0-6.0); HEMATOCRIT 25.4 % (34.2-44.1); HEMOGLOBIN 7.7 g/dL (12.0-16.0); LYMPHOCYTES # (AUTO) 1.4 (1.0-3.2); LYMPHOCYTES % 14.5 % (18.0-39.1); MEAN CORPUSCULAR HEMOGLOBIN 28.4 pg (28-32); MEAN CORPUSCULAR HGB CONC 30.3 g/dL (31-35); MEAN CORPUSCULAR VOLUME 93.7 fL (81-99); MONOCYTES # (AUTO) 0.5 (0.2-0.8); MONOCYTES % 4.7 % (4.4-11.3); NEUTROPHILS # (AUTO) 7.9 (2.1-6.9); PLATELET COUNT 174 x10e3/uL (140-360); RED BLOOD COUNT 2.71 x10e6/uL (3.6-5.1); RED CELL DISTRIBUTION WIDTH 14.2 % (11.7-14.4)
[2018-05-05] MEDS: AMPICILLIN SOD/SULBACTAM 3GM 100 ML IV SCH ×2 (17:11→23:24)
--- NOTE | 2018-05-05 19:30 | NUR ---
Bedside shift performed. RN performed comprehensive assessment on the patient. Patient is not in distress. POC is turn patient every 2 hours, keep clean and dry from skin breakdown. Patient reported pain on the backside and would like pain medication along with anti-nausea medication.
--- NOTE | 2018-05-05 20:09 | Consultation ---
DATE OF CONSULTATION: 05/05/2018 Infectious Disease Consultation Note REASON FOR CONSULTATION: 1. Fever. 2. Enterococcus faecalis and Kati cystitis. 3. Kidney stones, status post ureteral stent placement. 4. Evaluation and antibiotic recommendation. REASON FOR ADMISSION: Abdominal pain and right flank pain. HISTORY OF PRESENT ILLNESS: The patient is a 32-year-old female with past medical history significant for multiple sclerosis, history of DVT of left lower extremity, seizure disorder, urinary calculi and obesity, admitted to the [facility] on 04/29/2018, with right flank pain for 2 weeks. The patient had kidney stones, underwent ureteral stent placement 3 weeks ago. She underwent ultrasound, which showed 7 mm stones in right kidney. She was seen by Dr. Warren, underwent right ureteral stent exchange due to obstruction of the stent and possible infection. White blood cell count on admission was 10,000 which has increased to 16,000. Urine culture on admission on the showed E faecalis which is pansensitive. She received Unasyn and gentamicin prior to surgery. Urine cultures finalized Kati albicans and Enterococcus species on 05/03 from the procedure. Blood cultures were obtained and were pending. Infectious Disease was consulted due to fever spike and elevated white cell count. At the time of my consultation, the patient is lying in bed and continues to complain of right flank pain, severity 5/10. PAST MEDICAL HISTORY: Significant for urinary stones, seizures disorder, functional quadriplegia, anxiety, depression, multiple sclerosis, asthma, pulmonary embolism, DVT of the left lower extremity, obesity, and bipolar disorder. PAST SURGICAL HISTORY: Cholecystectomy, tonsillectomy, adenoidectomy, left knee surgery, right renal stent placement. SOCIAL HISTORY: No tobacco, alcohol, or drug abuse. The patient is resident of [facility]. ALLERGIES: TO FISH CONTAINING PRODUCTS. MEDICATIONS: The patient is on vancomycin, Zosyn, and Diflucan. REVIEW OF SYSTEMS: Limited due to the patient's medical condition. PHYSICAL EXAMINATION: GENERAL: The patient is well-built, well-nourished, moderately obese young lady. VITAL SIGNS: T-max of 99.2, heart rate 113, respirations 20, and blood pressure 105/71. HEENT: Head, atraumatic and normocephalic. Face symmetrical, conjunctivae nonicteric. LUNGS: Clear to auscultation anteriorly. HEART: Regular rate and rhythm. ABDOMEN: Good bowel sounds. Right lower quadrant, slight tenderness. No rebound tenderness. EXTREMITIES: No rashes. LABORATORY DATA: WBC of 16,000 yesterday, decreased to 11,000; hemoglobin 7.8, hematocrit 25, and platelets of 211. Sodium 134, potassium 3.4, chloride 106, bicarb 20, BUN 21, creatinine 0.5. Urine cultures from the right kidney showing Kati albicans and Enterococcus species 11 to 50,000 colonies. Blood cultures, no growth in the last 24 hours. Chest x-ray shows low lung volumes and atelectasis. ASSESSMENT AND PLAN: 1. A 32-year-old with seizures, multiple sclerosis, kidney stones, history of right ureteral stent placement, admitted with abdominal pain and fever, found to have Enterococcus faecalis and Kati cystitis. Recommend to change antibiotics to Unasyn 3 g IV q.6 hours and Diflucan 200 mg IV q.24 hours and we can switch Unasyn to Augmentin 875 mg p.o. q.12 hours in the next 24 to 48 hours. Followup blood cultures. 2. Fever, could be from atelectasis as well. Cannot rule out from Kati cystitis as well. Follow cultures and based on the clinical response, we will change the antibiotics in the next 24 hours. Thank you very much. Dr. Amaya will be resuming the care of the patient in the next 24 hours. MD TONYA Stein/CLARY /[id number]
[2018-05-05] MEDS: MELATONIN 3 MG TAB PO SCH (20:30)
[2018-05-06] VITALS (8 sets, daily range): BP systolic 104–118; BP diastolic 65–79
[2018-05-06] MEDS: ALBUTEROL/IPRATROPIUM 3 ML NEB NEB SCH ×4 (01:00→20:45)
--- NOTE | 2018-05-06 03:00 | NUR ---
The patient's mother came to the nurse station asking when would Dr. Warren would come by today to check on her daughter. RN is unsure what time the MD will visit on the floor, the mother was instructed to wait during the day until Dr. Warren make the visit.
[2018-05-06] MEDS: AMPICILLIN SOD/SULBACTAM 3GM 100 ML IV SCH ×3 (05:13→18:00)
[2018-05-06 05:14] LABS: BASOPHILS % 0.2 % (0.0-1.0); EOSINOPHILS # (AUTO) 0.3 (0.0-0.4); EOSINOPHILS % 3.3 % (0.0-6.0); HEMATOCRIT 25.5 % (34.2-44.1); HEMOGLOBIN 7.7 g/dL (12.0-16.0); LYMPHOCYTES % 20.2 % (18.0-39.1); MEAN CORPUSCULAR HEMOGLOBIN 28.9 pg (28-32); MEAN CORPUSCULAR HGB CONC 30.2 g/dL (31-35); MEAN CORPUSCULAR VOLUME 95.9 fL (81-99); MONOCYTES # (AUTO) 0.5 (0.2-0.8); MONOCYTES % 4.8 % (4.4-11.3); NEUTROPHILS % 70.7 % (38.7-80.0); PLATELET COUNT 211 x10e3/uL (140-360); RED BLOOD COUNT 2.66 x10e6/uL (3.6-5.1); RED CELL DISTRIBUTION WIDTH 14.1 % (11.7-14.4)
[2018-05-06 05:29] LABS: ANION GAP 8.7 mmol/L (8-16); BLOOD UREA NITROGEN 17 mg/dL (7-26); BUN/CREATININE RATIO 25 (6-25); CALCIUM 8.3 mg/dL (8.4-10.2); CARBON DIOXIDE 20 mmol/L (22-29); CHLORIDE 105 mmol/L (98-107); CREATININE, SERUM 0.69 mg/dL (0.57-1.11); EST GLOMERULAR FILTRATION RATE > 60 ML/MIN (60-); GLUCOSE 98 mg/dL (74-118); MAGNESIUM 1.6 MG/DL (1.3-2.1); POTASSIUM 3.7 mmol/L (3.5-5.1); SODIUM 130 mmol/L (136-145)
--- NOTE | 2018-05-06 07:25 | NUR ---
pt asleep resp even and unlabored pt able to make needs known, family member at bedside, call light in reach, will cont toy monitor.l
[2018-05-06] MEDS: FAMOTIDINE 20 MG TAB PO SCH ×2 (07:30→17:51)
[2018-05-06] MEDS: TOPIRAMATE 25 MG TAB PO SCH ×2 (08:30→21:40)
[2018-05-06] MEDS: OYST-CAL-D 500MG TABLET PO SCH ×2 (09:00→17:52)
[2018-05-06] MEDS: LAMOTRIGINE 100 MG TAB PO SCH ×2 (09:00→17:52)
[2018-05-06] MEDS: RISPERIDONE 0.5 MG TAB PO SCH ×2 (09:00→21:40)
[2018-05-06] MEDS: BALSAM PERU/CASTOR OIL 5 GM OINT...G. TP SCH (09:00)
[2018-05-06] MEDS: ASCORBIC ACID 500 MG TAB PO SCH ×3 (09:00→21:40)
[2018-05-06] MEDS: PHENAZOPYRIDINE HCL 100 MG TAB PO SCH ×3 (09:00→21:40)
[2018-05-06] MEDS: TAMSULOSIN HCL 0.4 MG CAP PO SCH (09:00)
[2018-05-06] MEDS: DOCUSATE SODIUM 100 MG CAP PO SCH ×2 (09:00→17:00)
[2018-05-06] MEDS: FLUOXETINE HCL 20 MG CAP PO SCH (09:00)
[2018-05-06] MEDS: NYSTATIN 15 GM POWDER UD BTL TOP SCH ×2 (09:00→17:52)
[2018-05-06] MEDS: OXYBUTYNIN CHLORIDE 5 MG TAB PO SCH ×3 (09:00→21:40)
[2018-05-06] MEDS: LORATADINE 10 MG TAB PO SCH (09:00)
[2018-05-06] MEDS: FLUTICASONE PROPIONATE NASAL SPRAY NS SCH ×2 (09:00→21:40)
[2018-05-06] MEDS: VENLAFAXINE HCL 75 MG CAPCR PO SCH (09:00)
[2018-05-06] MEDS: FLUCONAZOLE 200 MG/100 ML 100 ML IV SCH (09:45)
[2018-05-06] MEDS ORDERED: OYST-CAL-D 500MG TABLET PO SCH (17:00)
--- NOTE | 2018-05-06 19:15 | NUR ---
report given to oncoming nurse, for continued care, pt stable, no distress noted
--- NOTE | 2018-05-06 19:20 | NUR ---
Patient visited in room during nursing rounds. Patient alert and oriented x 2-3. Mother at bedside. Rosenthal cath in place draining pink tinged to dark orange urine. IV on left shoulder due to having poor venous access. Pt on strict bedrest and unable to ambulate. Being turned Q2hr. Call henderson within reach. Will monitor closely.
[2018-05-06] MEDS ORDERED: SODIUM CHLORIDE 0.9% 250ML 250 ML ONE (21:27)
[2018-05-06] MEDS: MELATONIN 3 MG TAB PO SCH (21:40)
[2018-05-07] VITALS: BP 122/80
[2018-05-07] MEDS: AMPICILLIN SOD/SULBACTAM 3GM 100 ML IV SCH ×2 (00:23→05:57)
[2018-05-07] MEDS: ALBUTEROL/IPRATROPIUM 3 ML NEB NEB SCH ×3 (01:00→13:00)
[2018-05-07 04:00] VITALS: BP 115/69
[2018-05-07] MEDS: ONDANSETRON HCL INJ 2MG/ML 2ML 2 MG/ML VIAL IV PRN (04:40)
[2018-05-07 06:04] LABS: BASOPHILS % 0.2 % (0.0-1.0); EOSINOPHILS # (AUTO) 0.2 (0.0-0.4); EOSINOPHILS % 2.3 % (0.0-6.0); HEMATOCRIT 26.8 % (34.2-44.1); HEMOGLOBIN 8.1 g/dL (12.0-16.0); LYMPHOCYTES # (AUTO) 2.5 (1.0-3.2); LYMPHOCYTES % 25.9 % (18.0-39.1); MEAN CORPUSCULAR HEMOGLOBIN 28.7 pg (28-32); MEAN CORPUSCULAR HGB CONC 30.2 g/dL (31-35); MONOCYTES # (AUTO) 0.5 (0.2-0.8); MONOCYTES % 5.3 % (4.4-11.3); NEUTROPHILS # (AUTO) 6.3 (2.1-6.9); PLATELET COUNT 201 x10e3/uL (140-360); RED BLOOD COUNT 2.82 x10e6/uL (3.6-5.1); RED CELL DISTRIBUTION WIDTH 13.8 % (11.7-14.4)
[2018-05-07 06:44] LABS: ANION GAP 11.5 mmol/L (8-16); BLOOD UREA NITROGEN 11 mg/dL (7-26); BUN/CREATININE RATIO 19 (6-25); CARBON DIOXIDE 20 mmol/L (22-29); CHLORIDE 105 mmol/L (98-107); CREATININE, SERUM 0.58 mg/dL (0.57-1.11); EST GLOMERULAR FILTRATION RATE > 60 ML/MIN (60-); GLUCOSE 87 mg/dL (74-118); MAGNESIUM 1.5 MG/DL (1.3-2.1); POTASSIUM 3.5 mmol/L (3.5-5.1); SODIUM 133 mmol/L (136-145)
--- NOTE | 2018-05-07 07:16 | NUR ---
pt alert resp even and unlabored at this time no distress noted pt has no c/o pain when asked, pt able to make needs known, call light in reach.
[2018-05-07 07:55] VITALS: BP 115/77
[2018-05-07 08:00] VITALS: BP 111/57
[2018-05-07] MEDS: VENLAFAXINE HCL 75 MG CAPCR PO SCH (10:03)
[2018-05-07] MEDS: OYST-CAL-D 500MG TABLET PO SCH (10:03)
[2018-05-07] MEDS: OXYBUTYNIN CHLORIDE 5 MG TAB PO SCH (10:03)
[2018-05-07] MEDS: FLUTICASONE PROPIONATE NASAL SPRAY NS SCH (10:03)
[2018-05-07] MEDS: FAMOTIDINE 20 MG TAB PO SCH (10:03)
[2018-05-07] MEDS: TAMSULOSIN HCL 0.4 MG CAP PO SCH (10:03)
[2018-05-07] MEDS: FLUOXETINE HCL 20 MG CAP PO SCH (10:03)
[2018-05-07] MEDS: DOCUSATE SODIUM 100 MG CAP PO SCH (10:03)
[2018-05-07] MEDS: TOPIRAMATE 25 MG TAB PO SCH (10:03)
[2018-05-07] MEDS: LAMOTRIGINE 100 MG TAB PO SCH (10:03)
[2018-05-07] MEDS: PHENAZOPYRIDINE HCL 100 MG TAB PO SCH (10:03)
[2018-05-07] MEDS: LORATADINE 10 MG TAB PO SCH (10:03)
[2018-05-07] MEDS: ASCORBIC ACID 500 MG TAB PO SCH (10:04)
[2018-05-07] MEDS: BALSAM PERU/CASTOR OIL 5 GM OINT...G. TP SCH (10:04)
[2018-05-07] MEDS: RISPERIDONE 0.5 MG TAB PO SCH (10:04)
[2018-05-07] MEDS: FLUCONAZOLE 200 MG/100 ML 100 ML IV SCH (10:04)
--- NOTE | 2018-05-07 10:28 | NUR ---
pt repositioned, no distress noted at this time.
[2018-05-07] MEDS ORDERED: PENICILLIN V POTASSIUM PO (11:45)
[2018-05-07] MEDS ORDERED: DIFLUCAN100 MG PO (11:45)
[2018-05-07 12:00] VITALS: BP 113/67
--- NOTE | 2018-05-07 12:00 | NUR ---
REPORT GIVEN TO JAYLA AT [facility].
[2018-05-07 16:00] VITALS: BP 108/64
--- NOTE | 2018-05-07 16:25 | NUR ---
PT DISCHARGED PT [facility] VIA AMBULANCE SERVICE, PT TOLERATING WELL NO DISTRESS NOTED.
--- NOTE | 2018-05-07 20:54 | Discharge Summary ---
ADMISSION DIAGNOSES: Recurrent urinary tract infections with stent placement, bipolar depression, insomnia, chronic constipation, functional quad, sacral wound stage , pancreatitis. DISCHARGE DIAGNOSES: Recurrent urinary tract infections with stent placement, bipolar depression, insomnia, chronic constipation, functional quad, sacral wound stage , pancreatitis, Kati and Enterococcus urinary tract infection status post cystoscopy with right stent exchange, rule out Clostridium difficile. HISTORY: The patient tremors, insomnia, kidney stones with stent placement, functional quadriplegic, chronic constipation, morbid obesity. The patient says she has a history of multiple sclerosis, but after our urologist spoke with the patient's urologist, there has never been an actual diagnosis made. SURGICAL HISTORY: Tonsillectomy. FAMILY HISTORY: Noncontributory. SOCIAL HISTORY: Noncontributory. HOSPITAL COURSE: A 32-year-old female with a history of UTI and stents, complains of right flank pain over the last 2 weeks. Pain is constant and sharp. She also complains of nausea, vomiting, and diarrhea since Sunday. She denies fever. On admission, the patient was started on Rocephin. Lipase was elevated at 124. The patient was kept n.p.o., was started on IV fluids. Per the patient's mother, the patient was constipated, even though the alf said the patient was having bowel movements. The patient's mom did not believe that. The patient had a CT of the abdomen that showed a right double-J ureteral stent, small right upper renal pole stones. No distention, wall thickening, or evidence of obstruction. Clostridium difficile was negative. Initial urine culture came back positive for Enterococcus. Urology was consulted, who has placed previous stents in the patient. Urology took the patient for a cystoscopy with stent exchange on the right on 05/03/2018. After the procedure, the patient apparently had some trouble breathing in PACU. Chest x-ray was done that showed low lung volumes and bilateral airspace opacities suggestive of atelectasis or pneumonia. The patient then developed a white count the next day and fevers, so Infectious Disease was consulted. Antibiotics were changed from Rocephin to ampicillin once the urine culture came back positive for Enterococcus, but then due to the new sepsis, the patient's antibiotics were changed to vancomycin and Zosyn. Repeat urine culture came back positive for Kati and Enterococcus again. The patient was started on fluconazole and amoxicillin per Infectious Disease. The patient's respiratory status improved greatly after one dose of Lasix and Solu-Medrol. She has been afebrile for a day prior to discharge and the white count has resolved. She will be discharged back to [facility] with amoxacillin and fluconazole per Infectious Disease recommendation. She will have a Rosenthal in place per Urology recommendation and will follow up in several weeks for stent removal. The patient and mother understand discharge instructions and agrees to plan. Vital signs stable. The patient is afebrile. Dictated by Estrella Teague NP MD SOBEIDA Doss/MODL /[id number]
[2018-05-07] MEDS ORDERED: AMOXICILLIN 250 MG CAP PO SCH (22:00)
[2018-05-20] MEDS ORDERED: PROBIOTIC & AC1 EACH PO (05:47)
[2018-05-20] MEDS ORDERED: VENELEX OINTMEN60 GM TOP (05:47)
[2018-05-20] MEDS ORDERED: ZOFRAN4 MG PO (05:47)
[2018-05-20] MEDS ORDERED: PENICILLIN V P500 MG PO (05:47)
[2018-05-20] MEDS ORDERED: DIFLUCAN100 MG PO (05:47)
[2018-05-20] MEDS ORDERED: IPRAT-ALBUT 0.5-3 ML NEB (05:47)
[2018-05-20] MEDS ORDERED: NYSTATIN1 EAC2 TOP (05:47)
[2018-05-24] MEDS ORDERED: ZOSYN 3.373.375 GM/5 IVP (18:15)
--- NOTE | 2018-06-06 04:29 | Operative Report ---
DATE OF PROCEDURE: 05/03/2018 SURGEON: Magdaleno Warren MD PREOPERATIVE DIAGNOSES: 1. Right nephrolithiasis. 2. Right hydronephrosis. 3. Indwelling ureteral stents. 4. Mild rectocele. POSTOPERATIVE DIAGNOSES: 1. Right nephrolithiasis. 2. Right hydronephrosis. 3. Indwelling ureteral stents. 4. Mild rectocele. OPERATION PERFORMED: 1. Cystourethroscopy with complicated removal of right indwelling ureteral stent (separately performed separate scope for the diagnosis of the stent). 2. Right flexible ureteroscopy with stone manipulation (separate procedure performed for the right nephrolithiasis). 3. Radiological services with supervision and interpretation of ureteroscopy. 4. Cystourethroscopy with insertion of right indwelling ureteral stent (separate procedure performed to relieve hydronephrosis). 5. Interpretation of retrograde ureteropyelography. 6. Supervision of fluoroscopy, no radiologist present. 7. Pelvic examination under anesthesia. ANESTHESIA: General. COMPLICATIONS: None. CLINICAL SUMMARY: David Campbell is a 32-year-old woman, who is very debilitated. She came in with urinary tract infection. She has an indwelling ureteral stent. She has had previous procedure. She is brought for the above procedures. She and her mother aware of the risks of bleeding, infection, injury to adjacent structures, need for additional procedures, and elected to proceed. OPERATIVE PROCEDURE IN DETAIL: Informed consent was verified. David Campbell was properly identified, taken to the operating room, placed on the cystoscopy table in supine position. Anesthesia was uneventfully begun. The patient was then carefully and gently repositioned in dorsal lithotomy position with all pressure points were padded. Her genitalia were prepared and draped in usual sterile fashion. A 22.5-Ukrainian cystoscope sheath was inserted in patient's urethra and bladder was drained. Panendoscopy revealed no stones, no suspicious lesions, no tumors. Stent was noted to be emerging from the right ureteral orifice. A guide wire was then placed alongside of the stent and guided to the level of the patient's kidney. The stent was then grasped, completely removed and discarded. A semirigid ureteroscope was then brought up alongside the Glidewire and guided into the distal ureter, we did not identify any stones; however, some fine sand was noted and it was manipulated and irrigated and should be . Flexible ureteroscope was then brought up through secondary guidewire into the right kidney, panendoscopy revealed some sand. We manipulated this fine sand. The patient was also found to have Severino's plaques. She was also found to have some cloudiness of the urine and urine culture was obtained. We irrigated the kidney free of all cloudiness and felt that it would be safest to place a stent the patient is not infected. With cystoscopic and fluoroscopic guidance, the right-sided indwelling ureteral stent was then placed. It was curled in the patient's kidney as well as the patient's bladder. The retaining suture was cut short. could not well appreciated. The new stent was in good position, curled in the patient's kidney as well as the patient's bladder at the end of the case. A Rosenthal catheter was placed. Examination revealed mild grade 1 rectocele, cystocele. No abnormal palpable pelvic masses could be appreciated. I could not palpate the IUD that was present on fluoroscopy. The patient was uneventfully reversed from anesthesia and taken to recovery room in stable condition. There were no complications of the procedure. The patient tolerated the procedure well. Plans will be to proceed with monitoring and management per the primary team. Eventually, send the patient back to the [facility]. I will bring the patient electively back to the operating room when she is in her usual state of health to remove her stent, perform ureteroscopy, and hopefully render the patient stent free and stone free. Magdaleno Warren MD [place]/MODL /[id number]
== END 2018-05-07 16:02 | DRG 659 ==
LOC: ER 07:59 → ERHOLD 11:50 → MED/SURG2 12:35
PROVIDERS: ADMIT Internal Medicine; ATTEND Internal Medicine
PROC: 0T768DZ Dilation of Right Ureter with Intraluminal Device, Via Natural or Artificial Opening Endoscopic (ICD-10-PCS; principal; 2018-05-03 09:30)
PROC: 0TC08ZZ Extirpation of Matter from Right Kidney, Via Natural or Artificial Opening Endoscopic (ICD-10-PCS; principal; 2018-05-03 09:30)
DX: T83.592A Infection and inflammatory reaction due to indwelling ureteral stent, initial encounter (principal); R53.2 Functional quadriplegia; K85.90 Acute pancreatitis without necrosis or infection, unspecified; R65.20 Severe sepsis without septic shock; N13.6 Pyonephrosis; B37.49 Other urogenital candidiasis; F31.9 Bipolar disorder, unspecified; G47.00 Insomnia, unspecified; K59.09 Other constipation; L89.152 Pressure ulcer of sacral region, stage 2; E66.9 Obesity, unspecified; Z68.38 Body mass index [BMI] 38.0-38.9, adult; N81.6 Rectocele; B95.2 Enterococcus as the cause of diseases classified elsewhere; Z91.013 Allergy to seafood; D64.9 Anemia, unspecified; Z68.36 Body mass index [BMI] 36.0-36.9, adult; R06.03 Acute respiratory distress; E87.6 Hypokalemia; E83.51 Hypocalcemia; R53.81 Other malaise; G35 Multiple sclerosis
CPT/HCPCS: 36415; 71045; 74176; 74420; 80048; 80053; 80076; 81001; 81025; 83690; 83735; 83880; 85025; 87040; 87086; 87186; 87493; 94640; 99284; C2617; J0290; J0295; J0360; J0692; J0696; J1450; J1885; J1940; J2001; J2250; J2270; J2405; J2543; J2920; J3370; J7030; J7050

== ENCOUNTER → 2018-11-27 | Outpatient (CLI) | payer OTHER ==
[~2018-11-27] MED LIST changes: +DIFLUCAN100 MG PO; +IPRAT-ALBUT 0.5-3 ML NEB; +NYSTATIN1 EAC2 TOP; +PENICILLIN V P500 MG PO; +PENICILLIN V POTASSIUM PO; +PROBIOTIC & AC1 EACH PO; +VENELEX OINTMEN60 GM TOP; +ZOSYN 3.373.375 GM/5 IVP
--- NOTE | 2018-11-27 13:26 | Diagnostic Imaging Report ---
EXAM: Renal Ultrasound INDICATION: ^CALCULUS OF KIDNEY COMPARISON: CT abdomen and pelvis of 05/20/2018 TECHNIQUE: Transverse and longitudinal images of the kidneys and bladder were obtained. FINDINGS: Right Kidney: Length: 9.0 cm Appearance: Normal echogenicity. Collecting system: No hydronephrosis Stones: 4 mm upper pole echogenic focus corresponds with upper pole calculus seen on prior CT of 05/20/2018. Cyst/Mass: None Left Kidney: Length: 10.7 cm Appearance: Normal echogenicity. Collecting system: No hydronephrosis Stones: None Cyst/Mass: None Bladder: No mass or calculi. Bilateral ureteral jets seen. Prevoid volume estimate of 68.1 cc. IMPRESSION: Right upper pole 4 mm renal calculus. No hydronephrosis. Signed by: Manjit Durant MD on 11/27/2018 1:23 PM
== END ==
LOC: US 11:51
PROVIDERS: ATTEND Urology
DX: N20.0 Calculus of kidney (principal)
CPT/HCPCS: 76770

== ENCOUNTER 2018-12-20 23:14 | Inpatient (IN) | payer OTHER ==
[~2018-12-20] VITALS: Ht 165.1 cm; Wt 105.7 kg
[~2018-12-20 23:14] MED LIST changes: +BIOFREEZE TOP; +FERROUS SULFATE1 GM PO; +PROTONIX20 MG PO; +tylenol #4 PO
[2018-12-21] MEDS ORDERED: SODIUM CHLORIDE 0.9% 1000ML 1,000 ML IV STA (00:07)
[2018-12-21] MEDS ORDERED: PIPER-TAZ 3.375 GM 50 ML IV ONE (00:15)
[2018-12-21] MEDS ORDERED: ONDANSETRON HCL INJ 2MG/ML 2ML 2 MG/ML VIAL IV STA (01:22)
[2018-12-21 01:53] LABS: BILIRUBIN,URINE NEGATIVE (NEGATIVE); CLARITY,URINE SL CLOUDY (CLEAR); COLOR,URINE YELLOW (YELLOW); KETONES,URINE NEGATIVE (NEGATIVE); LEUKOCYTE ESTERASE ,URINE NEGATIVE (NEGATIVE); NITRITE,URINE NEGATIVE (NEGATIVE); PROTEIN,URINE DIPSTICK 1+ (NEGATIVE); URINE UROBILINOGEN 0.2 mg/dL (0.2 - 1)
--- NOTE | 2018-12-21 02:19 | Diagnostic Imaging Report ---
Exam: Left foot radiographs-3 views Clinical History: Trauma. Comparison: None. Findings: Examination is limited secondary to lack of true AP radiograph and foot rotation. There is severe diffuse osteopenia. There is soft tissue edema in the hindfoot. There is no evidence of acute displaced fracture within the limitations of this examination. There are hammertoe deformities. There is a plantar calcaneal spur. Impression: Limited examination. Soft tissue edema in the hindfoot. No evidence of acute displaced fracture. Severe diffuse osteopenia. Signed by: Dr. Jace Levy MD on 12/21/2018 2:15 AM
--- NOTE | 2018-12-21 02:21 | Diagnostic Imaging Report ---
EXAMINATION: CHEST SINGLE (PORTABLE) INDICATION: Fever, query aspiration. COMPARISON: Chest radiograph 05/20/2018. FINDINGS: TUBES and LINES: Interval removal of right arm PICC. LUNGS: Low lung volumes with vascular crowding. Central vascular congestion. Linear subsegmental atelectasis in the bilateral midlung zones. Mild patchy bibasilar opacities. No evidence of lobar consolidation. PLEURA: No pleural effusion or pneumothorax. HEART AND MEDIASTINUM: The cardiomediastinal silhouette is unremarkable. BONES AND SOFT TISSUES: Diffuse osteopenia. No acute osseous abnormality. UPPER ABDOMEN: No free air under the diaphragm. There are cholecystectomy clips. IMPRESSION: Low lung volumes with mild patchy bibasilar opacities, more likely atelectasis than pneumonia. Signed by: Dr. Jace Levy MD on 12/21/2018 2:18 AM
[2018-12-21 02:29] LABS: BACTERIA,URINE MANY /HPF; EPITHELIAL CELLS,URINE MANY /LPF; RBC,URINE >50 /HPF (0-5); WBC,URINE (MAN) >50 /HPF (0-5)
--- NOTE | 2018-12-21 03:07 | NUR ---
STILL NO LABS ON PATIENT, NOT EVEN SHOWING THAT LABS WERE CHECKED IN
[2018-12-21 03:12] LABS: BASOPHILS % 0.1 % (0.0-1.0); HEMOGLOBIN 13.6 g/dL (12.0-16.0); LYMPHOCYTES # (AUTO) 2.5 (1.0-3.2); LYMPHOCYTES % 18.1 % (18.0-39.1); MEAN CORPUSCULAR HEMOGLOBIN 30.4 pg (28-32); MEAN CORPUSCULAR HGB CONC 33.2 g/dL (31-35); MEAN CORPUSCULAR VOLUME 91.7 fL (81-99); MONOCYTES # (AUTO) 0.6 (0.2-0.8); MONOCYTES % 4.2 % (4.4-11.3); NEUTROPHILS # (AUTO) 10.6 (2.1-6.9); NEUTROPHILS % 77.4 % (38.7-80.0); PLATELET COUNT 225 x10e3/uL (140-360); RED BLOOD COUNT 4.47 x10e6/uL (3.6-5.1); RED CELL DISTRIBUTION WIDTH 12.8 % (11.7-14.4)
[2018-12-21] MEDS ORDERED: HYDROCODONE/APAP 10MG-325MG TAB PO ONE (03:15)
[2018-12-21 03:32] LABS: ALANINE AMINOTRANSFERASE 38 IU/L (0-55); ALBUMIN 3.9 g/dL (3.5-5.0); ALKALINE PHOSPHATASE 96 IU/L (40-150); ANION GAP 15.7 mmol/L (8-16); BLOOD UREA NITROGEN 14 mg/dL (7-26); BUN/CREATININE RATIO 22 (6-25); CALCIUM 9.6 mg/dL (8.4-10.2); CARBON DIOXIDE 18 mmol/L (22-29); CHLORIDE 109 mmol/L (98-107); CREATININE, SERUM 0.64 mg/dL (0.57-1.11); EST GLOMERULAR FILTRATION RATE > 60 ML/MIN (60-); GLUCOSE 98 mg/dL (74-118); MAGNESIUM 1.9 MG/DL (1.3-2.1); POTASSIUM 4.7 mmol/L (3.5-5.1); SODIUM 138 mmol/L (136-145)
[2018-12-21 07:22] VITALS: BP 136/78
--- NOTE | 2018-12-21 07:22 | NUR ---
Pt received from ER at this time. Pt is aox3 and able to verbalize needs. 0 s/s of acute distress noted at time of admission. Complains of pain to left lower ext, xray is negative for fx. Pt is on IVF NS @ 100ml and well tolerated. Pt is bed confined stage 1 noted to sacral area and alternating mattress is used, heel protectors placed to bilateral heels. Family at the bedside at this time.
[2018-12-21] MEDS: PIPER-TAZ 3.375 GM 50 ML IV SCH ×4 (07:44→23:10)
[2018-12-21] MEDS: SODIUM CHLORIDE 0.9% 1000ML 1,000 ML IV SCH ×2 (07:44→13:11)
[2018-12-21] MEDS: ONDANSETRON HCL INJ 2MG/ML 2ML 2 MG/ML VIAL IV PRN ×2 (07:45→21:56)
[2018-12-21] MEDS ORDERED: OS-CAL 500+D T1 EACH PO (07:57)
[2018-12-21] MEDS ORDERED: LACTULOSE20 GM/30 M PO (07:57)
[2018-12-21 08:37] VITALS: BP 136/78
[2018-12-21] MEDS ORDERED: TYLENOL # 31 EA PO (08:57)
[2018-12-21] MEDS: HYDROCODONE/APAP 5MG-325MG TAB PO PRN ×3 (09:15→21:56)
[2018-12-21] MEDS ORDERED: ACETAMINOPHEN 325 MG TAB PO PRN (11:15)
[2018-12-21] MEDS ORDERED: HYDRALAZINE HCL 20 MG/ML VIAL IV PRN (11:15)
[2018-12-21 11:53] VITALS: BP 132/77
[2018-12-21] MEDS: TOPIRAMATE 100 MG TAB PO SCH ×2 (13:07→23:10)
--- NOTE | 2018-12-21 14:36 | Diagnostic Imaging Report ---
EXAMINATION: CHEST 2 VIEWS INDICATION: ^r/o aspiration Pneumonia ^Y COMPARISON: 12/21/2018 FINDINGS: PA and lateral views TUBES and LINES: None. LUNGS: Limited by body habitus and low lung volumes. Again seen bilateral midlung linear opacities, likely atelectasis/scarring. PLEURA: No pleural effusion or pneumothorax. HEART AND MEDIASTINUM: The cardiomediastinal silhouette is prominent. BONES AND SOFT TISSUES: Generalized demineralization limits evaluation. No acute osseous lesion. Soft tissues are unremarkable. UPPER ABDOMEN: No free air under the diaphragm. IMPRESSION: Limited as above. Bilateral midlung linear atelectasis/scarring. Mildly enlarged cardiomediastinal silhouette, accentuated by low lung volumes. Signed by: Dr. Ralph Mcbride MD on 12/21/2018 2:33 PM
--- NOTE | 2018-12-21 15:56 | NUR ---
Nutrition Screen Note RD Recommendation for Physician: Continue diet as ordered and assist with meals as needed. Plan of Care: RD following, monitoring for tolerance and adequacy Nutrition reason for involvement: Nutrition Risk Trigger - Aspiration pneumonia Primary Diagnose(s):aspiration pneumonia, UTI, vomiting PMH:mental retardation, MS, kidney stones Ht:65 in Wt:233lb BMI:38.8 kg/m2 IBW:130 lb +/-10% RD Assessment: (12/21/2018) Chart reviewed. Labs and meds reviewed. Initial encounter with patient. Pt is not allergic to fish. Pt does not like fish and it was listed as an allergyin the EMR. Pt with a fair to poor PO intake. Pt denies any difficulty chewing or swallowing, but has a sore throat. Pt has not had any significant wt changes. Pt is able to feed herself, but is unable to cut her meats into bite sized pieces. Current Diet: Regular diet Malnutrition Evaluation (12/21/2018) The patient does not meet criteria for a specified degree of malnutrition at this time. Will re-evaluate at follow-up as appropriate. Diet Education Needs Assessment: Diet education not indicated. Nutrition Care Level: Low Signed: Rigoberto Hayes RD, LD, [facility]
[2018-12-21 16:23] VITALS: BP 119/78
[2018-12-21] MEDS: FAMOTIDINE 20 MG TAB PO SCH (17:53)
[2018-12-21] MEDS: DOCUSATE SODIUM 100 MG CAP PO SCH (17:54)
[2018-12-21] MEDS: LAMOTRIGINE 100 MG TAB PO SCH (17:54)
[2018-12-21] MEDS: FLUTICASONE PROPIONATE NASAL SPRAY NS SCH (17:54)
--- NOTE | 2018-12-21 19:00 | NUR ---
Patient visited in room during nursing rounds. Patient alert and oriented x3. Pt on bedrest and unable to ambulate. On IVF (NS at 100ml/hr). Turn Q2hr. Diapered for incontinence. Left foot covered with justine bandage and pt experiencing frequent pain on left foot. Pain med to be given accordingly. Mother at bedside. Bed alarm active. Call henderson within reach.
[2018-12-21 20:00] VITALS: BP 125/75
--- NOTE | 2018-12-21 21:30 | NUR ---
Pt requesting for IV pain medication. Explained to patient that Estrella Teague ([facility] [employer] for Dr. Benítez) specifically ordered on nurse communication that no additional pain med will be ordered. Currently, patient has [place] ordered prn for pain.
[2018-12-21] MEDS: MELATONIN 3 MG TAB PO PRN (23:10)
[2018-12-22] VITALS (7 sets, daily range): BP systolic 114–130; BP diastolic 58–85
[2018-12-22] MEDS: SODIUM CHLORIDE 0.9% 1000ML 1,000 ML IV SCH ×3 (05:03→23:20)
[2018-12-22] MEDS: PIPER-TAZ 3.375 GM 50 ML IV SCH ×4 (06:03→23:20)
[2018-12-22] MEDS: LAMOTRIGINE 100 MG TAB PO SCH ×2 (08:26→17:32)
[2018-12-22] MEDS: VENLAFAXINE HCL 75 MG CAPCR PO SCH (08:26)
[2018-12-22] MEDS: TAMSULOSIN HCL 0.4 MG CAP PO SCH (08:26)
[2018-12-22] MEDS: LACTOBACILLUS ACIDOPHILUS CAPSULE PO SCH (08:26)
[2018-12-22] MEDS: FLUTICASONE PROPIONATE NASAL SPRAY NS SCH ×2 (08:26→17:32)
[2018-12-22] MEDS: FLUOXETINE HCL 20 MG CAP PO SCH (08:26)
[2018-12-22] MEDS: DOCUSATE SODIUM 100 MG CAP PO SCH ×2 (08:26→17:32)
[2018-12-22] MEDS: FAMOTIDINE 20 MG TAB PO SCH ×2 (08:26→17:32)
[2018-12-22] MEDS: RISPERIDONE 0.5 MG TAB PO SCH (08:27)
[2018-12-22] MEDS: HYDROCODONE/APAP 5MG-325MG TAB PO PRN ×2 (09:32→18:29)
[2018-12-22 09:35] LABS: BASOPHILS % 0.3 % (0.0-1.0); EOSINOPHILS # (AUTO) 0.2 (0.0-0.4); EOSINOPHILS % 1.6 % (0.0-6.0); HEMOGLOBIN 11.6 g/dL (12.0-16.0); LYMPHOCYTES # (AUTO) 2.9 (1.0-3.2); LYMPHOCYTES % 30.3 % (18.0-39.1); MEAN CORPUSCULAR HGB CONC 32.2 g/dL (31-35); MONOCYTES # (AUTO) 0.8 (0.2-0.8); MONOCYTES % 8.5 % (4.4-11.3); NEUTROPHILS # (AUTO) 5.6 (2.1-6.9); PLATELET COUNT 172 x10e3/uL (140-360); RED BLOOD COUNT 3.87 x10e6/uL (3.6-5.1); RED CELL DISTRIBUTION WIDTH 12.9 % (11.7-14.4)
[2018-12-22 09:59] LABS: ALANINE AMINOTRANSFERASE 27 IU/L (0-55); ALBUMIN 3.2 g/dL (3.5-5.0); ALKALINE PHOSPHATASE 74 IU/L (40-150); ANION GAP 9.7 mmol/L (8-16); BLOOD UREA NITROGEN 7 mg/dL (7-26); BUN/CREATININE RATIO 13 (6-25); CALCIUM 8.7 mg/dL (8.4-10.2); CARBON DIOXIDE 18 mmol/L (22-29); CHLORIDE 115 mmol/L (98-107); CREATININE, SERUM 0.55 mg/dL (0.57-1.11); EST GLOMERULAR FILTRATION RATE > 60 ML/MIN (60-); GLUCOSE 88 mg/dL (74-118); POTASSIUM 3.7 mmol/L (3.5-5.1); SODIUM 139 mmol/L (136-145)
[2018-12-22] MEDS: TOPIRAMATE 100 MG TAB PO SCH ×2 (11:57→23:27)
--- NOTE | 2018-12-22 19:00 | NUR ---
Patient visited in room during nursing rounds. Patient alert and oriented x3. Pt on bedrest and unable to ambulate. On IVF (NS at 100ml/hr). Turn Q2hr. Diapered for incontinence. Left foot covered with justine bandage and pt experiencing frequent pain on left foot. Left foot elevated with pillow and on foam heel support. P Bed alarm active. Call henderson within reach.
--- NOTE | 2018-12-22 20:30 | NUR ---
Diaper change performed on patient. Perineal care performed and pt tolerated well.
[2018-12-22] MEDS: MELATONIN 3 MG TAB PO PRN (23:27)
--- NOTE | 2018-12-22 23:30 | NUR ---
Patient requested no labs to be drawn from 0300 till 0700. Pt wants labs drawn at 0800. Will inform gasoline plant operator in the morning.
[2018-12-23] VITALS: BP 109/72
[2018-12-23 04:00] VITALS: BP 131/81
--- NOTE | 2018-12-23 05:30 | NUR ---
Patient asked if ok to draw AM labs now but pt refused and still wanted labs drawn at 0800 this morning. Pt states she just wants to sleep for now. Reference Test Clerk aware.
[2018-12-23] MEDS: PIPER-TAZ 3.375 GM 50 ML IV SCH ×2 (05:36→11:56)
--- NOTE | 2018-12-23 07:00 | NUR ---
BEDSIDE SHIFT REPORT RECEIVED FROM OFF-GOING NURSE. PATIENT IS RESTING IN BED. NO ACUTE DISTRESS NOTED. CALL LIGHT WITHIN REACH. BED IN THE LOWEST POSITION. BED ALARM ON.
[2018-12-23 07:51] VITALS: BP 123/74
[2018-12-23 07:58] LABS: BASOPHILS % 0.1 % (0.0-1.0); EOSINOPHILS # (AUTO) 0.2 (0.0-0.4); HEMATOCRIT 33.4 % (34.2-44.1); HEMOGLOBIN 10.9 g/dL (12.0-16.0); LYMPHOCYTES # (AUTO) 2.6 (1.0-3.2); MEAN CORPUSCULAR HEMOGLOBIN 30.1 pg (28-32); MEAN CORPUSCULAR HGB CONC 32.6 g/dL (31-35); MEAN CORPUSCULAR VOLUME 92.3 fL (81-99); MONOCYTES # (AUTO) 0.5 (0.2-0.8); MONOCYTES % 7.4 % (4.4-11.3); NEUTROPHILS # (AUTO) 3.9 (2.1-6.9); NEUTROPHILS % 53.1 % (38.7-80.0); PLATELET COUNT 159 x10e3/uL (140-360); RED BLOOD COUNT 3.62 x10e6/uL (3.6-5.1); RED CELL DISTRIBUTION WIDTH 12.9 % (11.7-14.4)
[2018-12-23 08:19] LABS: ANION GAP 8.7 mmol/L (8-16); BLOOD UREA NITROGEN 5 mg/dL (7-26); BUN/CREATININE RATIO 9 (6-25); CALCIUM 8.6 mg/dL (8.4-10.2); CARBON DIOXIDE 18 mmol/L (22-29); CHLORIDE 115 mmol/L (98-107); CREATININE, SERUM 0.54 mg/dL (0.57-1.11); EST GLOMERULAR FILTRATION RATE > 60 ML/MIN (60-); GLUCOSE 78 mg/dL (74-118); POTASSIUM 3.7 mmol/L (3.5-5.1); SODIUM 138 mmol/L (136-145)
[2018-12-23] MEDS ORDERED: AUGMENTIN 875-1 EACH PO (08:26)
[2018-12-23] MEDS: DOCUSATE SODIUM 100 MG CAP PO SCH (09:00)
[2018-12-23] MEDS: LACTOBACILLUS ACIDOPHILUS CAPSULE PO SCH (09:34)
[2018-12-23] MEDS: FAMOTIDINE 20 MG TAB PO SCH (09:34)
[2018-12-23] MEDS: LAMOTRIGINE 100 MG TAB PO SCH (09:34)
[2018-12-23] MEDS: FLUTICASONE PROPIONATE NASAL SPRAY NS SCH (09:34)
[2018-12-23] MEDS: TAMSULOSIN HCL 0.4 MG CAP PO SCH (09:34)
[2018-12-23] MEDS: FLUOXETINE HCL 20 MG CAP PO SCH (09:34)
[2018-12-23] MEDS: VENLAFAXINE HCL 75 MG CAPCR PO SCH (09:34)
[2018-12-23] MEDS: RISPERIDONE 0.5 MG TAB PO SCH (09:35)
--- NOTE | 2018-12-23 10:09 | NUR ---
PT IS FROM [facility].
--- NOTE | 2018-12-23 11:10 | NUR ---
WOUND CARE NURSE INITIAL CONSULTATION. 33 YEAR OLD FEMALE ADMITTED TO [facility] WITH DX OF ASPIRATION PNEUMONITIS, UTI, AND VOMITING. HEAD TO TOE ASSESSMENT PERFORMED TODAY. PT PRESENTS WITH A 0.3X0.3X0.1CM HEALING ABRASION TO RIGHT BUTTOCK. PT WITH C/O PAIN TO RIGHT FOOT, WHICH PRESENTS 2+ PITTING EDEMA AND IS WARM TO TOUCH. PT STATES THAT SHE HIT HER FOOT WITH WHEEL CHAIR. X RAY, RIGHT FOOT SHOWS NO FRACTURE AND DIFFUSE OSTEOPENIA. THERE ARE NO OTHER AREAS OF CONCERN NOTED A THIS TIME. NO S/S OF INFECTION. PT REQUIRES MODERATE ASSISTANCE TO REPOSITION. I EDUCATED HER ON PLAN OF CARE AND PRESSURE RELIEF TO AFFECTED AREA. STATES UNDERSTANDING. LABS: WBC: 7.28 ALB: 3.2 RECOMMENDATIONS: CONTINUE WITH ALTERNATING LOW AIR LOSS MATTRESS CONTINUE WITH BILATERAL HEEL PROTECTORS AND ADD PILLOW SUSPENSIONS. APPLY ALLEVYN FOAM TO RIGHT BUTTOCK AND MONITOR DAILY. REPOSITION PT EVERY TWO HOURS AND PRN THANKS FOR THIS CONSULTATION. Addendum: 12/23/18 at 1116 by Ann Marie Ortega RN Amended: Links added.
--- NOTE | 2018-12-23 11:15 | NUR ---
CALLED REPORT TO RECEIVING NURSE (VANE GALAVIZ) AT [facility] AT THIS TIME.
[2018-12-23 11:38] VITALS: BP 124/80
[2018-12-23 11:43] VITALS: BP 124/80
[2018-12-23] MEDS: TOPIRAMATE 100 MG TAB PO SCH (12:14)
--- NOTE | 2018-12-23 13:08 | NUR ---
[facility] HOME FACILITY DISCHARGE INFORMATION PATIENT HAS BEEN ACCEPTED TO: NAME: ERICA DIEHL ADDRESS:[id number] [place] [address] ACCEPTING BUSINESS ADMINISTRATION PROFESSOR: KELLY SOTO MD: GUALBERTO ROOM: [address] NURSE CALL REPORT TO: [phone]
--- NOTE | 2018-12-23 13:29 | NUR ---
RECEIVED DC ORDER FROM LYSSA NELSON. PATIENT IS IN STABLE CONDITION. PATIENT IS TO BE TRANSFERRED BACK TO [facility]. REPORT CALLED TO VANE CLARK @ [phone] AT [facility]. IV LINE TO RIGHT FOREARM DCD WITH TIP INTACT, PRESSURE APPLIED TO SITE, NO BLEEDING NOTED. TRANSFER MARS GIVEN TO EMS PERSONNEL WHICH INCLUDES MED REC LIST. PATIENT TAKEN VIA STRETCHER BY EMS PERSONNEL.
--- NOTE | 2018-12-23 17:43 | Diagnostic Imaging Report ---
Modified barium swallow, 12/23/2018. History: Aspiration pneumonia. Fluoro time: 1.9 min. Dose: 12.8 mGy (PERLA) Discussion: Fluoroscopy was performed by plating technician. A radiologist was not present for exam. Fluoroscopic observation and imaging of the oral cavity, oropharynx, and hypopharynx was performed in the lateral projection during swallowing of liquids and solids, administered by speech pathology. Penetration was noted with thin liquids without evidence of aspiration. See speech pathologist report for findings. Signed by: Erwin Erazo on 12/23/2018 5:40 PM
--- NOTE | 2018-12-24 11:43 | Discharge Summary ---
ADMISSION DIAGNOSES: Urinary tract infection with severe sepsis, depression, insomnia, functional quadriplegia, obesity with a BMI of 38.8. DISCHARGE DIAGNOSES: Urinary tract infection with severe sepsis, depression, insomnia, functional quadriplegia, obesity with a BMI of 38.8. Rule out urinary tract infection, possible pneumonitis with severe sepsis. HISTORY: Tremors, insomnia, kidney stones with stent, functional quadriplegic. SURGICAL HISTORY: Tonsillectomy. FAMILY HISTORY: None. SOCIAL HISTORY: None. HOSPITAL COURSE: A 33-year-old female admits with complaints of low-grade fever with nausea and vomiting after having a lithotripsy with Dr. Warren prior to admission. Before the procedure, she was having right flank pain, but denies abdominal pain currently. Per Dr. Warren report, she did cough during the procedure with possible aspiration. On admission, the patient's urine urinalysis showed WBC. She was started on Zosyn, but the culture was negative. Chest x-ray showed low lung volumes with mild patchy bibasilar opacities, more likely atelectasis than pneumonia. While being transported to the hospital, the EMS hit the patient's left foot on the ambulance door. Foot x-ray was negative. With the Zosyn the white count was normal. Speech therapy was consulted, who did an MBS, which was negative. White count is within normal limits and the patient is afebrile. The blood culture and urine culture are negative, so the patient will discharge back to the facility. The patient and mom understand discharge instructions and agreed to plan. Vital signs are stable. The patient is afebrile. Dictated by Estrella Teague NP MD SOBEIDA Doss/MODL /[id number]
== END 2018-12-23 13:31 | DRG 871 ==
LOC: ER 23:14 → ERHOLD 12-21 03:20 → MED/SURG3 12-21 07:22
PROVIDERS: ADMIT Internal Medicine; ATTEND Internal Medicine
DX: A41.9 Sepsis, unspecified organism (principal); R53.2 Functional quadriplegia; N39.0 Urinary tract infection, site not specified; J98.11 Atelectasis; G47.00 Insomnia, unspecified; Z68.38 Body mass index [BMI] 38.0-38.9, adult; R25.1 Tremor, unspecified; R65.20 Severe sepsis without septic shock; F32.9 Major depressive disorder, single episode, unspecified; E66.9 Obesity, unspecified; Z96.0 Presence of urogenital implants
CPT/HCPCS: 36415; 71045; 71046; 74230; 80048; 80053; 81001; 83605; 83735; 85025; 87040; 87086; 96374; 99284; J2405; J2543; J7030

== ENCOUNTER → 2019-01-31 | Outpatient (CLI) | payer OTHER ==
[~2019-01-31] MED LIST changes: +AUGMENTIN 875-1 EACH PO; +OS-CAL 500+D T1 EACH PO
--- NOTE | 2019-01-31 10:37 | Diagnostic Imaging Report ---
Exam: KUB - 2 views Indication: Renal calculus Comparison: KUB of 12/20/2018, CT abdomen and pelvis of 05/20/2018 Findings: Unchanged 5 mm right upper pole renal calculus. No new radiographically apparent renal calculi. Radiodense material in the colon, likely residual ingested contrast material. Nonobstructive bowel gas pattern. No free air. Status post cholecystectomy. Mild scattered degenerative changes. Impression: Unchanged 5 mm right upper pole renal calculus. Signed by: Manjit Durant MD on 01/31/2019 10:34 AM
== END ==
LOC: RAD 09:03
PROVIDERS: ATTEND Urology
DX: N20.0 Calculus of kidney (principal)
CPT/HCPCS: 74018

== ENCOUNTER → 2019-03-24 | Outpatient (CLI) | payer OTHER ==
--- NOTE | 2019-03-24 12:06 | Diagnostic Imaging Report ---
Exam: KUB Comparison: February 11, 2019 Clinical history: Hydronephrosis Findings: Significant retained feces are noted in the transverse colon and rectum most compatible with constipation. The bowel gas and feces obscured bilateral renal collecting systems. There is no gross evidence of radiopaque stones along the course of bilateral renal collecting systems. The regional osseous structures are unremarkable. Impression: 1. Significant retained feces most compatible with constipation. Signed by: Dr. Jose Smith MD on 03/24/2019 12:04 PM
--- NOTE | 2019-03-24 12:57 | Diagnostic Imaging Report ---
Renal ultrasound Clinical History: Hydronephrosis Discussion: Sonographic evaluation of the kidneys is performed. The kidneys have normal size and cortical echogenicity. The right kidney measures 10.9 cm in length. The left kidney measures 8.5 cm in length. There is no focal renal mass, hydronephrosis, or shadowing renal calculus. No perinephric fluid collection is seen. Survey images of the bladder demonstrate no abnormality. Impression: Normal sonographic evaluation of the kidneys. Signed by: Dr. Jose Smith MD on 03/24/2019 12:55 PM
== END ==
LOC: US 10:46
PROVIDERS: ATTEND Urology
DX: N13.30 Unspecified hydronephrosis (principal)
CPT/HCPCS: 74018; 76770

== ENCOUNTER → 2019-03-28 | Day surgery (SDC) | payer OTHER ==
[~2019-03-28] MED LIST changes: +AZO PO; +B&O 60MG R/S 60 MG SUPP PR ONE; +DEXAMETHASONE SOD PHOS INJ 4 MG/ML VIAL ONE; +EPHEDRINE SULFATE INJ 50 MG/ML VIAL ONE; +EXCEDRIN MIGRA1 EAC3 PO; +FENTANYL CITRATE/PF 100MCG/2 ML INJ ONE; +IOPAMIDOL 300MG/ML 50ML INFUS..BTL IV ONE; +LIDOCAINE HCL 2% LOCAL INJ 5 ML SDV VIAL INJ ONE; +METOCLOPRAMIDE HCL 10 MG/2ML VIAL ONE; +MIDAZOLAM HCL 2 MG/2 ML VIAL ONE; +ONDANSETRON HCL INJ 2MG/ML 2ML 2 MG/ML VIAL ONE; +PIPER-TAZ 3.375 GM 50 ML ONE; +PROPOFOL IV EMULSION 10 MG/ML 20 ML VIAL ONE; +SEVOFLURANE INHAL SOLN 250 ML PEN BTL ONE; +TYLENOL WITH C1 EAC1; +mylanta PO; +tylenol PO
[2019-03-28 07:23] LABS: BASOPHILS % 0.3 % (0.0-1.0); EOSINOPHILS # (AUTO) 0.2 (0.0-0.4); HEMATOCRIT 39.5 % (34.2-44.1); HEMOGLOBIN 12.7 g/dL (12.0-16.0); LYMPHOCYTES # (AUTO) 4.1 (1.0-3.2); LYMPHOCYTES % 45.1 % (18.0-39.1); MEAN CORPUSCULAR HEMOGLOBIN 29.7 pg (28-32); MEAN CORPUSCULAR HGB CONC 32.2 g/dL (31-35); MEAN CORPUSCULAR VOLUME 92.3 fL (81-99); MONOCYTES # (AUTO) 0.5 (0.2-0.8); MONOCYTES % 5.6 % (4.4-11.3); NEUTROPHILS # (AUTO) 4.2 (2.1-6.9); NEUTROPHILS % 46.7 % (38.7-80.0); PLATELET COUNT 206 x10e3/uL (140-360); RED BLOOD COUNT 4.28 x10e6/uL (3.6-5.1); RED CELL DISTRIBUTION WIDTH 13.2 % (11.7-14.4)
[2019-03-28 07:42] LABS: ANION GAP 14.1 mmol/L (8-16); BLOOD UREA NITROGEN 14 mg/dL (7-26); BUN/CREATININE RATIO 23 (6-25); CALCIUM 8.6 mg/dL (8.4-10.2); CARBON DIOXIDE 14 mmol/L (22-29); CHLORIDE 113 mmol/L (98-107); CREATININE, SERUM 0.62 mg/dL (0.57-1.11); EST GLOMERULAR FILTRATION RATE > 60 ML/MIN (60-); GLUCOSE 103 mg/dL (74-118); POTASSIUM 4.1 mmol/L (3.5-5.1); SODIUM 137 mmol/L (136-145)
[2019-03-28 09:40] VITALS: BP 118/76
--- NOTE | 2019-03-28 15:54 | Operative Report ---
DATE OF PROCEDURE: 03/28/2019 SURGEON: Magdaleno Warren MD PREOPERATIVE DIAGNOSIS: Right nephrolithiasis. POSTOPERATIVE DIAGNOSIS: Right nephrolithiasis. OPERATIONS PERFORMED: 1. Staged right-sided extracorporeal shockwave lithotripsy. 2. Supervision of fluoroscopy, no radiologist present. ANESTHESIA: General. COMPLICATIONS: None. CLINICAL SUMMARY: David Campbell is a 33-year-old woman with recurrent nephrolithiasis. The patient has a neurogenic bladder. She is bedbound. She is brought for ESWL. She and her mom were aware of the risks of bleeding, infection, injury to adjacent structures, need for additional procedures and elected to proceed. OPERATIVE PROCEDURE IN DETAIL: Informed consent was verified David Campbell was properly identified, taken to the operating room, and placed on the lithotripsy table in supine position. Anesthesia was uneventfully begun. The patient's right upper pole nephrolithiasis was localized with biplanar fluoroscopy. A total of 2000 shocks were delivered with excellent fragmentation noted after 500 shocks. There was complete dusting of the stone and additional shocks were not required. Due to the fact that the patient had a normal renal ultrasound, had no symptomatology of renal colic, we opted not to perform cystoscopy and retrograde pyelograms at this time. The patient was then uneventfully reversed from anesthesia and taken to recovery room in stable condition. No complications to the procedure. She tolerated the procedure well. Explicit postoperative instructions were given, we will follow the patient up in the office in about a month. Magdaleno Warren MD [place]/MODL /[id number]
== END | disposition home or self-care (01) ==
LOC: OR 06:03
PROVIDERS: ATTEND Urology
DX: N20.0 Calculus of kidney (principal); K21.9 Gastro-esophageal reflux disease without esophagitis; F31.9 Bipolar disorder, unspecified; G35 Multiple sclerosis; Z74.01 Bed confinement status; Z87.442 Personal history of urinary calculi; N39.0 Urinary tract infection, site not specified; R31.0 Gross hematuria; N13.30 Unspecified hydronephrosis; N81.89 Other female genital prolapse; R39.14 Feeling of incomplete bladder emptying; E66.9 Obesity, unspecified; N39.46 Mixed incontinence; N31.9 Neuromuscular dysfunction of bladder, unspecified; Z01.812 Encounter for preprocedural laboratory examination
CPT/HCPCS: 36415; 50590; 80048; 84550; 84702; 85025; J1100; J2001; J2250; J2405; J2543; J2704; J2765; J3010

== ENCOUNTER 2019-08-30 01:18 | Emergency (ER) | payer OTHER ==
[~2019-08-30] VITALS: Ht 165.1 cm; Wt 77.6 kg
[~2019-08-30 01:18] MED LIST changes: -B&O 60MG R/S 60 MG SUPP PR ONE; -DEXAMETHASONE SOD PHOS INJ 4 MG/ML VIAL ONE; -EPHEDRINE SULFATE INJ 50 MG/ML VIAL ONE; -FENTANYL CITRATE/PF 100MCG/2 ML INJ ONE; -IOPAMIDOL 300MG/ML 50ML INFUS..BTL IV ONE; -LIDOCAINE HCL 2% LOCAL INJ 5 ML SDV VIAL INJ ONE; -METOCLOPRAMIDE HCL 10 MG/2ML VIAL ONE; -MIDAZOLAM HCL 2 MG/2 ML VIAL ONE; -ONDANSETRON HCL INJ 2MG/ML 2ML 2 MG/ML VIAL ONE; -PIPER-TAZ 3.375 GM 50 ML ONE; -PROPOFOL IV EMULSION 10 MG/ML 20 ML VIAL ONE; -SEVOFLURANE INHAL SOLN 250 ML PEN BTL ONE
--- NOTE | 2019-08-30 01:58 | Emergency Department Note ---
History of Present Illnes History of Present Illness Chief Complaint: General Medicine Complaints History of Present Illness This is a 33 year old female PRESENTS TO THE ER VIA EMS FROM [facility] C/O CHEST PAIN AND SOB X2 DAYS AND BILATERAL FLANK PAIN X10 DAYS; PER EMS, PT TESTED NEGATIVE FOR COVID AND HAS CURRENT TEST PENDING;PT IS IN A COVID WING AT THE [facility]. V/S/S; NAD NOTED AT THIS TIME; RESP EVEN/UNLABORED. PT STATES SHE WANTS HER MOTHER TO COME OT ER AND SEE HER BECAUSE NO VISITORS ARE ALLOWED AT THE [facility], IT WAS EXPLAINED TO PT THAT NO VISITORS ARE ALLOWED IN THIS FACILITY AT THIS TIME DUE TO SIMMONS PANDEMIC. Historian: Patient, Set Up Operator Tool/EMS Arrival Mode: [place] Onset (how long ago): day(s) (2) Location: BILATERAL CHEST Quality: CHEST PAIN WORSE WITH COUGH AND INSPIRATION, Radiation: Reports non-radiation Severity: moderate Onset quality: gradual Duration (how long): day(s) (2) Timing of current episode: constant Progression: unchanged Chronicity: new Context: Reports recent illness (PT WITH COUGH, DIARRHEA, IN COVID PUI WING AT [facility]) Relieving factors: none Exacerbating factors: other (COUGH, DEEP BREATH) Associated symptoms: Reports other (ALSO C/O BILATERAL FLANK PAIN FOR 10 DAYS) Past Medical/Family History Physician Review I have reviewed the patient's past medical and family history. Any updates have been documented here. Past Medical History Recent Fever: Yes (SUBJECTIVE) Clinical Suspicion of Infectio: No New/Unexplained Change in Ment: No Past Medical History: Asthma, CAD, Kidney Stones, Seizure Disorder, UTI's, Depression, Other Mental Illness, GERD, DVT/PE Other Medical History: MS MENTAL RETARDATION BIPOLAR PSYCHOSIS Past Surgical History: T&A Other Surgery: Tonsillectomy, lithotripsy x4, urinary stents Social History Smoking Cessation: Never Smoker Alcohol Use: None Any Illegal Drug Use: No Family History Family history of heart diseas: Yes Other family history CAD,HTN Other Last Tetanus: UTD Review of Systems Review of Systems Constitutional: Reports no symptoms EENTM: Reports no symptoms Cardiovascular: Reports as per HPI Respiratory: Reports no symptoms Gastrointestinal: Reports no symptoms Genitourinary: Reports no symptoms Musculoskeletal: Reports no symptoms Integumentary: Reports no symptoms Neurological: Reports no symptoms Psychological: Reports no symptoms Endocrine: Reports no symptoms Hematological/Lymphatic: Reports no symptoms Physical Exam Related Data Allergies: Coded Allergies: No Known Allergies (Unverified , 02/11/19) Triage Vital Signs Vital Signs Date Time Temp Pulse Resp B/P (MAP) Pulse Ox O2 Delivery O2 Flow Rate FiO2 08/30/19 01:43 98.8 87 20 107/74 100 Room Air Vital signs reviewed: Yes Physical Exam CONSTITUTIONAL Constitutional: Present well-developed, Present well-nourished HENT HENT: Present normocephalic, Present atraumatic, Present oropharynx cl ear/moist, Present nose normal HENT L/R: Present left ext ear normal, Present right ext ear normal EYES Eyes: Reports PERRL, Reports conjunctivae normal NECK Neck: Present ROM normal PULMONARY Pulmonary: Present effort normal, Present breath sounds normal, Present chest tenderness (TO PALPATION TO BILATERAL ANTERIOR AND LATERAL CHEST WALL.) CARDIOVASCULAR Cardiovascular: Present regular rhythm, Present heart sounds normal, Present capillary refill normal, Present normal rate GASTROINTESTINAL Abdominal: Present soft, Present nontender, Present bowel sounds normal, Present other (NO CVA TENDERNESS PRESENT) GENITOURINARY Genitourinary: Present exam deferred SKIN Skin: Present warm, Present dry MUSCULOSKELETAL Musculoskeletal: Present ROM normal NEUROLOGICAL Neurological: Present alert, Present oriented x 3, Present other (AT BASELINE, PT IS BED RIDDEN SECONDARY TO MS) PSYCHOLOGICAL Psychological: Present mood/affect normal, Present judgement normal Results Laboratory Laboratory Laboratory Tests Test 08/30/19 04:15 White Blood Count 8.20 x10e3/uL (4.8-10.8) Red Blood Count 5.09 x10e6/uL (3.6-5.1) Hemoglobin 14.6 g/dL (12.0-16.0) Hematocrit 47.3 % (34.2-44.1) Mean Corpuscular Volume 92.9 fL (81-99) Mean Corpuscular Hemoglobin 28.7 pg (28-32) Mean Corpuscular Hemoglobin Concent 30.9 g/dL (31-35) Red Cell Distribution Width 13.2 % (11.7-14.4) Platelet Count 218 x10e3/uL (140-360) Neutrophils (%) (Auto) 41.7 % (38.7-80.0) Lymphocytes (%) (Auto) 50.4 % (18.0-39.1) Monocytes (%) (Auto) 5.5 % (4.4-11.3) Eosinophils (%) (Auto) 1.8 % (0.0-6.0) Basophils (%) (Auto) 0.2 % (0.0-1.0) Neutrophils # (Auto) 3.4 (2.1-6.9) Lymphocytes # (Auto) 4.1 (1.0-3.2) Monocytes # (Auto) 0.5 (0.2-0.8) Eosinophils # (Auto) 0.2 (0.0-0.4) Basophils # (Auto) 0.0 (0.0-0.1) Absolute Immature Granulocyte (auto 0.03 x10e3/uL (0-0.1) Sodium Level 137 mmol/L (136-145) Potassium Level 4.6 mmol/L (3.5-5.1) Chloride Level 108 mmol/L (98-107) Carbon Dioxide Level 21 mmol/L (22-29) Anion Gap 12.6 mmol/L (8-16) Blood Urea Nitrogen 10 mg/dL (7-26) Creatinine 0.54 mg/dL (0.57-1.11) Estimat Glomerular Filtration Rate > 60 ML/MIN (60-) BUN/Creatinine Ratio 19 (6-25) Glucose Level 81 mg/dL (74-118) Calcium Level 9.0 mg/dL (8.4-10.2) Total Bilirubin 0.3 mg/dL (0.2-1.2) Aspartate Amino Transf (AST/SGOT) 16 IU/L (5-34) Alanine Aminotransferase (ALT/SGPT) 11 IU/L (0-55) Alkaline Phosphatase 74 IU/L (40-150) Creatine Kinase 28 IU/L (29-168) Creatine Kinase MB 0.70 ng/mL (0-5.0) Troponin I < 0.001 ng/mL (0-0.300) Total Protein 7.4 g/dL (6.5-8.1) Albumin 4.0 g/dL (3.5-5.0) Globulin 3.4 g/dL (2.3-3.5) Albumin/Globulin Ratio 1.2 (0.8-2.0) Lab results reviewed: Yes Imaging Imaging results reviewed: Yes Impressions Procedure: [id number] DX/CHEST SINGLE (PORTABLE) Exam Date: 08/30/19 Exam Time: 214 REPORT STATUS: Signed Examination: Single AP view of the chest. COMPARISON: Chest 2 views 12/21/2018 INDICATION: Chest pain, shortness of breath, cough IMPRESSION: 1. Lines and Tubes: None 2. Lungs are well-inflated. Stable linear opacities in the left lung likely representing scarring. No consolidation. Minimal perihilar interstitial opacities and mild cuffing, which may reflect reactive airway disease or viral infection . No effusion. 3. Cardiomediastinal silhouette is normal. Pulmonary vasculature is normal. 4. No acute bony abnormalities. Signed by: Dr. Yaniv Caraballo M.D. on 08/30/2019 2:59 AM Procedures 12 Lead ECG Interpretation ECG Interpretation : ECG: ECG 1 Arts Education Teacher: Interpreted by ED physician Date: Aug 30, 2019 Time: 02:10 Rhythm: sinus rhythm Rate: normal BPM: 78 QRS axis: normal ST segments normal: Yes T waves normal: Yes Clinical Impression: non-specific ECG Additional Comments LOW VOLTAGE QRS Assessment & Plan Medical Decision Making MDM PT WITH CHEST PAIN, COUGH, FOR 2 DAYS WITH COVID 19 TEST PENDING AT [facility], PT IS ON A COVID PUI WING AT [facility] CBC, CMP, CARDIAC ENZYMES, EKG, CXR ORDERED TO EVAL FOR MYOCARDIAL INFARCTION, PNEUMONIA, ELECTROLYTE ABNORMALITY, Reassessment Reassessment time: 05:02 Reassessment PT STILL IN NO APPARENT DISTRESS, 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 Assessment & Plan Final Impression: (1) Chest wall pain Depart Disposition: DIS TO [facility] BED Last Vital Signs Date Time Temp Pulse Resp B/P (MAP) Pulse Ox O2 Delivery O2 Flow Rate FiO2 08/30/19 01:43 98.8 87 20 107/74 100 Room Air Home Meds Reported Medications [tylenol] No Conflict Check, 650 MG PO PRN 03/27/19 Acetaminophen With Codeine (TYLENOL WITH CODEINE #4 TABLET) 1 Each Tablet, 1 TAB 03/27/19 [mylanta] No Conflict Check, 30 ML PO PRN 03/27/19 Aspirin/Acetaminophen/Caffeine (EXCEDRIN MIGRAINE CAPLET) 1 Each Tablet, 1 TAB PO PRN 03/27/19 Diphenhydramine Hcl (BENADRYL) 25 Mg Capsule, 25 MG PO DAILY PRN for ITCHING 03/27/19 [Azo] No Conflict Check, 97.5 MG PO PRN 03/27/19 Calcium Carbonate/Vitamin D3 (OS-BRISSA 500+D TABLET) 1 Each Tablet, 500 MG PO BID, #30 TAB 12/21/18 Lactulose (LACTULOSE) 20 Gm/30 Ml Solution, 30 ML PO Q6H for constipation, EACH 12/21/18 [biofreeze gel] No Conflict Check, 1 TOP PRN 12/18/18 Pantoprazole Sodium (PROTONIX) 20 Mg Tablet.dr, 40 MG PO DAILY 12/18/18 Ferrous Sulfate (Ferrous Sulfate) 1 Gm Granules, 325 MG PO BID 12/18/18 Ondansetron Hcl* (ZOFRAN*) 4 Mg Tablet, 4 MG PO Q4HR PRN for NAUSEA AND VOMITING 05/20/18 Lactobac Cmb #3/Fos/Pantethine (PROBIOTIC & ACIDOPHILUS CAP) 1 Each Capsule, 1 CAP PO DAILY 05/20/18 Docusate Sodium (DOCUSATE SODIUM) 100 Mg Capsule, 100 MG PO BID, CAP 04/10/18 Venlafaxine Hcl (VENLAFAXINE HCL ER) 75 Mg Cap.er.24h, 150 MG PO DAILY, #30 CAP 03/21/18 Topiramate (TOPIRAMATE) 25 Mg Tablet, 100 MG PO Q12H, #30 TAB 03/21/18 Tamsulosin Hcl* (FLOMAX*) 0.4 Mg Cap, 0.4 MG PO DAILY, #30 CAP 03/21/18 Risperidone (RISPERIDONE) 0.5 Mg Tablet, 0.25 MG PO DAILY, TAB 03/21/18 Melatonin (MELATONIN) 3 Mg Tablet, 3 MG PO HS, TAB 03/21/18 Lamotrigine (LAMICTAL) 100 Mg Tab, 100 MG PO BID 03/21/18 Fluoxetine Hcl (FLUOXETINE HCL) 20 Mg Capsule, 20 MG PO DAILY, #30 CAP 03/21/18 LINDSAY WALLS MD Aug 30, 2019 01:58
--- NOTE | 2019-08-30 03:02 | Diagnostic Imaging Report ---
Examination: Single AP view of the chest. COMPARISON: Chest 2 views 12/21/2018 INDICATION: Chest pain, shortness of breath, cough IMPRESSION: 1. Lines and Tubes: None 2. Lungs are well-inflated. Stable linear opacities in the left lung likely representing scarring. No consolidation. Minimal perihilar interstitial opacities and mild cuffing, which may reflect reactive airway disease or viral infection . No effusion. 3. Cardiomediastinal silhouette is normal. Pulmonary vasculature is normal. 4. No acute bony abnormalities. Signed by: Dr. Yaniv Caraballo M.D. on 08/30/2019 2:59 AM
[2019-08-30 04:30] LABS: BASOPHILS % 0.2 % (0.0-1.0); EOSINOPHILS # (AUTO) 0.2 (0.0-0.4); EOSINOPHILS % 1.8 % (0.0-6.0); HEMATOCRIT 47.3 % (34.2-44.1); HEMOGLOBIN 14.6 g/dL (12.0-16.0); LYMPHOCYTES # (AUTO) 4.1 (1.0-3.2); LYMPHOCYTES % 50.4 % (18.0-39.1); MEAN CORPUSCULAR HEMOGLOBIN 28.7 pg (28-32); MEAN CORPUSCULAR HGB CONC 30.9 g/dL (31-35); MEAN CORPUSCULAR VOLUME 92.9 fL (81-99); MONOCYTES # (AUTO) 0.5 (0.2-0.8); MONOCYTES % 5.5 % (4.4-11.3); NEUTROPHILS # (AUTO) 3.4 (2.1-6.9); NEUTROPHILS % 41.7 % (38.7-80.0); PLATELET COUNT 218 x10e3/uL (140-360); RED BLOOD COUNT 5.09 x10e6/uL (3.6-5.1); RED CELL DISTRIBUTION WIDTH 13.2 % (11.7-14.4)
[2019-08-30 04:48] LABS: ALANINE AMINOTRANSFERASE 11 IU/L (0-55); ALBUMIN/GLOBULIN RATIO 1.2 (0.8-2.0); ALKALINE PHOSPHATASE 74 IU/L (40-150); ANION GAP 12.6 mmol/L (8-16); BLOOD UREA NITROGEN 10 mg/dL (7-26); BUN/CREATININE RATIO 19 (6-25); CARBON DIOXIDE 21 mmol/L (22-29); CHLORIDE 108 mmol/L (98-107); CREATINE KINASE 28 IU/L (29-168); CREATININE, SERUM 0.54 mg/dL (0.57-1.11); EST GLOMERULAR FILTRATION RATE > 60 ML/MIN (60-); GLUCOSE 81 mg/dL (74-118); POTASSIUM 4.6 mmol/L (3.5-5.1); SODIUM 137 mmol/L (136-145)
== END 2019-08-30 05:55 ==
LOC: ER 01:45
DX: R07.89 Other chest pain (principal); R06.02 Shortness of breath; R05 Cough
CPT/HCPCS: 36415; 71045; 80053; 82550; 82553; 84484; 85025; 93005; 99284

== ENCOUNTER → 2019-09-25 | Outpatient (CLI) | payer OTHER ==
--- NOTE | 2019-09-25 13:38 | Diagnostic Imaging Report ---
EXAM: CT Abdomen and Pelvis WITHOUT intravenous contrast INDICATION: Bilateral flank pain COMPARISON: Renal ultrasound 03/24/2019 TECHNIQUE: Abdomen and pelvis were scanned utilizing a multidetector helical scanner from the lung base to the pubic symphysis without administration of IV contrast. Coronal and sagittal reformations were obtained. IV CONTRAST: None ORAL CONTRAST: Water COMPLICATIONS: None RADIATION DOSE: Total DLP: 788 mGy*cm Dose modulation, iterative reconstruction, and/or weight based adjustment of the mA/kV was utilized to reduce the radiation dose to as low as reasonably achievable. FINDINGS: LOWER THORAX: Normal. HEPATOBILIARY: No focal liver lesions. Status post cholecystectomy. SPLEEN: No splenomegaly. PANCREAS: No focal masses or ductal dilatation. ADRENALS: No adrenal nodules. KIDNEYS/URETERS: 5 mm nonobstructive right upper pole renal calculus and 2 mm right midpole renal calculus. No hydronephrosis or hydroureter. PELVIC ORGANS/BLADDER: Unremarkable. PERITONEUM / RETROPERITONEUM: No free air or fluid. LYMPH NODES: No lymphadenopathy. VESSELS: Unremarkable. GI TRACT: Increased stool burden throughout the colon with compact stool ball in the mildly dilated rectum. No abnormal bowel thickening. No bowel obstruction. BONES AND SOFT TISSUES: No acute osseous injury. IMPRESSION: 5 mm and 2 mm nonobstructive right renal calculi. No hydronephrosis or hydroureter. Increased stool burden in the colon with compacted stool balls in the mildly dilated rectum compatible with constipation. No bowel obstruction. Signed by: Manjit Durant MD on 09/25/2019 1:35 PM
== END ==
LOC: CT 12:52
PROVIDERS: ATTEND Urology
DX: N20.0 Calculus of kidney (principal)
CPT/HCPCS: 74176

== ENCOUNTER → 2019-11-04 | Day surgery (SDC) | payer OTHER ==
[~2019-11-04] MED LIST changes: +B&O 60MG R/S 60 MG SUPP PR ONE; +DEXAMETHASONE SOD PHOS INJ 4 MG/ML VIAL ONE; +FENTANYL CITRATE/PF 100MCG/2 ML INJ ONE; +HYDROMORPHONE 1MG/1ML INJ ONE; +IOPAMIDOL 300MG/ML 50ML INFUS..BTL IV ONE; +KETOROLAC TROMETHAMINE 30 MG/ML VIAL ONE; +LIDOCAINE HCL 2% LOCAL INJ 5 ML SDV VIAL INJ ONE; +MECLIZINE HCL12.5 MG PO; +MIDAZOLAM HCL 2 MG/2 ML VIAL ONE; +ONDANSETRON HCL INJ 2MG/ML 2ML 2 MG/ML VIAL ONE; +PIPER-TAZ 3.375 GM 50 ML ONE; +PROPOFOL IV EMULSION 10 MG/ML 20 ML VIAL ONE; +SEVOFLURANE INHAL SOLN 250 ML PEN BTL ONE; +SUCCINYLCHOLINE CHLORIDE 20 MG/ML 10ML VIAL ONE; +TUMS300 MG PO; +TYLENOL325 M2 PO
[2019-11-04 05:58] LABS: CLARITY,URINE CLOUDY (CLEAR); COLOR,URINE YELLOW (YELLOW)
[2019-11-04 05:59] LABS: BILIRUBIN,URINE SMALL (NEGATIVE); KETONES,URINE TRACE (NEGATIVE); LEUKOCYTE ESTERASE ,URINE NEGATIVE (NEGATIVE); NITRITE,URINE NEGATIVE (NEGATIVE); PROTEIN,URINE DIPSTICK TRACE (NEGATIVE); URINE UROBILINOGEN 0.2 mg/dL (0.2 - 1)
[2019-11-04 06:33] LABS: BACTERIA,URINE RARE /HPF; EPITHELIAL CELLS,URINE RARE /LPF
[2019-11-04 06:34] LABS: AMORPHOUS SEDIMENT,URINE MANY (FEW)
--- NOTE | 2019-11-04 07:08 | Diagnostic Imaging Report ---
EXAM: Abdomen 2 radiographs INDICATION: ^PRE-OP #4 ^[id number] ^[id number] COMPARISON: CT dated 09/25/2019 FINDINGS: Nonobstructive bowel gas pattern. No signs of pneumoperitoneum. Large colonic stool burden Faint linear density overlying right renal shadow and right 12th rib. Right upper quadrant surgical clips, likely related to cholecystectomy. No acute osseous abnormality. Clear lung bases. IMPRESSION: 1. Nonobstructive bowel gas pattern. 2. Constipation. 3. Faint linear density overlying right renal shadow and right 12th rib, could correspond to the renal stone seen on CT dated 09/25/2019. Signed by: Dr. Ralph Mcbride MD on 11/04/2019 7:05 AM
[2019-11-04 09:20] VITALS: BP 109/72
--- NOTE | 2019-11-14 11:06 | Operative Report ---
DATE OF PROCEDURE: 11/04/2019 SURGEON: Magdaleno Warren MD PREOPERATIVE DIAGNOSES: 1. Right nephrolithiasis. 2. Urinary tract infections. POSTOPERATIVE DIAGNOSES: 1. Right nephrolithiasis. 2. Urinary tract infections. 3. Mild cystocele. OPERATIONS PERFORMED: Note: These were all staged procedures as part of multistaged, multistep process in managing the patient's urolithiasis. 1. Right-sided extracorporeal shockwave lithotripsy (separate procedure performed for nephrolithiasis). 2. Cystourethroscopy with bilateral ureteral catheterization and retrograde ureteropyelography (separate procedure performed for the urinary tract infections). 3. Interpretation of retrograde ureteropyelography, no radiologist present. 4. Supervision of fluoroscopy, no radiologist present. 5. Pelvic examination under anesthesia. ANESTHESIA: General. COMPLICATIONS: None. CLINICAL SUMMARY: David Campbell is a 33-year-old unfortunate disabled woman. She has had recurrent urinary tract infections as well as urolithiasis. She has had stones previously treated and then she has recurrent stones. She and her mother are aware of the risks of bleeding, infection, injury to adjacent structures, need for additional procedures and elected to proceed. OPERATIVE PROCEDURE IN DETAIL: Informed consent was verified. David Campbell was properly identified taken to the operating room, placed on the lithotripsy table in supine position. Anesthesia was uneventfully begun. The patient's right nephrolithiasis was localized with biplanar fluoroscopy. A total of 3000 shocks were delivered with fragmentation noted. The patient was then carefully and gently repositioned in the dorsal lithotomy position with all pressure points well padded. Her genitalia were prepared and draped in usual sterile fashion. The cystoscope sheath with obturator in place was atraumatically inserted into the patient's urethra. The bladder was drained and the urine culture specimen obtained. Panendoscopy revealed no suspicious mucosal lesions, no tumors, and no stones. There was some debris floating in the bladder, and we will see what that shows on culture and sensitivity. A ureteral catheter was used to cannulate each ureter and retrograde ureteropyelograms were performed. Interpretation of retrograde ureteropyelography contrast was instilled in retrograde fashion bilaterally. Both kidneys were relatively unremarkable. There were filling defects where we performed lithotripsy on the right-hand side, but there was no hydronephrosis and unobstructed drainage was observed bilaterally fluoroscopically. The patient's bladder was drained, cystoscope was withdrawn. Pelvic examination revealed a mild cystocele, no rectocele. No abnormal palpable pelvic masses could be appreciated. The patient was then uneventfully reversed from anesthesia and taken to recovery in stable condition. There were no complications of the procedure. She tolerated the procedure well. Explicit postop instructions were given. We will follow the patient up in the office. Magdaleno Warren MD [place]/[facility] /[id number]
== END | disposition home or self-care (01) ==
LOC: OR 05:15
PROVIDERS: ATTEND Urology
DX: N20.0 Calculus of kidney (principal); N39.0 Urinary tract infection, site not specified; N81.10 Cystocele, unspecified; N32.89 Other specified disorders of bladder; G35 Multiple sclerosis; K21.9 Gastro-esophageal reflux disease without esophagitis; F31.9 Bipolar disorder, unspecified
CPT/HCPCS: 50590; 74018; 81001; 81025; 87086; C1758; J0330; J1100; J1170; J1885; J2001; J2250; J2405; J2543; J2704; J3010; Q9967

== ENCOUNTER → 2020-03-12 | Outpatient (CLI) | payer OTHER ==
[~2020-03-12] MED LIST changes: -B&O 60MG R/S 60 MG SUPP PR ONE; -DEXAMETHASONE SOD PHOS INJ 4 MG/ML VIAL ONE; -FENTANYL CITRATE/PF 100MCG/2 ML INJ ONE; -HYDROMORPHONE 1MG/1ML INJ ONE; -IOPAMIDOL 300MG/ML 50ML INFUS..BTL IV ONE; -KETOROLAC TROMETHAMINE 30 MG/ML VIAL ONE; -LIDOCAINE HCL 2% LOCAL INJ 5 ML SDV VIAL INJ ONE; -MIDAZOLAM HCL 2 MG/2 ML VIAL ONE; -ONDANSETRON HCL INJ 2MG/ML 2ML 2 MG/ML VIAL ONE; -PIPER-TAZ 3.375 GM 50 ML ONE; -PROPOFOL IV EMULSION 10 MG/ML 20 ML VIAL ONE; -SEVOFLURANE INHAL SOLN 250 ML PEN BTL ONE; -SUCCINYLCHOLINE CHLORIDE 20 MG/ML 10ML VIAL ONE
== END ==
LOC: CT 13:03
PROVIDERS: ATTEND Urology
DX: N20.0 Calculus of kidney (principal)
CPT/HCPCS: 74176

== ENCOUNTER → 2020-06-11 | Outpatient (CLI) | payer OTHER | LOC: CT 11:44 | PROVIDERS: ATTEND Urology | DX: N20.0 Calculus of kidney (principal) | CPT/HCPCS: 74176 ==

== ENCOUNTER → 2020-07-21 | Day surgery (SDC) | payer OTHER ==
[~2020-07-21] MED LIST changes: +B&O 60MG R/S 60 MG SUPP PR ONE; +CEPACOL SORE T1 EAC5 PO; +DEXAMETHASONE SOD PHOS INJ 4 MG/ML VIAL ONE; +FENTANYL CITRATE/PF 100MCG/2 ML INJ ONE; +GENTAMICIN 80MG/NS 100 ML 200 ML IV ONE; +IOPAMIDOL 300MG/ML 50ML INFUS..BTL IV ONE; +KETOCONAZOLE15 GM TOP; +LIDOCAINE HCL 2% LOCAL INJ 5 ML SDV VIAL INJ ONE; +ONDANSETRON HCL INJ 2MG/ML 2ML 2 MG/ML VIAL ONE; +PIPERACILLIN/TAZOBACTAM 3.375 GM VIAL ONE; +POVIDONE IODINE 0.05% 0.05 % ML PO ONE; +PROPOFOL IV EMULSION 10 MG/ML 20 ML VIAL ONE; +SODIUM CHLORIDE 0.9% 50ML 50 ML ONE
[2020-07-21 08:40] LABS: BASOPHILS % 0.1 % (0.0-1.0); EOSINOPHILS # (AUTO) 0.2 (0.0-0.4); EOSINOPHILS % 2.1 % (0.0-6.0); HEMOGLOBIN 14.1 g/dL (12.0-16.0); LYMPHOCYTES # (AUTO) 3.9 (1.0-3.2); LYMPHOCYTES % 39.2 % (18.0-39.1); MEAN CORPUSCULAR HEMOGLOBIN 29.4 pg (28-32); MEAN CORPUSCULAR VOLUME 91.7 fL (81-99); MONOCYTES # (AUTO) 0.5 (0.2-0.8); MONOCYTES % 5.5 % (4.4-11.3); NEUTROPHILS # (AUTO) 5.2 (2.1-6.9); NEUTROPHILS % 52.9 % (38.7-80.0); PLATELET COUNT 210 x10e3/uL (140-360); RED CELL DISTRIBUTION WIDTH 12.6 % (11.7-14.4)
[2020-07-21 08:57] LABS: ANION GAP 14.2 mmol/L (8-16); BLOOD UREA NITROGEN 17 mg/dL (7-26); BUN/CREATININE RATIO 27 (6-25); CALCIUM 9.1 mg/dL (8.4-10.2); CARBON DIOXIDE 19 mmol/L (22-29); CHLORIDE 110 mmol/L (98-107); CREATININE, SERUM 0.62 mg/dL (0.57-1.11); EST GLOMERULAR FILTRATION RATE > 60 ML/MIN (60-); GLUCOSE 78 mg/dL (74-118); POTASSIUM 4.2 mmol/L (3.5-5.1); SODIUM 139 mmol/L (136-145)
[2020-07-21 12:15] VITALS: BP 112/63
== END | disposition home or self-care (01) ==
LOC: OR 07:54
PROVIDERS: ATTEND Urology
DX: N20.0 Calculus of kidney (principal); N13.30 Unspecified hydronephrosis; N13.8 Other obstructive and reflux uropathy; N39.0 Urinary tract infection, site not specified; N81.6 Rectocele; N28.89 Other specified disorders of kidney and ureter; G35 Multiple sclerosis; R56.9 Unspecified convulsions; M26.609 Unspecified temporomandibular joint disorder, unspecified side; J45.909 Unspecified asthma, uncomplicated; K21.9 Gastro-esophageal reflux disease without esophagitis; F41.9 Anxiety disorder, unspecified; F31.9 Bipolar disorder, unspecified; Z86.718 Personal history of other venous thrombosis and embolism
CPT/HCPCS: 36415; 52332; 52352; 74018; 74420; 80048; 84550; 84702; 85025; 87086; 88300; C1758; C2617; J1100; J1580; J2001; J2405; J2543; J2704; J3010; Q9967

== ENCOUNTER 2020-07-27 20:07 | Inpatient (IN) | payer OTHER ==
[~2020-07-27] VITALS: Ht 165.1 cm; Wt 77.1 kg
[~2020-07-27 20:07] MED LIST changes: -B&O 60MG R/S 60 MG SUPP PR ONE; -DEXAMETHASONE SOD PHOS INJ 4 MG/ML VIAL ONE; -FENTANYL CITRATE/PF 100MCG/2 ML INJ ONE; -GENTAMICIN 80MG/NS 100 ML 200 ML IV ONE; -IOPAMIDOL 300MG/ML 50ML INFUS..BTL IV ONE; -LIDOCAINE HCL 2% LOCAL INJ 5 ML SDV VIAL INJ ONE; -ONDANSETRON HCL INJ 2MG/ML 2ML 2 MG/ML VIAL ONE; -PIPERACILLIN/TAZOBACTAM 3.375 GM VIAL ONE; -POVIDONE IODINE 0.05% 0.05 % ML PO ONE; -PROPOFOL IV EMULSION 10 MG/ML 20 ML VIAL ONE; -SODIUM CHLORIDE 0.9% 50ML 50 ML ONE; -TYLENOL WITH C1 EAC1; +TYLENOL WITH C1 EAC1 PO
[2020-07-27] MEDS ORDERED: ASPIRIN 81 MG CHEW TAB PO ONE (20:30)
[2020-07-27 21:50] LABS: BASOPHILS % 0.3 % (0.0-1.0); EOSINOPHILS # (AUTO) 0.4 (0.0-0.4); EOSINOPHILS % 4.1 % (0.0-6.0); HEMOGLOBIN 13.6 g/dL (12.0-16.0); LYMPHOCYTES # (AUTO) 3.5 (1.0-3.2); MEAN CORPUSCULAR HEMOGLOBIN 29.4 pg (28-32); MEAN CORPUSCULAR HGB CONC 32.4 g/dL (31-35); MEAN CORPUSCULAR VOLUME 90.9 fL (81-99); MONOCYTES # (AUTO) 0.6 (0.2-0.8); NEUTROPHILS # (AUTO) 5.8 (2.1-6.9); NEUTROPHILS % 55.3 % (38.7-80.0); PLATELET COUNT 238 x10e3/uL (140-360); RED BLOOD COUNT 4.62 x10e6/uL (3.6-5.1); RED CELL DISTRIBUTION WIDTH 12.7 % (11.7-14.4)
[2020-07-27 22:06] LABS: ALANINE AMINOTRANSFERASE 45 IU/L (0-55); ALBUMIN 3.8 g/dL (3.5-5.0); ALKALINE PHOSPHATASE 110 IU/L (40-150); ANION GAP 12.2 mmol/L (8-16); BLOOD UREA NITROGEN 14 mg/dL (7-26); BUN/CREATININE RATIO 23 (6-25); CALCIUM 9.4 mg/dL (8.4-10.2); CARBON DIOXIDE 24 mmol/L (22-29); CHLORIDE 105 mmol/L (98-107); CREATINE KINASE 33 IU/L (29-168); CREATININE, SERUM 0.62 mg/dL (0.57-1.11); EST GLOMERULAR FILTRATION RATE > 60 ML/MIN (60-); GLUCOSE 91 mg/dL (74-118); POTASSIUM 4.2 mmol/L (3.5-5.1); SODIUM 137 mmol/L (136-145)
[2020-07-27] MEDS: SODIUM CHLORIDE 0.9% 1000ML 1,000 ML IV SCH (22:30)
[2020-07-27 22:40] LABS: CLARITY,URINE CLOUDY (CLEAR); COLOR,URINE ORANGE (YELLOW); KETONES,URINE TRACE (NEGATIVE); LEUKOCYTE ESTERASE ,URINE 2+ (NEGATIVE); NITRITE,URINE POSITIVE (NEGATIVE); PROTEIN,URINE DIPSTICK >=300 (NEGATIVE)
[2020-07-27] MEDS: CEFTRIAXONE 1 GM in SODIUM CHLORIDE 0.9% 50ML 50 ML IV SCH (22:41)
[2020-07-27 22:53] LABS: BACTERIA,URINE MANY /HPF; EPITHELIAL CELLS,URINE FEW /LPF; RBC,URINE >50 /HPF (0-5); TRANSITIONAL EPI CELLS,URINE FEW; WBC,URINE (MAN) >50 /HPF (0-5)
[2020-07-28] VITALS (10 sets, daily range): BP systolic 96–124; BP diastolic 63–75
[2020-07-28] MEDS ORDERED: MORPHINE SULFATE INJ 2 MG/ML SYR IV ONE (00:45)
[2020-07-28] MEDS ORDERED: ONDANSETRON HCL INJ 2MG/ML 2ML 2 MG/ML VIAL IV PRN (06:45)
[2020-07-28] MEDS: MORPHINE SULFATE INJ 2 MG/ML SYR IV PRN ×3 (07:12→23:42)
[2020-07-28] MEDS: SODIUM CHLORIDE 0.9% 1000ML 1,000 ML IV SCH ×5 (08:35→23:46)
[2020-07-28 10:57] LABS: BASOPHILS % 0.3 % (0.0-1.0); EOSINOPHILS # (AUTO) 0.4 (0.0-0.4); EOSINOPHILS % 4.1 % (0.0-6.0); HEMATOCRIT 39.9 % (34.2-44.1); HEMOGLOBIN 12.6 g/dL (12.0-16.0); LYMPHOCYTES # (AUTO) 3.5 (1.0-3.2); LYMPHOCYTES % 36.2 % (18.0-39.1); MEAN CORPUSCULAR HEMOGLOBIN 29.2 pg (28-32); MEAN CORPUSCULAR HGB CONC 31.6 g/dL (31-35); MEAN CORPUSCULAR VOLUME 92.6 fL (81-99); MONOCYTES # (AUTO) 0.6 (0.2-0.8); MONOCYTES % 6.2 % (4.4-11.3); NEUTROPHILS # (AUTO) 5.1 (2.1-6.9); PLATELET COUNT 205 x10e3/uL (140-360); RED BLOOD COUNT 4.31 x10e6/uL (3.6-5.1); RED CELL DISTRIBUTION WIDTH 12.6 % (11.7-14.4)
[2020-07-28 11:23] LABS: ALANINE AMINOTRANSFERASE 29 IU/L (0-55); ALBUMIN 3.4 g/dL (3.5-5.0); ALKALINE PHOSPHATASE 83 IU/L (40-150); ANION GAP 13.2 mmol/L (8-16); BLOOD UREA NITROGEN 11 mg/dL (7-26); BUN/CREATININE RATIO 20 (6-25); CALCIUM 8.3 mg/dL (8.4-10.2); CARBON DIOXIDE 19 mmol/L (22-29); CHLORIDE 110 mmol/L (98-107); CREATININE, SERUM 0.56 mg/dL (0.57-1.11); EST GLOMERULAR FILTRATION RATE > 60 ML/MIN (60-); GLUCOSE 74 mg/dL (74-118); POTASSIUM 4.2 mmol/L (3.5-5.1); SODIUM 138 mmol/L (136-145)
[2020-07-28] MEDS ORDERED: MECLIZINE HCL 12.5 MG TAB PO PRN (11:30)
[2020-07-28] MEDS ORDERED: NON-FORMULARY MEDICATION (Acetaminophen (Tylenol) 650 MG) PO SCH (11:30)
[2020-07-28] MEDS ORDERED: NON-FORMULARY MEDICATION (Ondansetron Hcl* (Zofran*) 4 MG) PO PRN (11:30)
[2020-07-28] MEDS ORDERED: BENZOCAINE PO SCH (11:30)
[2020-07-28] MEDS ORDERED: NON-FORMULARY MEDICATION (Acetaminophen With Codeine (Tylenol With Codeine #4 Tablet) 1 TA PO PRN (11:30)
[2020-07-28] MEDS ORDERED: MYLANTA PO SCH (11:30)
[2020-07-28] MEDS ORDERED: DIPHENHYDRAMINE HCL 25 MG CAP PO PRN (11:30)
[2020-07-28] MEDS ORDERED: HYDRALAZINE HCL 20 MG/ML VIAL IV PRN (11:30)
[2020-07-28] MEDS ORDERED: BIOFREEZE TOP PRN (11:30)
[2020-07-28] MEDS ORDERED: CHLORASEPTIC SPRAY 177 ML BTL MM PRN (11:30)
[2020-07-28] MEDS ORDERED: MENTHOL PO SCH (11:30)
[2020-07-28] MEDS ORDERED: POLYETHYLENE GLYCOL 3350 17 GM PACK PO PRN (11:30)
[2020-07-28] MEDS ORDERED: CALCIUM CARBONATE 1500 MG PO SCH (11:30)
[2020-07-28] MEDS ORDERED: PHENAZOPYRIDINE PO PRN (11:30)
[2020-07-28] MEDS: LACTULOSE SYRUP 20 GM/30 ML UDC PO SCH ×4 (12:00→23:41)
[2020-07-28] MEDS ORDERED: CALCIUM CARBONATE 500 MG CHEWABLE TABS PO PRN (12:30)
[2020-07-28] MEDS ORDERED: ACETAMINOPHEN 325 MG TAB PO PRN (12:30)
[2020-07-28] MEDS ORDERED: MAGNESIUM/ALUMINUM/SIMETHICONE 30 ML UDC PO PRN (12:30)
[2020-07-28] MEDS ORDERED: CEPACOL SORE THROAT LOZENGES PO PRN (12:30)
[2020-07-28] MEDS: ACETAMINOPHEN/CODEINE 300MG - 30MG TAB PO PRN (13:35)
[2020-07-28] MEDS: DOCUSATE SODIUM 100 MG CAP PO SCH (16:59)
[2020-07-28] MEDS: LAMOTRIGINE 100 MG TAB PO SCH (16:59)
[2020-07-28] MEDS: ONDANSETRON HCL INJ 2MG/ML 2ML 2 MG/ML VIAL IV PRN ×2 (17:29→23:42)
[2020-07-28] MEDS: CEFTRIAXONE 1 GM in SODIUM CHLORIDE 0.9% 50ML 50 ML IV SCH (20:10)
[2020-07-28] MEDS: MELATONIN 3 MG TAB PO SCH (20:11)
[2020-07-29] VITALS (7 sets, daily range): BP systolic 94–118; BP diastolic 69–85
[2020-07-29] MEDS: ACETAMINOPHEN/CODEINE 300MG - 30MG TAB PO PRN (04:41)
[2020-07-29] MEDS: LACTULOSE SYRUP 20 GM/30 ML UDC PO SCH ×4 (06:11→17:17)
[2020-07-29] MEDS: MORPHINE SULFATE INJ 2 MG/ML SYR IV PRN ×2 (08:09→16:32)
[2020-07-29] MEDS: ONDANSETRON HCL INJ 2MG/ML 2ML 2 MG/ML VIAL IV PRN ×2 (08:09→13:52)
[2020-07-29] MEDS: TAMSULOSIN HCL 0.4 MG CAP PO SCH (08:38)
[2020-07-29] MEDS: VENLAFAXINE HCL 75 MG CAPCR PO SCH (08:38)
[2020-07-29] MEDS: DOCUSATE SODIUM 100 MG CAP PO SCH ×2 (08:38→16:25)
[2020-07-29] MEDS: LACTOBACILLUS ACIDOPHILUS CAPSULE PO SCH (08:38)
[2020-07-29] MEDS: LAMOTRIGINE 100 MG TAB PO SCH ×2 (08:38→16:25)
[2020-07-29] MEDS: PANTOPRAZOLE SOD 40 MG TABEC PO SCH (08:38)
[2020-07-29 09:14] LABS: BASOPHILS % 0.4 % (0.0-1.0); EOSINOPHILS # (AUTO) 0.3 (0.0-0.4); EOSINOPHILS % 3.7 % (0.0-6.0); HEMOGLOBIN 11.6 g/dL (12.0-16.0); LYMPHOCYTES # (AUTO) 2.2 (1.0-3.2); LYMPHOCYTES % 30.7 % (18.0-39.1); MEAN CORPUSCULAR HEMOGLOBIN 29.4 pg (28-32); MEAN CORPUSCULAR HGB CONC 31.4 g/dL (31-35); MEAN CORPUSCULAR VOLUME 93.9 fL (81-99); MONOCYTES # (AUTO) 0.4 (0.2-0.8); MONOCYTES % 6.1 % (4.4-11.3); NEUTROPHILS # (AUTO) 4.2 (2.1-6.9); NEUTROPHILS % 58.7 % (38.7-80.0); PLATELET COUNT 198 x10e3/uL (140-360); RED BLOOD COUNT 3.94 x10e6/uL (3.6-5.1); RED CELL DISTRIBUTION WIDTH 12.5 % (11.7-14.4)
[2020-07-29 09:30] LABS: ANION GAP 12.1 mmol/L (8-16); BLOOD UREA NITROGEN 6 mg/dL (7-26); BUN/CREATININE RATIO 11 (6-25); CALCIUM 8.1 mg/dL (8.4-10.2); CARBON DIOXIDE 17 mmol/L (22-29); CHLORIDE 115 mmol/L (98-107); CREATININE, SERUM 0.55 mg/dL (0.57-1.11); EST GLOMERULAR FILTRATION RATE > 60 ML/MIN (60-); GLUCOSE 83 mg/dL (74-118); MAGNESIUM 1.9 MG/DL (1.3-2.1); PHOSPHORUS 3.2 MG/DL (2.3-4.7); POTASSIUM 4.1 mmol/L (3.5-5.1); SODIUM 140 mmol/L (136-145)
[2020-07-29] MEDS: KETOCONAZOLE 2% CREAM/15 GM TUBE TOP SCH (11:45)
[2020-07-29] MEDS ORDERED: FLUCONAZOLE 100 MG TAB PO ONE (16:00)
[2020-07-29] MEDS: SODIUM CHLORIDE 0.9% 1000ML 1,000 ML IV SCH (16:25)
[2020-07-29] MEDS: MELATONIN 3 MG TAB PO SCH (21:55)
[2020-07-29] MEDS: CEFTRIAXONE 1 GM in SODIUM CHLORIDE 0.9% 50ML 50 ML IV SCH (21:55)
[2020-07-30] VITALS: BP 112/81
[2020-07-30] MEDS: MORPHINE SULFATE INJ 2 MG/ML SYR IV PRN ×3 (01:07→15:50)
[2020-07-30] MEDS: ONDANSETRON HCL INJ 2MG/ML 2ML 2 MG/ML VIAL IV PRN ×2 (01:07→09:18)
[2020-07-30 04:00] VITALS: BP 119/83
[2020-07-30] MEDS: LACTULOSE SYRUP 20 GM/30 ML UDC PO SCH ×3 (05:46→12:00)
[2020-07-30] MEDS: SODIUM CHLORIDE 0.9% 1000ML 1,000 ML IV SCH (07:50)
[2020-07-30 07:52] VITALS: BP 116/80
[2020-07-30] MEDS: PANTOPRAZOLE SOD 40 MG TABEC PO SCH (09:11)
[2020-07-30] MEDS: VENLAFAXINE HCL 75 MG CAPCR PO SCH (09:11)
[2020-07-30] MEDS: DOCUSATE SODIUM 100 MG CAP PO SCH (09:11)
[2020-07-30] MEDS: LAMOTRIGINE 100 MG TAB PO SCH (09:12)
[2020-07-30] MEDS: LACTOBACILLUS ACIDOPHILUS CAPSULE PO SCH (09:12)
[2020-07-30] MEDS: TAMSULOSIN HCL 0.4 MG CAP PO SCH (09:12)
[2020-07-30] MEDS: KETOCONAZOLE 2% CREAM/15 GM TUBE TOP SCH (09:18)
[2020-07-30 09:21] VITALS: BP 116/80
[2020-07-30 11:50] VITALS: BP 104/75
[2020-07-30] MEDS: ACETAMINOPHEN/CODEINE 300MG - 30MG TAB PO PRN (14:40)
[2020-07-30 16:20] VITALS: BP 109/73
== END 2020-07-30 17:12 | DRG 699 ==
LOC: ER 20:23 → ERHOLD 22:22 → MED/SURG 23:55
PROVIDERS: ADMIT Internal Medicine; ATTEND Internal Medicine
DX: T83.511A Infection and inflammatory reaction due to indwelling urethral catheter, initial encounter (principal); N30.00 Acute cystitis without hematuria; B37.49 Other urogenital candidiasis; R31.0 Gross hematuria; Z87.440 Personal history of urinary (tract) infections; Z87.442 Personal history of urinary calculi; J45.909 Unspecified asthma, uncomplicated; Z09 Encounter for follow-up examination after completed treatment for conditions other than malignant neoplasm; Z86.711 Personal history of pulmonary embolism; G35 Multiple sclerosis; Z74.01 Bed confinement status; F31.9 Bipolar disorder, unspecified; F79 Unspecified intellectual disabilities; K21.9 Gastro-esophageal reflux disease without esophagitis; N92.0 Excessive and frequent menstruation with regular cycle; R22.9 Localized swelling, mass and lump, unspecified; B95.2 Enterococcus as the cause of diseases classified elsewhere
CPT/HCPCS: 36415; 74018; 80048; 80053; 81001; 82550; 82553; 83036; 83605; 83735; 84100; 84443; 84484; 84702; 85025; 87040; 87086; 87186; 99284; J0696; J2270; J2405; J7030; U0002

== ENCOUNTER 2021-06-11 16:17 | Emergency (ER) | payer OTHER ==
[~2021-06-11] VITALS: Ht 165.1 cm; Wt 77.1 kg
[2021-06-11 17:07] LABS: BASOPHILS % 0.2 % (0.0-1.0); EOSINOPHILS # (AUTO) 0.2 (0.0-0.4); EOSINOPHILS % 2.2 % (0.0-6.0); HEMATOCRIT 42.3 % (34.2-44.1); HEMOGLOBIN 13.8 g/dL (12.0-16.0); LYMPHOCYTES % 35.6 % (18.0-39.1); MEAN CORPUSCULAR HGB CONC 32.6 g/dL (31-35); MONOCYTES # (AUTO) 0.5 (0.2-0.8); MONOCYTES % 5.3 % (4.4-11.3); NEUTROPHILS # (AUTO) 4.8 (2.1-6.9); NEUTROPHILS % 56.3 % (38.7-80.0); PLATELET COUNT 223 x10e3/uL (140-360); RED CELL DISTRIBUTION WIDTH 13.4 % (11.7-14.4)
[2021-06-11 18:03] LABS: ANION GAP 11.8 mmol/L (8-16); BLOOD UREA NITROGEN 14 mg/dL (7-26); BUN/CREATININE RATIO 25 (6-25); CALCIUM 8.8 mg/dL (8.4-10.2); CARBON DIOXIDE 21 mmol/L (22-29); CHLORIDE 110 mmol/L (98-107); CREATINE KINASE 38 IU/L (29-168); CREATININE, SERUM 0.57 mg/dL (0.57-1.11); EST GLOMERULAR FILTRATION RATE 120 ML/MIN (60-); GLUCOSE 94 mg/dL (74-118); POTASSIUM 3.8 mmol/L (3.5-5.1); SODIUM 139 mmol/L (136-145)
[2021-06-11 20:12] VITALS: BP 111/66
== END 2021-06-11 20:11 ==
LOC: ER 16:42
DX: R07.89 Other chest pain (principal); I25.10 Atherosclerotic heart disease of native coronary artery without angina pectoris; G40.909 Epilepsy, unspecified, not intractable, without status epilepticus; K21.9 Gastro-esophageal reflux disease without esophagitis; F79 Unspecified intellectual disabilities; G35 Multiple sclerosis; G47.00 Insomnia, unspecified; J45.909 Unspecified asthma, uncomplicated; Z86.718 Personal history of other venous thrombosis and embolism
CPT/HCPCS: 36415; 71045; 80048; 82550; 82553; 84484; 85025; 93005; 99284

== ENCOUNTER → 2021-11-18 | Outpatient (CLI) | payer OTHER | LOC: CT 09:14 | PROVIDERS: ATTEND Urology | DX: N20.0 Calculus of kidney (principal) | CPT/HCPCS: 74176 ==

== ENCOUNTER 2021-12-30 21:18 | Emergency (ER) | payer OTHER ==
[~2021-12-30] VITALS: Ht 165.1 cm; Wt 77.1 kg
== END 2021-12-30 21:48 | disposition home or self-care (01) ==
LOC: ER 21:23
DX: S60.042A Contusion of left ring finger without damage to nail, initial encounter (principal); W49.04XA Ring or other jewelry causing external constriction, initial encounter; Y92.89 Other specified places as the place of occurrence of the external cause
CPT/HCPCS: 99283

== ENCOUNTER → 2022-07-28 | Outpatient (CLI) | payer OTHER ==
[~2022-07-28] MED LIST changes: +BENZONATATE100 MG PO; +ERGOCALCIFEROL1 GM PO; +LAMOTRIGINE100 MG PO; +ZYPREXA5 MG PO
== END ==
LOC: CT 08:50
PROVIDERS: ATTEND Urology
DX: N20.0 Calculus of kidney (principal)
CPT/HCPCS: 74176

== ENCOUNTER 2022-08-02 16:10 | Inpatient (IN) | payer OTHER ==
[~2022-08-02] VITALS: Ht 165.1 cm; Wt 77.1 kg
[2022-08-02 00:30] VITALS: BP 153/96; PULSE 55; RESP 18; TEMP 99.3; O2SAT 99
[~2022-08-02 16:10] MED LIST changes: -BENZONATATE100 MG PO; -ERGOCALCIFEROL1 GM PO; -LAMOTRIGINE100 MG PO; -ZYPREXA5 MG PO
[2022-08-02] MEDS ORDERED: SODIUM CHLORIDE FLUSH 10 ML SYR INJ PRN (19:45)
[2022-08-02] MEDS ORDERED: ONDANSETRON HCL INJ 2MG/ML 2ML 2 MG/ML VIAL IV PRN (19:45)
[2022-08-02] MEDS: Morphine 2mg Syringe 2 MG/ML SYR IV PRN (20:18)
[2022-08-02 20:25] LABS: BASOPHILS % 0.2 % (0.0-1.0); EOSINOPHILS % 0.1 % (0.0-6.0); HEMATOCRIT 41.9 % (34.2-44.1); HEMOGLOBIN 13.6 g/dL (12.0-16.0); LYMPHOCYTES # (AUTO) 1.1 (1.0-3.2); LYMPHOCYTES % 6.5 % (18.0-39.1); MEAN CORPUSCULAR HEMOGLOBIN 29.2 pg (28-32); MEAN CORPUSCULAR HGB CONC 32.5 g/dL (31-35); MEAN CORPUSCULAR VOLUME 89.9 fL (81-99); MONOCYTES # (AUTO) 0.6 (0.2-0.8); MONOCYTES % 3.6 % (4.4-11.3); NEUTROPHILS # (AUTO) 14.9 (2.1-6.9); NEUTROPHILS % 89.2 % (38.7-80.0); PLATELET COUNT 237 x10e3/uL (140-360); RED BLOOD COUNT 4.66 x10e6/uL (3.6-5.1); RED CELL DISTRIBUTION WIDTH 13.9 % (11.7-14.4)
[2022-08-02 20:39] LABS: CALCIUM 9.3 mg/dL (8.4-10.2); CREATININE, SERUM 0.69 mg/dL (0.57-1.11)
[2022-08-02 21:15] VITALS: PULSE 106; RESP 20; O2SAT 99
[2022-08-02 23:35] VITALS: BP 153/96; PULSE 55; RESP 16; TEMP 99.3; O2SAT 95
[2022-08-02 23:44] VITALS: BP 153/96; PULSE 55; RESP 16; TEMP 99.3; O2SAT 95
[2022-08-03] VITALS (8 sets, daily range): BP systolic 101–153; BP diastolic 64–96; PULSE 55–117; RESP 16–20; TEMP 97.9–99.3; O2SAT 94–99
[2022-08-03] MEDS ORDERED: LAMOTRIGINE100 MG PO (01:01)
[2022-08-03] MEDS ORDERED: BENZONATATE100 MG PO (01:14)
[2022-08-03] MEDS ORDERED: ERGOCALCIFEROL1 GM PO (01:14)
[2022-08-03] MEDS ORDERED: ZYPREXA5 MG PO (01:19)
[2022-08-03] MEDS: Morphine 2mg Syringe 2 MG/ML SYR IV PRN (01:41)
[2022-08-03] MEDS: HYDROCODONE/APAP 5MG-325MG TAB PO PRN ×2 (13:30→18:28)
[2022-08-04] VITALS: BP 110/73; PULSE 105; RESP 18; TEMP 99.1; O2SAT 95
[2022-08-04 04:00] VITALS: BP 105/76; PULSE 94; RESP 18; TEMP 99.1; O2SAT 100
[2022-08-04 05:50] LABS: BASOPHILS % 0.3 % (0.0-1.0); EOSINOPHILS # (AUTO) 0.1 (0.0-0.4); EOSINOPHILS % 0.5 % (0.0-6.0); HEMATOCRIT 38.8 % (34.2-44.1); HEMOGLOBIN 12.2 g/dL (12.0-16.0); LYMPHOCYTES # (AUTO) 3.3 (1.0-3.2); LYMPHOCYTES % 27.2 % (18.0-39.1); MEAN CORPUSCULAR HGB CONC 31.4 g/dL (31-35); MEAN CORPUSCULAR VOLUME 92.2 fL (81-99); MONOCYTES % 8.4 % (4.4-11.3); NEUTROPHILS # (AUTO) 7.6 (2.1-6.9); NEUTROPHILS % 63.2 % (38.7-80.0); PLATELET COUNT 209 x10e3/uL (140-360); RED BLOOD COUNT 4.21 x10e6/uL (3.6-5.1); RED CELL DISTRIBUTION WIDTH 13.8 % (11.7-14.4)
[2022-08-04] MEDS ORDERED: BENZONATATE 100 MG CAP PO PRN (08:15)
[2022-08-04] MEDS ORDERED: POLYETHYLENE GLYCOL 3350 17 GM PACK PO PRN (08:15)
[2022-08-04 08:36] VITALS: BP 115/72; PULSE 105; RESP 20; TEMP 98.4; O2SAT 94
[2022-08-04 08:36] LABS: ALBUMIN 3.3 g/dL (3.5-5.0); ALBUMIN/GLOBULIN RATIO 0.9 (0.8-2.0); ANION GAP 11.6 mmol/L (8-16); CALCIUM 8.8 mg/dL (8.4-10.2); CREATININE, SERUM 0.55 mg/dL (0.57-1.11); POTASSIUM 4.6 mmol/L (3.5-5.1)
[2022-08-04] MEDS: PANTOPRAZOLE SOD 40 MG TABEC PO SCH (08:44)
[2022-08-04] MEDS: TAMSULOSIN HCL 0.4 MG CAP PO SCH (08:44)
[2022-08-04] MEDS: DOCUSATE SODIUM 100 MG CAP PO SCH ×2 (08:44→16:12)
[2022-08-04] MEDS: SODIUM CHLORIDE 0.45% 1,000 ML IV SCH ×2 (08:44→21:32)
[2022-08-04] MEDS: HYDROCODONE/APAP 5MG-325MG TAB PO PRN (08:57)
[2022-08-04 12:25] VITALS: BP 113/82; PULSE 97; RESP 19; TEMP 98.8; O2SAT 97
[2022-08-04] MEDS: Morphine 2mg Syringe 2 MG/ML SYR IV PRN ×2 (16:11→21:36)
[2022-08-04 16:46] VITALS: BP 122/78; PULSE 117; RESP 20; TEMP 98.6; O2SAT 98
[2022-08-04 20:00] VITALS: BP 114/85; PULSE 116; RESP 18; TEMP 97.4; O2SAT 98
[2022-08-04] MEDS: OLANZAPINE 5 MG TAB PO SCH (21:32)
[2022-08-04] MEDS: MELATONIN 3 MG TAB PO SCH (21:32)
[2022-08-04] MEDS: LAMOTRIGINE 100 MG TAB PO SCH (21:33)
[2022-08-05] VITALS (8 sets, daily range): BP systolic 100–140; BP diastolic 72–87; PULSE 78–109; RESP 16–18; TEMP 97.3–98.9; O2SAT 97–100
[2022-08-05] MEDS: DOCUSATE SODIUM 100 MG CAP PO SCH ×2 (07:54→16:11)
[2022-08-05] MEDS: PANTOPRAZOLE SOD 40 MG TABEC PO SCH (07:54)
[2022-08-05] MEDS: TAMSULOSIN HCL 0.4 MG CAP PO SCH (07:54)
[2022-08-05] MEDS: SODIUM CHLORIDE 0.45% 1,000 ML IV SCH ×2 (07:57→21:21)
[2022-08-05] MEDS: HYDROCODONE/APAP 5MG-325MG TAB PO PRN ×4 (08:44→23:27)
[2022-08-05] MEDS: Morphine 2mg Syringe 2 MG/ML SYR IV PRN ×3 (13:26→23:27)
[2022-08-05] MEDS: MELATONIN 3 MG TAB PO SCH (21:20)
[2022-08-05] MEDS: OLANZAPINE 5 MG TAB PO SCH (21:20)
[2022-08-05] MEDS: LAMOTRIGINE 100 MG TAB PO SCH (21:20)
[2022-08-06] VITALS (7 sets, daily range): BP systolic 101–127; BP diastolic 69–79; PULSE 94–107; RESP 16–18; TEMP 97.4–98.5; O2SAT 96–98
[2022-08-06] MEDS: HYDROCODONE/APAP 5MG-325MG TAB PO PRN ×3 (05:05→21:39)
[2022-08-06] MEDS: Morphine 2mg Syringe 2 MG/ML SYR IV PRN ×4 (05:05→21:40)
[2022-08-06 05:47] LABS: BASOPHILS % 0.3 % (0.0-1.0); EOSINOPHILS # (AUTO) 0.2 (0.0-0.4); HEMATOCRIT 31.5 % (34.2-44.1); LYMPHOCYTES # (AUTO) 2.8 (1.0-3.2); LYMPHOCYTES % 39.7 % (18.0-39.1); MEAN CORPUSCULAR HEMOGLOBIN 29.1 pg (28-32); MEAN CORPUSCULAR HGB CONC 31.7 g/dL (31-35); MEAN CORPUSCULAR VOLUME 91.6 fL (81-99); MONOCYTES # (AUTO) 0.5 (0.2-0.8); MONOCYTES % 7.5 % (4.4-11.3); NEUTROPHILS # (AUTO) 3.5 (2.1-6.9); NEUTROPHILS % 49.2 % (38.7-80.0); PLATELET COUNT 173 x10e3/uL (140-360); RED BLOOD COUNT 3.44 x10e6/uL (3.6-5.1); RED CELL DISTRIBUTION WIDTH 13.2 % (11.7-14.4)
[2022-08-06 06:12] LABS: ANION GAP 12.8 mmol/L (8-16); CALCIUM 8.2 mg/dL (8.4-10.2); CREATININE, SERUM 0.45 mg/dL (0.57-1.11); POTASSIUM 3.8 mmol/L (3.5-5.1)
[2022-08-06] MEDS: PANTOPRAZOLE SOD 40 MG TABEC PO SCH (09:38)
[2022-08-06] MEDS: TAMSULOSIN HCL 0.4 MG CAP PO SCH (09:39)
[2022-08-06] MEDS: DOCUSATE SODIUM 100 MG CAP PO SCH ×2 (09:39→16:42)
[2022-08-06] MEDS: OLANZAPINE 5 MG TAB PO SCH (19:42)
[2022-08-06] MEDS: MELATONIN 3 MG TAB PO SCH (19:42)
[2022-08-06] MEDS: LAMOTRIGINE 100 MG TAB PO SCH (19:42)
[2022-08-07] VITALS (7 sets, daily range): BP systolic 99–126; BP diastolic 70–77; PULSE 91–104; RESP 17–20; TEMP 97.7–98.9; O2SAT 97–100
[2022-08-07] MEDS: Morphine 2mg Syringe 2 MG/ML SYR IV PRN ×3 (03:21→17:20)
[2022-08-07] MEDS: HYDROCODONE/APAP 5MG-325MG TAB PO PRN ×3 (03:21→17:20)
[2022-08-07] MEDS: DOCUSATE SODIUM 100 MG CAP PO SCH ×2 (08:37→17:20)
[2022-08-07] MEDS: PANTOPRAZOLE SOD 40 MG TABEC PO SCH (08:38)
[2022-08-07] MEDS: TAMSULOSIN HCL 0.4 MG CAP PO SCH (08:38)
[2022-08-07] MEDS: MELATONIN 3 MG TAB PO SCH (21:08)
[2022-08-07] MEDS: LAMOTRIGINE 100 MG TAB PO SCH (21:09)
[2022-08-07] MEDS: OLANZAPINE 5 MG TAB PO SCH (21:10)
[2022-08-08] VITALS (7 sets, daily range): BP systolic 108–120; BP diastolic 72–79; PULSE 99–116; RESP 16–20; TEMP 97.9–98.6; O2SAT 96–98
[2022-08-08] MEDS: DOCUSATE SODIUM 100 MG CAP PO SCH ×2 (09:00→17:00)
[2022-08-08] MEDS: TAMSULOSIN HCL 0.4 MG CAP PO SCH (10:10)
[2022-08-08] MEDS: PANTOPRAZOLE SOD 40 MG TABEC PO SCH (10:11)
[2022-08-08] MEDS: HYDROCODONE/APAP 5MG-325MG TAB PO PRN ×2 (13:56→21:13)
[2022-08-08] MEDS: Morphine 2mg Syringe 2 MG/ML SYR IV PRN ×2 (13:56→18:57)
[2022-08-08] MEDS: ONDANSETRON HCL 4 MG ORAL DISINTEGRATING TAB PO PRN (14:01)
[2022-08-08] MEDS: OLANZAPINE 5 MG TAB PO SCH (21:12)
[2022-08-08] MEDS: LAMOTRIGINE 100 MG TAB PO SCH (21:13)
[2022-08-08] MEDS: MELATONIN 3 MG TAB PO SCH (21:13)
[2022-08-09] VITALS (8 sets, daily range): BP systolic 103–107; BP diastolic 68–78; PULSE 95–112; RESP 15–18; TEMP 98.2–98.8; O2SAT 95–98
[2022-08-09] MEDS: PANTOPRAZOLE SOD 40 MG TABEC PO SCH (09:08)
[2022-08-09] MEDS: TAMSULOSIN HCL 0.4 MG CAP PO SCH (09:08)
[2022-08-09] MEDS: DOCUSATE SODIUM 100 MG CAP PO SCH ×2 (09:08→17:00)
[2022-08-09] MEDS: Morphine 2mg Syringe 2 MG/ML SYR IV PRN (15:40)
[2022-08-09] MEDS: HYDROCODONE/APAP 5MG-325MG TAB PO PRN ×2 (18:19→22:25)
[2022-08-09] MEDS: MELATONIN 3 MG TAB PO SCH (20:33)
[2022-08-09] MEDS: OLANZAPINE 5 MG TAB PO SCH (20:33)
[2022-08-09] MEDS: LAMOTRIGINE 100 MG TAB PO SCH (20:33)
[2022-08-10] VITALS (7 sets, daily range): BP systolic 99–116; BP diastolic 73–84; PULSE 90–107; RESP 15–18; TEMP 97.1–98.4; O2SAT 94–99
[2022-08-10] MEDS: HYDROCODONE/APAP 5MG-325MG TAB PO PRN ×3 (04:07→22:29)
[2022-08-10] MEDS: TAMSULOSIN HCL 0.4 MG CAP PO SCH (08:18)
[2022-08-10] MEDS: DOCUSATE SODIUM 100 MG CAP PO SCH ×2 (08:18→15:31)
[2022-08-10] MEDS: PANTOPRAZOLE SOD 40 MG TABEC PO SCH (08:18)
[2022-08-10] MEDS ORDERED: SODIUM CHLORIDE 0.9% 1000ML 1,000 ML IV SCH (16:00)
[2022-08-10] MEDS: LAMOTRIGINE 100 MG TAB PO SCH (20:37)
[2022-08-10] MEDS: OLANZAPINE 5 MG TAB PO SCH (20:37)
[2022-08-10] MEDS: MELATONIN 3 MG TAB PO SCH (20:37)
[2022-08-11] VITALS (8 sets, daily range): BP systolic 93–123; BP diastolic 60–83; PULSE 90–119; RESP 16–22; TEMP 97.6–99.2; O2SAT 96–100
[2022-08-11] MEDS: HYDROCODONE/APAP 5MG-325MG TAB PO PRN ×2 (05:47→19:17)
[2022-08-11] MEDS: PANTOPRAZOLE SOD 40 MG TABEC PO SCH (08:46)
[2022-08-11] MEDS: DOCUSATE SODIUM 100 MG CAP PO SCH ×3 (08:46→16:59)
[2022-08-11] MEDS: TAMSULOSIN HCL 0.4 MG CAP PO SCH (08:47)
[2022-08-11] MEDS ORDERED: SODIUM CHLORIDE 0.9% 1000ML 1,000 ML IV SCH (13:15)
[2022-08-11] MEDS: OLANZAPINE 5 MG TAB PO SCH (20:27)
[2022-08-11] MEDS: MELATONIN 3 MG TAB PO SCH (20:27)
[2022-08-11] MEDS: LAMOTRIGINE 100 MG TAB PO SCH (20:27)
[2022-08-12] VITALS (8 sets, daily range): BP systolic 102–119; BP diastolic 71–86; PULSE 96–108; RESP 17–19; TEMP 97.8–98.9; O2SAT 96–100
[2022-08-12] MEDS: HYDROCODONE/APAP 5MG-325MG TAB PO PRN ×4 (05:32→20:26)
[2022-08-12 08:32] LABS: BASOPHILS % 0.2 % (0.0-1.0); EOSINOPHILS # (AUTO) 0.1 (0.0-0.4); HEMATOCRIT 32.1 % (34.2-44.1); HEMOGLOBIN 10.3 g/dL (12.0-16.0); LYMPHOCYTES % 23.1 % (18.0-39.1); MEAN CORPUSCULAR HEMOGLOBIN 28.8 pg (28-32); MEAN CORPUSCULAR HGB CONC 32.1 g/dL (31-35); MEAN CORPUSCULAR VOLUME 89.7 fL (81-99); MONOCYTES # (AUTO) 0.6 (0.2-0.8); MONOCYTES % 7.1 % (4.4-11.3); NEUTROPHILS % 68.3 % (38.7-80.0); PLATELET COUNT 327 x10e3/uL (140-360); RED BLOOD COUNT 3.58 x10e6/uL (3.6-5.1); RED CELL DISTRIBUTION WIDTH 13.2 % (11.7-14.4)
[2022-08-12 08:59] LABS: ANION GAP 11.7 mmol/L (8-16); CREATININE, SERUM 0.48 mg/dL (0.57-1.11); POTASSIUM 3.7 mmol/L (3.5-5.1)
[2022-08-12] MEDS: DOCUSATE SODIUM 100 MG CAP PO SCH ×2 (09:00→17:00)
[2022-08-12] MEDS: PANTOPRAZOLE SOD 40 MG TABEC PO SCH (09:34)
[2022-08-12] MEDS: TAMSULOSIN HCL 0.4 MG CAP PO SCH (09:34)
[2022-08-12] MEDS: LAMOTRIGINE 100 MG TAB PO SCH (20:25)
[2022-08-12] MEDS: OLANZAPINE 5 MG TAB PO SCH (20:26)
[2022-08-12] MEDS: MELATONIN 3 MG TAB PO SCH (20:26)
[2022-08-12] MEDS: ONDANSETRON HCL 4 MG ORAL DISINTEGRATING TAB PO PRN (22:27)
[2022-08-13] VITALS (8 sets, daily range): BP systolic 96–114; BP diastolic 65–80; PULSE 94–112; RESP 16–18; TEMP 97.8–98.9; O2SAT 96–98
[2022-08-13] MEDS: HYDROCODONE/APAP 5MG-325MG TAB PO PRN ×3 (06:48→16:29)
[2022-08-13] MEDS: PANTOPRAZOLE SOD 40 MG TABEC PO SCH (09:15)
[2022-08-13] MEDS: TAMSULOSIN HCL 0.4 MG CAP PO SCH (09:15)
[2022-08-13] MEDS: DOCUSATE SODIUM 100 MG CAP PO SCH ×2 (09:15→17:00)
[2022-08-13] MEDS ORDERED: CEPACOL SORE THROAT LOZENGES PO ONE (11:30)
[2022-08-13] MEDS ORDERED: CEPACOL SORE THROAT LOZENGES PO PRN (11:30)
[2022-08-13] MEDS: DEXTROSE 5%/0.45% SOD CHL 1,000 ML IV SCH ×2 (12:09→21:10)
[2022-08-13] MEDS ORDERED: SORE THROAT LO1 EAC3 PO (15:03)
[2022-08-13] MEDS ORDERED: HYDROCODON-ACE1 EA11 PO (15:03)
[2022-08-13] MEDS ORDERED: ONDANSETRON ODT4 MG PO (15:03)
[2022-08-13] MEDS: MELATONIN 3 MG TAB PO SCH (21:08)
[2022-08-13] MEDS: LAMOTRIGINE 100 MG TAB PO SCH (21:08)
[2022-08-13] MEDS: OLANZAPINE 5 MG TAB PO SCH (21:09)
[2022-08-14 00:35] VITALS: BP 100/76; PULSE 89; RESP 17; TEMP 97.8; O2SAT 96
[2022-08-14 04:50] VITALS: BP 111/77; PULSE 93; RESP 17; TEMP 98.2; O2SAT 97
[2022-08-14 07:39] VITALS: BP 96/67; PULSE 103; RESP 18; TEMP 98.8; O2SAT 97
[2022-08-14] MEDS: HYDROCODONE/APAP 5MG-325MG TAB PO PRN (07:54)
== END 2022-08-14 08:20 | DRG 534 ==
LOC: ER 17:48 → ERHOLD 19:42 → MED/SURG 22:51 → OBSVTOIN 08-03 09:03
PROVIDERS: ADMIT Internal Medicine; ATTEND Internal Medicine
DX: S72.402A Unspecified fracture of lower end of left femur, initial encounter for closed fracture (principal); W06.XXXA Fall from bed, initial encounter; I25.10 Atherosclerotic heart disease of native coronary artery without angina pectoris; N20.0 Calculus of kidney; G40.909 Epilepsy, unspecified, not intractable, without status epilepticus; K21.9 Gastro-esophageal reflux disease without esophagitis; F31.9 Bipolar disorder, unspecified; G35 Multiple sclerosis; G47.00 Insomnia, unspecified; J45.909 Unspecified asthma, uncomplicated; F79 Unspecified intellectual disabilities; Z96.0 Presence of urogenital implants; R91.1 Solitary pulmonary nodule; Z20.822 Contact with and (suspected) exposure to COVID-19; Z74.01 Bed confinement status; Y92.128 Other place in nursing home as the place of occurrence of the external cause; Z86.718 Personal history of other venous thrombosis and embolism; Z87.440 Personal history of urinary (tract) infections; Z79.899 Other long term (current) drug therapy
CPT/HCPCS: 36415; 71045; 80048; 80053; 85025; 94799; 96360; 99252; 99284; G0378; J2270; J2405; J7030; Q0162

== ENCOUNTER 2023-10-15 21:04 | Emergency (ER) | payer OTHER ==
[~2023-10-15] VITALS: Ht 165.1 cm; Wt 77.1 kg
[~2023-10-15 21:04] MED LIST changes: +BENZONATATE100 MG PO; +ERGOCALCIFEROL1 GM PO; +HYDROCODON-ACE1 EA11 PO; +LAMOTRIGINE100 MG PO; +ONDANSETRON ODT4 MG PO; +SORE THROAT LO1 EAC3 PO; +ZYPREXA5 MG PO
[2023-10-15 21:59] LABS: BASOPHILS % 0.4 % (0.0-1.0); EOSINOPHILS # (AUTO) 0.3 (0.0-0.4); EOSINOPHILS % 3.5 % (0.0-6.0); HEMATOCRIT 41.4 % (34.2-44.1); HEMOGLOBIN 13.2 g/dL (12.0-16.0); LYMPHOCYTES # (AUTO) 4.3 (1.0-3.2); LYMPHOCYTES % 45.5 % (18.0-39.1); MEAN CORPUSCULAR HEMOGLOBIN 29.1 pg (28-32); MEAN CORPUSCULAR HGB CONC 31.9 g/dL (31-35); MEAN CORPUSCULAR VOLUME 91.2 fL (81-99); MONOCYTES # (AUTO) 0.6 (0.2-0.8); MONOCYTES % 6.4 % (4.4-11.3); NEUTROPHILS # (AUTO) 4.1 (2.1-6.9); NEUTROPHILS % 43.9 % (38.7-80.0); PLATELET COUNT 238 x10e3/uL (140-360); RED BLOOD COUNT 4.54 x10e6/uL (3.6-5.1); RED CELL DISTRIBUTION WIDTH 13.5 % (11.7-14.4); WHITE BLOOD COUNT 9.41 x10e3/uL (4.8-10.8)
[2023-10-15 22:13] LABS: ALBUMIN 3.9 g/dL (3.5-5.0); ANION GAP 21.3 mmol/L (8-16); BILIRUBIN,TOTAL 0.2 mg/dL (0.2-1.2); CALCIUM 9.4 mg/dL (8.4-10.2); CREATININE, SERUM 0.64 mg/dL (0.57-1.11); POTASSIUM 4.3 mmol/L (3.5-5.1); TOTAL PROTEIN 7.9 g/dL (6.5-8.1)
[2023-10-15 22:14] LABS: LIPASE 90 U/L (8-78)
[2023-10-15] MEDS ORDERED: IOPAMIDOL 370 MG/ML 100 ML INFUS..BTL INJ ONE (22:27)
[2023-10-15 23:28] LABS: BILIRUBIN,URINE NEGATIVE (NEGATIVE); CLARITY,URINE CLEAR (CLEAR); COLOR,URINE YELLOW (YELLOW); GLUCOSE, URINE NEGATIVE (NEGATIVE); KETONES,URINE NEGATIVE (NEGATIVE); LEUKOCYTE ESTERASE ,URINE TRACE (NEGATIVE); NITRITE,URINE POSITIVE (NEGATIVE); PH,URINE 7 (5 - 7); PROTEIN,URINE DIPSTICK NEGATIVE (NEGATIVE); URINE UROBILINOGEN 0.2 mg/dL (0.2 - 1)
[2023-10-15 23:30] LABS: BACTERIA,URINE MANY /HPF; EPITHELIAL CELLS,URINE MODERATE /LPF; WBC,URINE (MAN) >50 /HPF (0-5)
[2023-10-16] VITALS: PULSE 84; RESP 17; TEMP 98; O2SAT 100
[2023-10-16] MEDS ORDERED: CEFDINIR300 MG PO (00:08)
[2023-10-16] MEDS ORDERED: CEFDINIR 300 MG CAP ONE (00:13)
[2023-10-16] MEDS: CEFDINIR 300 MG CAP PO ONE (00:23)
== END 2023-10-16 00:46 | disposition home or self-care (01) ==
LOC: ER 21:10
DX: R10.32 Left lower quadrant pain (principal); N39.0 Urinary tract infection, site not specified; F79 Unspecified intellectual disabilities; R11.0 Nausea; G40.909 Epilepsy, unspecified, not intractable, without status epilepticus; J45.909 Unspecified asthma, uncomplicated; I25.10 Atherosclerotic heart disease of native coronary artery without angina pectoris; G35 Multiple sclerosis; K21.9 Gastro-esophageal reflux disease without esophagitis; F32.A Depression, unspecified; Z86.718 Personal history of other venous thrombosis and embolism; Z87.442 Personal history of urinary calculi
CPT/HCPCS: 36415; 74177; 80053; 81001; 83690; 84702; 85025; 87086; 87186; 99284; Q9967

== ENCOUNTER 2023-12-22 12:02 | Emergency (ER) | payer OTHER ==
[~2023-12-22] VITALS: Ht 165.1 cm; Wt 77.1 kg
[~2023-12-22 12:02] MED LIST changes: +CEFDINIR300 MG PO
[2023-12-22 12:58] LABS: BASOPHILS % 0.2 % (0.0-1.0); EOSINOPHILS # (AUTO) 0.1 (0.0-0.4); EOSINOPHILS % 0.9 % (0.0-6.0); HEMATOCRIT 48.3 % (34.2-44.1); HEMOGLOBIN 15.2 g/dL (12.0-16.0); LYMPHOCYTES # (AUTO) 2.9 (1.0-3.2); LYMPHOCYTES % 28.2 % (18.0-39.1); MEAN CORPUSCULAR HEMOGLOBIN 29.5 pg (28-32); MEAN CORPUSCULAR HGB CONC 31.5 g/dL (31-35); MEAN CORPUSCULAR VOLUME 93.6 fL (81-99); MONOCYTES # (AUTO) 0.6 (0.2-0.8); NEUTROPHILS # (AUTO) 6.7 (2.1-6.9); NEUTROPHILS % 64.5 % (38.7-80.0); PLATELET COUNT 232 x10e3/uL (140-360); RED BLOOD COUNT 5.16 x10e6/uL (3.6-5.1); RED CELL DISTRIBUTION WIDTH 13.2 % (11.7-14.4)
[2023-12-22 13:18] LABS: ALBUMIN 4.5 g/dL (3.5-5.0); ANION GAP 17.5 mmol/L (8-16); BILIRUBIN,TOTAL 0.3 mg/dL (0.2-1.2); CALCIUM 10.3 mg/dL (8.4-10.2); CREATININE, SERUM 0.67 mg/dL (0.57-1.11); POTASSIUM 4.5 mmol/L (3.5-5.1)
[2023-12-22] MEDS ORDERED: SODIUM CHLORIDE 0.9% 0 ML ONE (13:38)
[2023-12-22] MEDS ORDERED: IOPAMIDOL 370 MG/ML 100 ML INFUS..BTL INJ ONE (13:38)
[2023-12-22 15:44] VITALS: PULSE 86; RESP 17; TEMP 98.7; O2SAT 98
== END 2023-12-22 16:00 | disposition home or self-care (01) ==
LOC: ER 12:26
DX: K62.5 Hemorrhage of anus and rectum (principal); K59.00 Constipation, unspecified; K64.9 Unspecified hemorrhoids
CPT/HCPCS: 36415; 80053; 84702; 85025; 99284; J7050; Q9967

== ENCOUNTER → 2024-04-24 | Outpatient (REF) | payer MEDICAID | LOC: CT 11:40 | PROVIDERS: ATTEND Urology | DX: N20.0 Calculus of kidney (principal) | CPT/HCPCS: 74176 ==

== ENCOUNTER 2024-06-09 15:31 | Emergency (ER) | payer MEDICAID ==
[~2024-06-09] VITALS: Ht 165.1 cm; Wt 77.1 kg
[2024-06-09 19:03] LABS: BASOPHILS % 0.2 % (0.0-1.0); EOSINOPHILS # (AUTO) 0.1 (0.0-0.4); EOSINOPHILS % 1.1 % (0.0-6.0); HEMATOCRIT 38.8 % (34.2-44.1); HEMOGLOBIN 12.7 g/dL (12.0-16.0); LYMPHOCYTES # (AUTO) 3.5 (1.0-3.2); LYMPHOCYTES % 32.5 % (18.0-39.1); MEAN CORPUSCULAR HEMOGLOBIN 29.6 pg (28-32); MEAN CORPUSCULAR HGB CONC 32.7 g/dL (31-35); MEAN CORPUSCULAR VOLUME 90.4 fL (81-99); MONOCYTES # (AUTO) 0.6 (0.2-0.8); MONOCYTES % 5.5 % (4.4-11.3); NEUTROPHILS # (AUTO) 6.4 (2.1-6.9); NEUTROPHILS % 60.3 % (38.7-80.0); PLATELET COUNT 241 x10e3/uL (140-360); RED BLOOD COUNT 4.29 x10e6/uL (3.6-5.1); RED CELL DISTRIBUTION WIDTH 13.4 % (11.7-14.4); WHITE BLOOD COUNT 10.64 x10e3/uL (4.8-10.8)
[2024-06-09 19:21] LABS: COLOR,URINE YELLOW (YELLOW)
[2024-06-09 19:22] LABS: ALBUMIN 3.6 g/dL (3.5-5.0); ALBUMIN/GLOBULIN RATIO 0.9 (0.8-2.0); ANION GAP 15.3 mmol/L (8-16); BILIRUBIN,TOTAL 0.3 mg/dL (0.2-1.2); CALCIUM 9.2 mg/dL (8.4-10.2); CREATININE, SERUM 0.58 mg/dL (0.57-1.11); POTASSIUM 4.3 mmol/L (3.5-5.1); TOTAL PROTEIN 7.7 g/dL (6.5-8.1)
[2024-06-09 19:22] LABS: BILIRUBIN,URINE NEGATIVE (NEGATIVE); CLARITY,URINE SL CLOUDY (CLEAR); GLUCOSE, URINE NEGATIVE (NEGATIVE); KETONES,URINE NEGATIVE (NEGATIVE); LEUKOCYTE ESTERASE ,URINE NEGATIVE (NEGATIVE); NITRITE,URINE NEGATIVE (NEGATIVE); PH,URINE 7.5 (5 - 7); PREGNANCY TEST, URINE NEGATIVE (NEGATIVE); PROTEIN,URINE DIPSTICK NEGATIVE (NEGATIVE); URINE UROBILINOGEN 0.2 mg/dL (0.2 - 1)
[2024-06-09] MEDS: ONDANSETRON HCL INJ 2MG/ML 2ML 2 MG/ML VIAL IV STA ×2 (19:25→20:57)
[2024-06-09] MEDS: SODIUM CHLORIDE 0.9% 1000ML 1,000 ML IV STA (19:25)
[2024-06-09] MEDS: Morphine 4mg INJECTION 4 MG/ML INJ IV STA (19:25)
[2024-06-09] MEDS ORDERED: IOPAMIDOL 370 MG/ML 100 ML INFUS..BTL INJ ONE (19:28)
[2024-06-09 22:24] VITALS: PULSE 85; RESP 16; TEMP 98.2; O2SAT 97
== END 2024-06-09 22:27 | disposition home or self-care (01) ==
LOC: ER 17:55
DX: Z48.01 Encounter for change or removal of surgical wound dressing (principal); I25.10 Atherosclerotic heart disease of native coronary artery without angina pectoris; G40.909 Epilepsy, unspecified, not intractable, without status epilepticus; K21.9 Gastro-esophageal reflux disease without esophagitis; G35 Multiple sclerosis; F79 Unspecified intellectual disabilities; Z86.718 Personal history of other venous thrombosis and embolism; Z87.442 Personal history of urinary calculi
CPT/HCPCS: 36415; 74177; 80053; 81001; 81025; 83690; 85025; 99284; J2270; J2405; J7030; Q9967